=== PATIENT | female | born 1935 | race Caucasian/White ===

== ENCOUNTER 2017-07-27 11:46 | Inpatient (IN) | payer BC, OTHER ==
[~2017-07-27] VITALS: Ht 154.9 cm; Wt 67.5 kg
[~2017-07-27 11:46] MED LIST: ACET-1311 PO; BNT10 PO; CHOLTAB3 PO; ESCI10TA17 PO; LORA-741 PO; MULT-506 PO; PRLSR20 PO; PRMVC TOP; RANI300T2 PO; ZOLE5INJ PO; [UNRECOGNIZED DRUG - CODE] PO
[2017-07-27] MEDS ORDERED: VTMD400 PO (12:44)
[2017-07-27] MEDS ORDERED: RANI150T3 PO (12:44)
[2017-07-27] MEDS ORDERED: ESTCR PV (12:44)
[2017-07-27] MEDS ORDERED: MULTCHW PO (12:44)
[2017-07-27] MEDS ORDERED: BNT/10 PO (12:44)
[2017-07-27] MEDS ORDERED: NUTR-706 PO (12:44)
[2017-07-27] MEDS ORDERED: GABA-113 PO (12:45)
[2017-07-27] MEDS ORDERED: ASPIRIN 81 MG CHEW PO STA (12:45)
[2017-07-27 12:59] LABS: BASO % 0.9 %; BASO ABS # 0.08 K/uL (0-0.2); COMPLETE YES; EOS % 2.2 %; HEMATOCRIT 46.8 % (37-47); IG% 0.1 %; LYMPH % 25.8 %; LYMPH ABS # 2.31 K/uL (1.2-3.4); MEAN CORPUSCULAR HEMOGLOBIN 29.9 pg (25-34); MEAN CORPUSCULAR HGB CONC 31.8 g/dl (32-36); MEAN PLATELET VOLUME 9.4 fL (7.4-10.4); MONO % 14.7 %; NEUT % 56.3 %; PLATELET COUNT 276 K/uL (130-400); RED BLOOD COUNT 4.98 M/uL (4.2-5.4); WHITE BLOOD COUNT 8.95 K/uL (4.8-10.8)
[2017-07-27 13:10] LABS: PROTHROMBIN TIME (PATIENT) 10.4 SECONDS (9.0-12.0)
[2017-07-27 13:24] LABS: BLOOD UREA NITROGEN 12 mg/dl (7-18); BUN/CREATININE RATIO 12.2 (10-20); CARBON DIOXIDE 30 mmol/L (21-32); CHLORIDE 105 mmol/L (98-107); CREATININE 0.95 mg/dl (0.60-1.20); GLUCOSE 90 mg/dl (70-99); MAGNESIUM 2.5 mg/dl (1.8-2.4); SODIUM 139 mmol/L (136-145)
--- NOTE | 2017-07-27 13:27 | EMERGENCY ROOM VISIT NOTE ---
History Report prepared by Silvio: Rogers Chau Under the Supervision of: Dr. Randolph Muñoz M.D. First contact with patient: 12:38 Chief Complaint: NEURO SYMPTOMS Stated Complaint: SCIATICA-LEFT LEG/ARM, DOUBLE VISION Nursing Triage Summary: was having left arm numbness and weakness called PCP and was told to come to ER for evaluation. patient states heaviness and numbness of the left arm has improved. with chonic ciaticia pain and taken gabapentin for this states left leg weakness is normal for her. History of Present Illness The patient is a 82 year old female who presents to the Emergency Room with complaints of improving left arm numbness and weakness starting around 6 and half hours ago which improved about two hours ago. The patient sates that she has a history of sciatica in her left leg, and her back was hurting last night, though her left arm and leg felt normal. She denies any numbness or tingling in her face, and she has no history of strokes. The patient states that she does not take any blood thinners. Source of History: patient Onset: 6 and a half hours ago Position: arm (left) Quality: numbness, other (weakness) Timing: other (improving) Associated Symptoms: No numbness (in the face) Review of Systems See HPI for pertinent positives & negatives. A total of 10 systems reviewed and were otherwise negative. Past Medical & Surgical Medical Problems: (1) GERD (gastroesophageal reflux disease) (2) IRRITABLE BOWEL SYNDROME (3) OSTEOPOROSIS NOS Family History FHx: gallbladder disease Social History Smoking Status: Never Smoker Alcohol Use: none Marital Status: Occupation Status: retired Current/Historical Medications Scheduled Cholecalciferol (Vitamin D3), 800 UNITS PO QAM Dicyclomine HCl (Dicyclomine HCl), 10 MG PO AMPM Enteral Nutrition Formula (Ensure), 1 CAN PO DAILY Estradiol Vaginal (Estrace), 0.5 APPL PV 2XWK Gabapentin (Neurontin), 300 MG PO HS Multiple Vitamins W/ Minerals (Centrum Silver), 1 TAB PO DAILY Omeprazole (Prilosec), 20 MG PO DAILY Ranitidine (Zantac), 300 MG PO HS Zoledronic Acid (Reclast), 5 MG PO YEARLY Scheduled PRN Acetaminophen (Tylenol), 325 MG PO UD PRN for Pain Allergies Coded Allergies: Sulfa Drugs (Verified Allergy, Mild, rash, 03/24/13) Cephalosporins (Verified Allergy, Unknown, KELFEX, 04/16/11) HMG-CoA-R Inhibitors (Verified Allergy, Unknown, CRESTOR, 04/16/11) Macrolides (Verified Allergy, Unknown, 04/16/11) Niacin (Verified Allergy, Unknown, 04/16/11) Gabapentin (Verified Adverse Reaction, Intermediate, unknown, 04/16/11) Risedronate (Verified Adverse Reaction, Intermediate, unknown, 04/16/11) Physical Exam Vital Signs Date Time Temp Pulse Resp B/P (MAP) Pulse Ox O2 Delivery O2 Flow Rate FiO2 07/27/17 14:35 76 20 162/88 96 Room Air 07/27/17 13:03 73 20 183/93 95 Room Air 07/27/17 12:17 79 07/27/17 12:14 81 20 180/100 97 Room Air 07/27/17 12:08 97 Room Air 07/27/17 11:53 36.8 111 18 160/95 97 Room Air Physical Exam GENERAL: Patient is in no acute distress. HEENT: No acute trauma, normocephalic atraumatic, mucous membranes moist, no nasal congestion, no scleral icterus. NECK: No stridor, no adenopathy, no meningismus, trachea is midline. LUNGS: Clear to auscultation bilaterally, no wheeze, no rhonchi, breath sounds equal. HEART: Without murmurs gallops or rubs, regular rate and rhythm. ABDOMEN: Soft, nontender, bowel sounds positive, no hernias, no peritonitis. EXTREMITIES: No cyanosis or edema, full range of motion of all the joints without pain or difficulty, no signs for acute trauma. NEUROLOGIC: Oriented x 3, no acute motor or sensory deficits, no focal weakness. Maybe slight weakness in the left leg compared to the right but no drift. No speech slur or facial droop. No cerebellar dysfunction. SKIN: No rash, no jaundice, no diaphoresis. Medical Decision & Procedures ER Provider Diagnostic Interpretation: Radiology results as stated below per my review and radiologist interpretation: CT HEAD WITHOUT CONTRAST (CT) CLINICAL HISTORY: Stroke LEFT ARM TINGLING. APRAXIA. COMPARISON STUDY: 04/22/2011 TECHNIQUE: Axial CT of the brain is performed from the vertex to the skull base. IV contrast was not administered for this examination. A dose lowering technique was utilized adhering to the principles of ALARA. CT DOSE: 788.63 mGycm FINDINGS: No intra or extra-axial mass lesions are visualized. There is no CT evidence of acute cortical infarction. There is no evidence of midline shift. There is no acute hemorrhage. No calvarial fractures are visualized. There are patchy white matter hypodensities likely on a small vessel basis. There is a lacunar infarct within the right basal ganglia. This was not present in 2010, but appears chronic. There is no evidence of pathologic ventricular dilatation. There is a cavum septa pellucida and cavum vergae. There is no evidence of acute sinusitis. An area of hyperdensity within the basilar artery, likely represents partial volume averaging with wall calcification IMPRESSION: No acute intracranial findings Electronically signed by: Sherman Wakefield M.D. 07/27/2017 1:47 PM Dictated Date/Time: 07/27/2017 1:44 PM Laboratory Results 07/27/17 12:30 Red Blood Count 4.98, Mean Corpuscular Volume 94.0, Mean Corpuscular Hemoglobin 29.9, Mean Corpuscular Hemoglobin Concent 31.8, Mean Platelet Volume 9.4, Neutrophils (%) (Auto) 56.3, Lymphocytes (%) (Auto) 25.8, Monocytes (%) (Auto) 14.7, Eosinophils (%) (Auto) 2.2, Basophils (%) (Auto) 0.9, Neutrophils # (Auto ) 5.03, Lymphocytes # (Auto) 2.31, Monocytes # (Auto) 1.32, Eosinophils # (Auto ) 0.20, Basophils # (Auto) 0.08 07/27/17 12:30 Test 07/27/17 12:30 07/27/17 12:40 07/27/17 13:00 White Blood Count 8.95 K/uL (4.8-10.8) Red Blood Count 4.98 M/uL (4.2-5.4) Hemoglobin 14.9 g/dL (12.0-16.0) Hematocrit 46.8 % (37-47) Mean Corpuscular Volume 94.0 fL (80-100) Mean Corpuscular Hemoglobin 29.9 pg (25-34) Mean Corpuscular Hemoglobin Concent 31.8 g/dl (32-36) Platelet Count 276 K/uL (130-400) Mean Platelet Volume 9.4 fL (7.4-10.4) Neutrophils (%) (Auto) 56.3 % Lymphocytes (%) (Auto) 25.8 % Monocytes (%) (Auto) 14.7 % Eosinophils (%) (Auto) 2.2 % Basophils (%) (Auto) 0.9 % Neutrophils # (Auto) 5.03 K/uL (1.4-6.5) Lymphocytes # (Auto) 2.31 K/uL (1.2-3.4) Monocytes # (Auto) 1.32 K/uL (0.11-0.59) Eosinophils # (Auto) 0.20 K/uL (0-0.5) Basophils # (Auto) 0.08 K/uL (0-0.2) RDW Standard Deviation 48.7 fL (36.4-46.3) RDW Coefficient of Variation 14.2 % (11.5-14.5) Immature Granulocyte % (Auto) 0.1 % Immature Granulocyte # (Auto) 0.01 K/uL (0.00-0.02) Prothrombin Time 10.4 SECONDS (9.0-12.0) Prothromb Time International Ratio 1.0 (0.9-1.1) Activated Partial Thromboplast Time 26.1 SECONDS (21.0-31.0) Partial Thromboplastin Ratio 1.0 Anion Gap 4.0 mmol/L (3-11) Est Creatinine Clear Calc Drug Dose 41.5 ml/min Estimated GFR () 65.6 Estimated GFR (Non- 56.6 BUN/Creatinine Ratio 12.2 (10-20) Calcium Level 9.0 mg/dl (8.5-10.1) Magnesium Level 2.5 mg/dl (1.8-2.4) Total Creatine Kinase 50 U/L (26-192) Creatine Kinase MB 1.0 ng/ml (0.5-3.6) Creatine Kinase MB Ratio 2.0 (0-3.0) Troponin I < 0.015 ng/ml (0-0.045) Thyroid Stimulating Hormone (TSH) 3.000 uIu/ml (0.300-4.500) Bedside Glucose 83 mg/dl (70-90) Bedside Prothrombin Time INR 1.0 (0.9-1.1) Laboratory results reviewed by me. Medications Administered Medications (Trade) Dose Ordered Sig/Bradly Route Start Time Stop Time Status Last Admin Dose Admin Sodium Chloride 1,000 ml @ 50 mls/hr Q20H IV 07/27/17 12:45 08/26/17 12:44 07/27/17 14:33 50 MLS/HR Aspirin (Aspirin Chew) 324 mg NOW STAT PO 07/27/17 12:45 07/27/17 12:49 DC 07/27/17 14:33 324 MG ECG Indication: other (stroke symptoms) Rate (beats per minute): 73 Rhythm: normal sinus Findings: no acute ischemic change, no ectopy ED Course 1238: The patient was evaluated in room B12. A complete history and physical exam was performed. 1245: Aspirin 324mg PO, Sodium Chloride 1000 ml @ 50 mls/hr IV 1401: I reevaluated the patient, and I discussed the test results, and she was agreeable to the treatment plan. 1405: Discussed the patient's case with KOSTA Dixon. The patient will be evaluated for further management. Medical Decision Differential Diagnoses include: dehydration, stroke, TIA, intracranial bleed, nerve impingement, electrolyte imbalance, infection, UTI. There is no leukocytosis or concerning anemia. No significant electrolyte abnormality, kidney failure. EKG shows a sinus rhythm, no acute ischemia. Cardiac enzyme testing times one is not consistent with acute cardiac injury. Brain CT does not show any acute bleed or mass effect. Urinalysis does not show infection. There is no coagulopathy. On exam, the patient has some subtle left leg weakness. Her symptoms though apparently have improved significantly since her arrival in the emergency room. The patient presents with left arm weakness and clumsiness. The nursing staff here felt that her left arm was weaker earlier before my evaluation. The patient was given oral aspirin. She is resting comfortably. No return of her weakness or numbness. I did speak with the patient and case management. I spoke to the on-call hospitalist. Further workup in the hospital for TIA or stroke is indicated. Medication Reconcilliation Current Medication List: was personally reviewed by me Blood Pressure Screening Patient's blood pressure: Elevated blood pressure Blood pressure disposition: Referred to PCP Consults Time Called: 1357 Consulting Physician: KOSTA Dixon Returned Call: [phone] Discussed the patient's case with KOSTA Dixon. The patient will be evaluated for further management. Impression Primary Impression: Stroke-like symptoms Scribe Attestation The scribe's documentation has been prepared under my direction and personally reviewed by me in its entirety. I confirm that the note above accurately reflects all work, treatment, procedures, and medical decision making performed by me. Departure Information Dispostion Being Evaluated By Hospitalist Referrals Caroline Liu M.D. (PCP) Patient Instructions My [facility] Stroke History Time Last Known Well 6.5 hours ago Stroke t-PA Criteria Reviewed Does NOT meet criteria for t-PA Reason t-PA Not Given Treatment not indicated
--- NOTE | 2017-07-27 13:48 | DIAGNOSTIC IMAGING REPORT ---
CT HEAD WITHOUT CONTRAST (CT) CLINICAL HISTORY: Stroke LEFT ARM TINGLING. APRAXIA. COMPARISON STUDY: 04/22/2011 TECHNIQUE: Axial CT of the brain is performed from the vertex to the skull base. IV contrast was not administered for this examination. A dose lowering technique was utilized adhering to the principles of ALARA. CT DOSE: 788.63 mGycm FINDINGS: No intra or extra-axial mass lesions are visualized. There is no CT evidence of acute cortical infarction. There is no evidence of midline shift. There is no acute hemorrhage. No calvarial fractures are visualized. There are patchy white matter hypodensities likely on a small vessel basis. There is a lacunar infarct within the right basal ganglia. This was not present in 2010, but appears chronic. There is no evidence of pathologic ventricular dilatation. There is a cavum septa pellucida and cavum vergae. There is no evidence of acute sinusitis. An area of hyperdensity within the basilar artery, likely represents partial volume averaging with wall calcification IMPRESSION: No acute intracranial findings Electronically signed by: Sherman Wakefield M.D. 07/27/2017 1:47 PM Dictated Date/Time: 07/27/2017 1:44 PM
[2017-07-27] MEDS: SODIUM CHLORIDE 0.9% 1000ML 1,000 ML IV SCH (14:33)
[2017-07-27] MEDS ORDERED: ACETAMINOPHEN 325 MG TAB PO PRN (15:15)
[2017-07-27] MEDS ORDERED: ONDANSETRON INJ 2 MG/ML 2 ML VIAL IV PRN (15:15)
[2017-07-27] MEDS ORDERED: POLYETHYLENE (MIRALAX) 17 GM PACK PO PRN (15:15)
[2017-07-27] MEDS ORDERED: PHARMACIST DISCHARGE MED REC CONSULT PRN (15:15)
[2017-07-27] MEDS ORDERED: LORAZEPAM 2 MG/ML 1 ML VIAL IV ONE (15:30)
--- NOTE | 2017-07-27 15:50 | History and Physical ---
History & Physical Date & Time of Service: Jul 27, 2017 at 15:29 Chief Complaint: Sciatica-Left Leg/Arm, Double Vision Primary Care Physician: Caroline Liu M.D. 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 She was in her normal state of health when she woke up this morning. 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 Describes a feeling of weakness, as well as numbness and a sensation of cold in the L arm, forearm and hand. Was able to place cane in other hand and ambulate downstairs without problem. Denies any dysphagia or difficulty eating breakfast. Contacted her PCP and was advised to come to the ED for further evaluation. Symptoms continued to improve and completed resolved within 4 hours of their start. States that her L arm still feels "funny" but denies any weakness, numbness or sensory deficit. Denies any confusion, headache , blurred vision, CP, SOB, new weakness in extremities. Patient endorses a chronic weakness/numbness in L leg 2/2 sciatica. No history of heart disease, arrhythmias, prior CVA, or history of DVT/PE. Currently lives alone in a house and ambulates with a cane. Past Medical/Surgical History Medical Problems: (1) DIVERTICULITIS COLON (W/O MENT OF HEMORRHAGE) Status: Resolved (2) IRRITABLE BOWEL SYNDROME Status: Chronic (3) OSTEOPOROSIS NOS Status: Chronic (4) URIN TRACT INFECTION NOS Status: Resolved Family History FHx: gallbladder disease Social History Smoking Status: Never Smoker Marital Status: Housing status: lives alone Occupational Status: retired Immunizations History of Influenza Vaccine: N/A Influenza Vaccine Date: Aug 13, 2009 History of Tetanus Vaccine?: Unknown Tetanus Immunization Date: Jul 23, 2005 History of Pneumococcal: Yes Pneumococcal Date: April 03, 2003 History of Hepatitis B Vaccine: Unknown Multi-Drug Resistant Organisms History of MDRO: No Allergies Coded Allergies: Sulfa Drugs (Verified Allergy, Mild, rash, 03/24/13) Cephalosporins (Verified Allergy, Unknown, KELFEX, 04/16/11) HMG-CoA-R Inhibitors (Verified Allergy, Unknown, CRESTOR, 04/16/11) Macrolides (Verified Allergy, Unknown, 04/16/11) Niacin (Verified Allergy, Unknown, 04/16/11) Gabapentin (Verified Adverse Reaction, Intermediate, unknown, 04/16/11) Risedronate (Verified Adverse Reaction, Intermediate, unknown, 04/16/11) Home Medications Scheduled Cholecalciferol (Vitamin D3), 800 UNITS PO QAM Dicyclomine HCl (Dicyclomine HCl), 10 MG PO AMPM Enteral Nutrition Formula (Ensure), 1 CAN PO DAILY Estradiol Vaginal (Estrace), 0.5 APPL PV 2XWK Gabapentin (Neurontin), 300 MG PO HS Multiple Vitamins W/ Minerals (Centrum Silver), 1 TAB PO DAILY Omeprazole (Prilosec), 20 MG PO DAILY Ranitidine (Zantac), 300 MG PO HS Zoledronic Acid (Reclast), 5 MG PO YEARLY Scheduled PRN Acetaminophen (Tylenol), 325 MG PO UD PRN for Pain Review of Systems Ten systems reviewed and negative except as noted in the HPI. Physical Exam Vital Signs Date Time Temp Pulse Resp B/P (MAP) Pulse Ox O2 Delivery O2 Flow Rate FiO2 07/27/17 15:19 73 20 169/82 96 Room Air 07/27/17 14:35 76 20 162/88 96 Room Air 07/27/17 13:03 73 20 183/93 95 Room Air 07/27/17 12:17 79 07/27/17 12:14 81 20 180/100 97 Room Air 07/27/17 12:08 97 Room Air 07/27/17 11:53 36.8 111 18 160/95 97 Room Air General Appearance: WD/WN, no apparent distress Head: normocephalic, atraumatic Eyes: normal inspection, PERRL, EOMI, sclerae normal ENT: normal ENT inspection (hearing loss in R ear) Neck: supple, no adenopathy, thyroid normal, trachea midline Respiratory/Chest: chest non-tender, lungs clear, normal breath sounds, no respiratory distress, no accessory muscle use Cardiovascular: regular rate, rhythm, no JVD, no murmur, normal peripheral pulses Abdomen/GI: normal bowel sounds, non tender, soft, no organomegaly Back: normal inspection Extremities/Musculoskelatal: normal inspection, no calf tenderness, normal capillary refill, no pedal edema Neurologic/Psych: binder caser II-XII nml as tested, no motor/sensory deficits (5/5 MARLA in all four extremities. Cerebellar tests intact. No pronator drift. ), alert, normal mood/affect, oriented x 3 Skin: normal color, warm/dry, no rash Diagnostics Laboratory Results Results Past 24 Hours Test 07/27/17 12:30 07/27/17 12:40 Range/Units White Blood Count 8.95 4.8-10.8 K/uL Red Blood Count 4.98 4.2-5.4 M/uL Hemoglobin 14.9 12.0-16.0 g/dL Hematocrit 46.8 37-47 % Mean Corpuscular Volume 94.0 80-100 fL Mean Corpuscular Hemoglobin 29.9 25-34 pg Mean Corpuscular Hemoglobin Concent 31.8 32-36 g/dl Platelet Count 276 130-400 K/uL Mean Platelet Volume 9.4 7.4-10.4 fL Neutrophils (%) (Auto) 56.3 % Lymphocytes (%) (Auto) 25.8 % Monocytes (%) (Auto) 14.7 % Eosinophils (%) (Auto) 2.2 % Basophils (%) (Auto) 0.9 % Neutrophils # (Auto) 5.03 1.4-6.5 K/uL Lymphocytes # (Auto) 2.31 1.2-3.4 K/uL Monocytes # (Auto) 1.32 0.11-0.59 K/uL Eosinophils # (Auto) 0.20 0-0.5 K/uL Basophils # (Auto) 0.08 0-0.2 K/uL RDW Standard Deviation 48.7 36.4-46.3 fL RDW Coefficient of Variation 14.2 11.5-14.5 % Immature Granulocyte % (Auto) 0.1 % Immature Granulocyte # (Auto) 0.01 0.00-0.02 K/uL Prothrombin Time 10.4 9.0-12.0 SECONDS Prothromb Time International Ratio 1.0 0.9-1.1 Activated Partial Thromboplast Time 26.1 21.0-31.0 SECONDS Partial Thromboplastin Ratio 1.0 Sodium Level 139 136-145 mmol/L Potassium Level 4.0 3.5-5.1 mmol/L Chloride Level 105 98-107 mmol/L Carbon Dioxide Level 30 21-32 mmol/L Anion Gap 4.0 3-11 mmol/L Blood Urea Nitrogen 12 7-18 mg/dl Creatinine 0.95 0.60-1.20 mg/dl Est Creatinine Clear Calc Drug Dose 41.5 ml/min Estimated GFR () 65.6 Estimated GFR (Non- 56.6 BUN/Creatinine Ratio 12.2 10-20 Random Glucose 90 70-99 mg/dl Calcium Level 9.0 8.5-10.1 mg/dl Magnesium Level 2.5 1.8-2.4 mg/dl Total Creatine Kinase 50 26-192 U/L Creatine Kinase MB 1.0 0.5-3.6 ng/ml Creatine Kinase MB Ratio 2.0 0-3.0 Troponin I < 0.015 0-0.045 ng/ml Thyroid Stimulating Hormone (TSH) 3.000 0.300-4.500 uIu/ml Bedside Glucose 83 70-90 mg/dl Impression Assessment and Plan Patient is an 82yo F with a PMH of 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 Stroke/TIA rule out: -Patient's symptoms lasted for 4 hours before resolving in ED -Denies PMH of heart disease, CVA -CT head without acute intracranial findings. Shows a chronic lacunar infarct within R basal ganglia -Normal neuro exam -Given aspirin in ED, started on atorvastatin -Ordered MRI brain without contrast, MRA head and neck, echo with bubble study -PT, OT speech evals, per protocol -Hgb a1c and fasting lipids in AM -Neuro consulted -Monitor on tele Left-sided Sciatica: -Chronic L leg numbness/weakness for past year -H/o degenerative lumbar disc disease -Continue Gabapentin IBS: -Stable -Continue dicyclomine GERD: -Continue ranitidine Osteoporosis: -H/o vertebral fx 2/2 osteoporosis -Reclast 5mg infusion yearly DVT Ppx: SCDs, per stroke rule out protocol Code status: FULL PCP: Noe Dispo: LES consulted to help with discharge placement due to patient of 82 yo living at home Attending Physician Addendum, Dr. Miles I have examined the patient and worked with MAINE Puente on the above assessment and plan and would like to add the following comments This is a 82 F with left arm weakness at home x 4 hours which resolved without intervention and arrived to the ED with negative CT head imaging. On exam in the ED, patient had non focal neurological exam and no impairments of her upper extremities. For example, I was able to observe her capable of make use of fine hand movements to open her purse to search for her home medication lists. Will continue to further explore neurological differentiations with MRI/MRA. Patient also placed on telemetry monitoring if symptoms caused by arrhythmia however has denied cardiac respiratory symptoms with regular cardiac exam and EKG. Continue home medications for neuropathic pain. Level of Care Telemetry Resuscitation Status FULL RESUSCITATION VTE Prophylaxis VTE Risk Assessment Done? Y/N: Yes Risk Level: Moderate Given or contraindicated: SCD's Social Service Consult >80 yr.& Lives Alone
[2017-07-27 17:29] VITALS: BP 126/84; TEMP 36.8; O2SAT 96; Ht 154.9 cm; Wt 67.5 kg
[2017-07-27] MEDS ORDERED: LORAZEPAM INJ 0.5 MG in SYRINGE 0.75 ML IV SCH (18:00)
[2017-07-27] MEDS: DICYCLOMINE HCL 20 MG TAB PO SCH ×2 (18:23→21:17)
[2017-07-27 18:37] LABS: URINE APPEARANCE CLEAR (CLEAR); URINE BILIRUBIN NEG (NEG); URINE COLOR YELLOW; URINE NITRITE NEG (NEG); URINE SPECIFIC GRAVITY 1.014 (1.000-1.030); UROBILINOGEN NEG (NEG); ZZUR CULT IF INDIC CLEAN CATCH NO
[2017-07-27 18:41] LABS: MANUAL MICROSCOPIC REQUIRED? NO; REVIEW REQ? NO
[2017-07-27 20:11] VITALS: O2SAT 96
[2017-07-27 21:11] VITALS: BP 118/74; PULSE 79; TEMP 37.1; O2SAT 92
[2017-07-27] MEDS: RANITIDINE HCL 150 MG TAB PO SCH (21:17)
[2017-07-27] MEDS: GABAPENTIN 300 MG CAP PO SCH (21:17)
[2017-07-27 23:40] VITALS: BP 135/84; PULSE 86; TEMP 36.4; O2SAT 93
[2017-07-28] VITALS (8 sets, daily range): BP systolic 119–126; BP diastolic 70–83; PULSE 75–95; TEMP 36.4–36.8; O2SAT 93–96
[2017-07-28] MEDS ORDERED: GADAVIST IV PRN
[2017-07-28] MEDS: DICYCLOMINE HCL 20 MG TAB PO SCH ×4 (06:08→20:35)
[2017-07-28 06:13] LABS: ESTIMATED AVERAGE GLUCOSE 120 mg/dl; HA1C FLAG Normal (Normal)
[2017-07-28] MEDS ORDERED: BOOST VANILLA PO SCH ×2 (06:30)
[2017-07-28 06:35] LABS: BASO % 0.8 %; BASO ABS # 0.07 K/uL (0-0.2); COMPLETE YES; EOS % 2.7 %; HEMATOCRIT 44.1 % (37-47); IG% 0.3 %; LYMPH % 22.6 %; LYMPH ABS # 2.04 K/uL (1.2-3.4); MEAN CELL VOLUME 91.9 fL (80-100); MEAN CORPUSCULAR HGB CONC 33.8 g/dl (32-36); MEAN PLATELET VOLUME 9.6 fL (7.4-10.4); MONO % 16.6 %; PLATELET COUNT 242 K/uL (130-400); WHITE BLOOD COUNT 9.01 K/uL (4.8-10.8)
[2017-07-28 07:04] LABS: BUN/CREATININE RATIO 14.2 (10-20); CALCIUM 8.9 mg/dl (8.5-10.1); CREATININE 0.84 mg/dl (0.60-1.20); POTASSIUM 3.8 mmol/L (3.5-5.1)
[2017-07-28 07:07] LABS: CHOLESTEROL/HDL RATIO 4.6
--- NOTE | 2017-07-28 07:25 | DIAGNOSTIC IMAGING REPORT ---
MRA HEAD WITHOUT CONTRAST, MRA NECK COMBO, BRAIN WITHOUT CONTRAST CLINICAL HISTORY: 82 years-old Female presenting with stroke. TECHNIQUE: Multiplanar, multisequence MR imaging of the brain was performed without use of intravenous contrast. Additionally, MR angiography of the head was performed without the use of intravenous contrast using 3-D [id number] technique, and MR angiography of the neck was performed before and after administration of intravenous contrast. 3-D volumetric and/or maximum intensity projection (MIP) images were subsequently reconstructed for review. IV contrast: 6.5 mL of Gadavist.. Stenosis measurements were based on NASCET-like criteria. COMPARISON: CT head performed earlier the same day. FINDINGS: MR brain: Proportional ventricular and sulcal prominence, likely age-related in loss. Persistent cavum septi pellucidi. No evidence of midline shift or mass effect. No restricted diffusion to suggest acute ischemia. No evidence of hemorrhage. Periventricular and subcortical white matter T2/FLAIR hyperintensity nonspecific but likely chronic small vessel ischemic change. One focus in the subcortical white matter of the right frontal lobe also demonstrates an old lacunar infarct. Probable old left cerebellar infarct. Old lacunar infarct likely present in the right basal ganglia. No extra-axial fluid collection. T2 skull base flow voids preserved. MRA head: Anterior circulation including the carotid termini and anterior and middle cerebral arteries patent. Anterior communicating artery patent. Codominant vertebral arteries. Posterior circulation including the vertebrobasilar system and superior cerebellar arteries patent. origin of the bilateral posterior cerebral arteries with widely patent posterior communicating arteries. No evidence of occlusion, stenosis, or aneurysm. MRA neck: Cervical vessels including the bilateral common and internal carotid arteries and codominant vertebral arteries patent at their origins and along their courses. Evaluation of the vertebral arteries is mildly degraded by early opacification of paravertebral veins. No evidence of occlusion, stenosis, or aneurysm. IMPRESSION: 1. No acute intracranial pathology. 2. Chronic small vessel ischemic change and old lacunar infarcts as well as probable old left cerebellar infarct. 3. No evidence of occlusion, stenosis, or aneurysm in the intracranial arteries. 4. No evidence of occlusion, stenosis, aneurysm in the cervical arteries. Electronically signed by: Zak Koroma M.D. 07/28/2017 7:24 AM Dictated Date/Time: 07/28/2017 7:09 AM
[2017-07-28] MEDS: SODIUM CHLORIDE 0.9% 1000ML 1,000 ML IV SCH (08:53)
[2017-07-28] MEDS: ATORVASTATIN 40 MG TAB PO SCH ×2 (08:53→09:38)
[2017-07-28] MEDS ORDERED: CHOLECALCIFEROL 1000 INTER.UNIT TAB PO SCH (09:00)
[2017-07-28] MEDS ORDERED: PERFLUTREN LIPID MICROSPHERE (DEFINITY) IV ONE (09:16)
--- NOTE | 2017-07-28 11:16 | ECHOCARDIOGRAM REPORT ---
*NOTICE TO RECEIVING [employer] This information is strictly Confidential and protected under [place] law. [place] law prohibits you from making any further disclosure of this information unless further disclosure is expressly permitted by the written consent of the person to whom it pertains or is authorized by law. A general authorization for the release of medical or other information is not sufficient for this purpose. Hospital accepts no responsibility if the information is made available to any other person, INCLUDING THE PATIENT. Interpretation Summary * Name: ÓSCAR VEGA Study Date: 07/28/2017 07:54 AM BP: 169/82 mmHg * Patient Location: [facility]\S\N283\S\2 HR: 90 * : 1935 (M/d/yyyy) Gender: Female Height: 61 in * Age: 82 yrs Ethnicity: [place] Weight: 148 lb * Ordering Physician: Cyndi Puente * Referring Physician: Self, Referred * Performed By: Nancy Wade RDCS * * Reason For Study: Stroke * BSA: 1.7 m2 * -- Conclusions -- * The left ventricle is normal in size. * There is moderate concentric left ventricular hypertrophy. * The left ventricular wall motion is normal. * Ejection Fraction = 65-70%. * Aortic valve sclerosis mild, without significant aortic valvular stenosis. * There is focal calcification of the noncoronary cusp. * No aortic regurgitation is present. * The interatrial septum is intact with no evidence for an atrial septal defect. * Injection of contrast documented no interatrial shunt. * Grade I diastolic dysfunction, (abnormal relaxation pattern). Procedure Details * A complete two-dimensional transthoracic echocardiogram was performed (2D, M-mode, Doppler and color flow Doppler). * The study was technically difficult. * There were technical limitations due to patient'sbody habitus * A saline contrast injection was performed to assess for cardiac shunting. * The injection was performed through an intravenous line in the right arm. * The attending nurse who injected the saline contrast was Stephanie Jarquin RN. * A total of 20 cc of agitated saline was given. * A contrast injection of Definity was performed to improve assessment of LV function. * Contrast was injected into an intravenous site in the right arm. * One vial of Definity ultrasound contrast was diluted in normal saline to a total volume of 10 ml. A total of '2' ml of solution was administered during imaging. * Lot # [id number] of Definity utilized for procedure. * Expiration date SEP 16. * The attending nurse who injected the contrast agent was Stephanie Jarquin RN. Left Ventricle * The left ventricle is normal in size. * There is moderate concentric left ventricular hypertrophy. * The basal septum is thickened and angulated consistent with sigmoid septum. * Ejection Fraction = 65-70%. * Left ventricular systolic function is normal. * The left ventricular wall motion is normal. Right Ventricle * The right ventricle is normal in size and function. Atria * The left atrial size is normal. * Right atrial size is normal. * The interatrial septum is intact with no evidence for an atrial septal defect. * Injection of contrast documented no interatrial shunt. Mitral Valve * The mitral valve is normal. * There is no mitral valve stenosis. * There is trace mitral regurgitation. Tricuspid Valve * The tricuspid valve is normal. * There is no tricuspid stenosis. * There is trace tricuspid regurgitation. Aortic Valve * The aortic valve is trileaflet. * Aortic valve sclerosis mild, without significant aortic valvular stenosis. * There is focal calcification of the noncoronary cusp. * No hemodynamically significant valvular aortic stenosis. * No aortic regurgitation is present. Pulmonic Valve * The pulmonic valve is not well visualized. Great Vessels * The aortic root is normal size. Pericardium/Pleural * There is no pericardial effusion. Great Vessels * Normal inferior vena cava diameter and respiratory variation suggests normal central venous pressure. Left Ventricular Diastolic Function * Grade I diastolic dysfunction, (abnormal relaxation pattern). MMode 2D Measurements and Calculations IVSd 1.0 cm LVIDd 3.7 cm LVIDs 2.4 cm LVPWd 0.84 cm IVS/LVPW 1.2 FS 34.2 % EDV(Teich) 58.9 ml ESV(Teich) 21.2 ml EF(Teich) 64.0 % EDV(cubed) 51.5 ml ESV(cubed) 14.7 ml EF(cubed) 71.5 % LV mass(C)d 102.0 grams LV mass(C)dI 61.3 grams/m\S\2 CO(Teich) 3.6 l/min CI(Teich) 2.2 l/min/m\S\2 SV(Teich) 37.7 ml SI(Teich) 22.7 ml/m\S\2 CO(cubed) 3.5 l/min CI(cubed) 2.1 l/min/m\S\2 SV(cubed) 36.8 ml SI(cubed) 22.1 ml/m\S\2 Ao root diam 3.4 cm Ao root area 8.9 cm\S\2 ACS 1.4 cm LA dimension 2.5 cm asc Aorta Diam 3.1 cm LA/Ao 0.73 LVOT diam 2.0 cm LVOT area 3.1 cm\S\2 LVAd ap4 24.6 cm\S\2 LVLd ap4 6.8 cm EDV(MOD-sp4) 72.4 ml LVAs ap4 12.1 cm\S\2 LVLs ap4 5.3 cm ESV(MOD-sp4) 23.6 ml EF(MOD-sp4) 67.4 % LVAd ap2 23.1 cm\S\2 LVLd ap2 6.6 cm EDV(MOD-sp2) 65.2 ml LVAs ap2 12.2 cm\S\2 LVLs ap2 5.2 cm ESV(MOD-sp2) 23.5 ml EF(MOD-sp2) 64.0 % CO(MOD-sp4) 4.7 l/min CI(MOD-sp4) 2.8 l/min/m\S\2 SV(MOD-sp4) 48.8 ml SI(MOD-sp4) 29.4 ml/m\S\2 CO(MOD-sp2) 4.0 l/min CI(MOD-sp2) 2.4 l/min/m\S\2 SV(MOD-sp2) 41.7 ml SI(MOD-sp2) 25.1 ml/m\S\2 Doppler Measurements and Calculations MV E max serafin 62.1 cm/sec MV A max serafin 115.4 cm/sec MV E/A 0.54 MV dec time 0.40 sec Ao V2 max 127.6 cm/sec Ao max PG 6.5 mmHg Ao max PG (full) 2.2 mmHg MEAGHAN(V,A) 2.5 cm\S\2 MEAGHAN(V,D) 2.5 cm\S\2 LV V1 max PG 4.3 mmHg LV V1 max 103.3 cm/sec PA V2 max 82.8 cm/sec PA max PG 2.7 mmHg PA acc slope 710.5 cm/sec\S\2 PA acc time 0.07 sec PA pr(Accel) 48.9 mmHg
--- NOTE | 2017-07-28 11:18 | Progress Note ---
Subjective Date of Service: Jul 28, 2017. Subjective Pt evaluation today including: conversation w/ patient, physical exam, lab review, review of studies, review of inpatient medication list Saw/examined the patient in room 283 Patient is doing well today Denies any residual symptoms L hand weakness is resolved No other issues to note today Problem List Medical Problems: (1) Stroke-like symptoms Status: Acute Review of Systems Constitutional: No fever, No chills Respiratory: No cough, No sputum, No shortness of breath Cardiac: No chest pain, No edema Abdomen: No pain, No nausea, No vomiting, No diarrhea Neurologic: + weakness (L hand, improved now), + balance problems (baseline balance problems/uses cane for ambulation), No paralysis, No numbness/tingling, No vertigo Heme: No abnormal bleeding/bruising Medications Current Inpatient Medications Medications (Trade) Dose Ordered Sig/Bradly Route Start Time Stop Time Status Last Admin Dose Admin Sodium Chloride 1,000 ml @ 50 mls/hr Q20H IV 07/27/17 12:45 08/26/17 12:44 07/28/17 08:53 50 MLS/HR Atorvastatin Calcium (Lipitor Tab) 40 mg QAM PO 07/28/17 09:00 08/27/17 08:59 Miscellaneous Information (Pharmacist Discharge Med Rec Consult) 1 ea UD PRN N/A 07/27/17 15:15 08/26/17 15:14 Acetaminophen (Tylenol Tab) 650 mg Q4H PRN PO 07/27/17 15:15 08/26/17 15:14 Ondansetron HCl (Zofran Inj) 4 mg Q6H PRN IV 07/27/17 15:15 08/26/17 15:14 Polyethylene (Miralax Powder Packet) 17 gm DAILY PRN PO 07/27/17 15:15 08/26/17 15:14 Cholecalciferol (Vitamin D Tab) 1,000 inter.unit QAM PO 07/28/17 09:00 08/27/17 08:59 07/28/17 08:53 1,000 INTER.UNIT Dicyclomine HCl (Bentyl Tab) 5 mg ACHS PO 07/27/17 16:00 08/26/17 15:59 07/28/17 06:08 5 MG Gabapentin (Neurontin Cap) 300 mg HS PO 07/27/17 21:00 08/26/17 20:59 07/27/17 21:17 300 MG Ranitidine HCl (zANTac TAB) 300 mg HS PO 07/27/17 21:00 08/26/17 20:59 07/27/17 21:17 300 MG Enteral Nutritional Formula (Boost) 1 can DAILYBB PO 07/28/17 06:30 08/27/17 06:59 07/28/17 06:09 1 CAN Gadobutrol (Gadavist) 6.5 mmol UD PRN IV 07/28/17 00:00 08/01/17 00:00 Aspirin (Ecotrin Tab) 81 mg QAM PO 07/29/17 09:00 08/28/17 08:59 Objective Vital Signs Date Time Temp Pulse Resp B/P (MAP) Pulse Ox O2 Delivery O2 Flow Rate FiO2 07/28/17 08:00 95 Room Air 07/28/17 07:22 36.8 88 18 119/70 (86) 95 Room Air 07/28/17 04:00 Room Air 07/28/17 03:13 36.4 75 18 122/76 (91) 93 Room Air 07/28/17 00:00 Room Air 07/27/17 23:40 36.4 86 18 135/84 (101) 93 Room Air 07/27/17 21:11 37.1 79 18 118/74 (89) 92 Room Air 07/27/17 20:11 96 Room Air 07/27/17 17:29 36.8 18 126/84 96 Room Air 07/27/17 16:40 77 18 126/84 96 07/27/17 15:19 73 20 169/82 96 Room Air 07/27/17 14:35 76 20 162/88 96 Room Air 07/27/17 13:03 73 20 183/93 95 Room Air 07/27/17 12:17 79 07/27/17 12:14 81 20 180/100 97 Room Air 07/27/17 12:08 97 Room Air 07/27/17 11:53 36.8 111 18 160/95 97 Room Air Physical Exam General Appearance: no apparent distress Respiratory/Chest: lungs clear, normal breath sounds, no respiratory distress, no accessory muscle use Cardiovascular: regular rate, rhythm, no edema, no murmur Extremities: normal inspection, no pedal edema, no calf tenderness Neurologic/Psychiatric: palliative medicine physician II-XII nml as tested, no motor/sensory deficits, alert, normal mood/affect, oriented x 3 Laboratory Results Last 24 Hours Test 07/27/17 12:30 07/27/17 12:40 07/27/17 13:00 07/27/17 18:00 White Blood Count 8.95 K/uL Red Blood Count 4.98 M/uL Hemoglobin 14.9 g/dL Hematocrit 46.8 % Mean Corpuscular Volume 94.0 fL Mean Corpuscular Hemoglobin 29.9 pg Mean Corpuscular Hemoglobin Concent 31.8 g/dl Platelet Count 276 K/uL Mean Platelet Volume 9.4 fL Neutrophils (%) (Auto) 56.3 % Lymphocytes (%) (Auto) 25.8 % Monocytes (%) (Auto) 14.7 % Eosinophils (%) (Auto) 2.2 % Basophils (%) (Auto) 0.9 % Neutrophils # (Auto) 5.03 K/uL Lymphocytes # (Auto) 2.31 K/uL Monocytes # (Auto) 1.32 K/uL Eosinophils # (Auto) 0.20 K/uL Basophils # (Auto) 0.08 K/uL RDW Standard Deviation 48.7 fL RDW Coefficient of Variation 14.2 % Immature Granulocyte % (Auto) 0.1 % Immature Granulocyte # (Auto) 0.01 K/uL Prothrombin Time 10.4 SECONDS Prothromb Time International Ratio 1.0 Activated Partial Thromboplast Time 26.1 SECONDS Partial Thromboplastin Ratio 1.0 Sodium Level 139 mmol/L Potassium Level 4.0 mmol/L Chloride Level 105 mmol/L Carbon Dioxide Level 30 mmol/L Anion Gap 4.0 mmol/L Blood Urea Nitrogen 12 mg/dl Creatinine 0.95 mg/dl Est Creatinine Clear Calc Drug Dose 41.5 ml/min Estimated GFR () 65.6 Estimated GFR (Non- 56.6 BUN/Creatinine Ratio 12.2 Random Glucose 90 mg/dl Estimated Average Glucose 120 mg/dl Hemoglobin A1c 5.8 % Calcium Level 9.0 mg/dl Magnesium Level 2.5 mg/dl Total Creatine Kinase 50 U/L Creatine Kinase MB 1.0 ng/ml Creatine Kinase MB Ratio 2.0 Troponin I < 0.015 ng/ml Thyroid Stimulating Hormone (TSH) 3.000 uIu/ml Bedside Glucose 83 mg/dl Bedside Prothrombin Time INR 1.0 Urine Color YELLOW Urine Appearance CLEAR Urine pH 8.0 Urine Specific [place] 1.014 Urine Protein NEG Urine Glucose (UA) NEG Urine Ketones NEG Urine Occult Blood NEG Urine Nitrite NEG Urine Bilirubin NEG Urine Urobilinogen NEG Urine Leukocyte Esterase SMALL Urine WBC (Auto) 1-5 /hpf Urine RBC (Auto) 0-4 /hpf Urine Hyaline Casts (Auto) 0 /lpf Urine Epithelial Cells (Auto) 5-10 /lpf Urine Bacteria (Auto) NEG Test 07/28/17 06:15 White Blood Count 9.01 K/uL Red Blood Count 4.80 M/uL Hemoglobin 14.9 g/dL Hematocrit 44.1 % Mean Corpuscular Volume 91.9 fL Mean Corpuscular Hemoglobin 31.0 pg Mean Corpuscular Hemoglobin Concent 33.8 g/dl Platelet Count 242 K/uL Mean Platelet Volume 9.6 fL Neutrophils (%) (Auto) 57.0 % Lymphocytes (%) (Auto) 22.6 % Monocytes (%) (Auto) 16.6 % Eosinophils (%) (Auto) 2.7 % Basophils (%) (Auto) 0.8 % Neutrophils # (Auto) 5.13 K/uL Lymphocytes # (Auto) 2.04 K/uL Monocytes # (Auto) 1.50 K/uL Eosinophils # (Auto) 0.24 K/uL Basophils # (Auto) 0.07 K/uL RDW Standard Deviation 47.4 fL RDW Coefficient of Variation 14.0 % Immature Granulocyte % (Auto) 0.3 % Immature Granulocyte # (Auto) 0.03 K/uL Sodium Level 140 mmol/L Potassium Level 3.8 mmol/L Chloride Level 106 mmol/L Carbon Dioxide Level 26 mmol/L Anion Gap 8.0 mmol/L Blood Urea Nitrogen 12 mg/dl Creatinine 0.84 mg/dl Est Creatinine Clear Calc Drug Dose 46.9 ml/min Estimated GFR () 76.1 Estimated GFR (Non- 65.6 BUN/Creatinine Ratio 14.2 Random Glucose 86 mg/dl Calcium Level 8.9 mg/dl Triglycerides Level 155 mg/dl Cholesterol Level 202 mg/dl HDL Cholesterol 44 mg/dl LDL Cholesterol, Calculated 127 mg/dl VLDL Cholesterol, Calculated 31 mg/dl Cholesterol/HDL Ratio 4.6 Assessment and Plan This is an 82 year old female with a PMH of 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
[2017-07-28] MEDS ORDERED: CLOPIDOGREL BISULFATE 75 MG TAB PO SCH (17:00)
--- NOTE | 2017-07-28 17:30 | NEUROLOGY CONSULTATION ---
DATE OF CONSULTATION: 07/28/2017 REASON FOR CONSULTATION: Left arm weakness. HISTORY OF PRESENT ILLNESS: Mrs. Peña is an 82-year-old female with a history of osteoporosis and diverticulosis, back pain and irritable bowel, who awakened on the morning of admission with left arm weakness. She indicates that typically, she will sleep on her right arm. She had not slept on the left arm and when she goes downstairs for the day, she had weakness in her left arm. She denies to me any numbness or paresthesias. The arm felt cold. She was unable to use it to ambulate with a hand rail. The symptoms lasted approximately 4 hours. There were no cranial nerve abnormalities, facial droop, slurred speech, change in vision, or associated headache. There was no vertigo. No difficulty with swallowing. There was no neck pain and no arm pain. There is no change in the strength of her left lower extremity, numbness or tingling. She has no prior history of neurologic dysfunction. She has no history of TIA, stroke, DVT, PE, or cancer. PAST MEDICAL HISTORY: Diverticulitis, irritable bowel, and osteoporosis. She reports a remote history of peptic ulcer disease. FAMILY HISTORY: Mother was said to have premature hardening of the arteries. SOCIAL HISTORY: Nonsmoker and nondrinker. Lives alone. ALLERGIES: SULFA, CEPHALOSPORINS, HMG-COA REDUCTASE INHIBITORS, MACROLIDES, NIACIN, AND GABAPENTIN, ALTHOUGH THE PATIENT IS TAKING GABAPENTIN MEDICATIONS: Vitamin D3, dicyclomine, Ensure, Estrace, gabapentin 300 at bedtime, Centrum, Prilosec, ranitidine and Reclast. None of those medicines are new or changed in dose. REVIEW OF SYSTEMS: As above. Additionally, she has not been recently ill. No fevers, chills, sweats, weight loss, head or neck trauma, chiropractor manipulation of the neck, medical or dental procedures, chest pain, palpitation, or shortness of breath. DATABASE: EKG in the Emergency Room, sinus rhythm. Cannot rule out inferior infarct, age indeterminate. Echocardiogram, EF 65%-70%, interatrial septum intact. No shunt. Left atrial size was normal. MRI of the brain, which I have reviewed, shows no acute infarction. There is modest T2 and FLAIR hyperintensity consistent with chronic small vessel ischemic changes. 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 MRA of the head, no significant occlusion, stenosis or aneurysm. MRA of the neck, no significant stenosis or occlusion. LABORATORY DATA: Labs on admission, white count 9, H&H 14/47, and platelet count 276. PT 10.4 and PTT 26.1. Chemistry profile on admission entirely normal with the exception of a magnesium of 2.5. LDL 127 and triglycerides 155. Urinalysis notable for small amount of leukocyte esterase and 5-10 epithelial cells. PHYSICAL EXAMINATION: VITAL SIGNS: On admission, blood pressure was 180/100, pulse 81, respiratory rate 20, and oxygen saturation 97%. Currently, temperature 36.8, pulse 83, respiratory rate 18, blood pressure 123/80, and oxygen saturation 96%. GENERAL: The patient is awake and alert. There is normal speech and language and her affect is appropriate. She is oriented x3. There are no carotid bruits. HEART: No heart murmurs. Heart is regular rate and rhythm. LUNGS: Clear. ABDOMEN: Soft. NECK: Supple. There is no cervical tenderness. EXTREMITIES: Posterior tibial pulses are intact. No calf swelling or tenderness is noted. NEUROLOGIC: Pupils are equal, round, and reactive to light. There is a right cataract. There is normal castillo, motility, facial sensation and symmetry. Tongue is midline. Uvula elevates symmetrically. Motor: I did not appreciate any deformity of the arm. There is no atrophy or fasciculations. Strength appeared full. Bulk and tone are normal. No drift. Equal rapid alternating movements. She is hesitant to move the left leg due to pain, but strength appeared symmetric. Reflexes were symmetric. Toes were downgoing. Sensation is bilaterally symmetric to light touch, temperature and vibration. [id number]-[id number] and avgw-gl-[id number] were normal. IMPRESSION: Probable transient ischemic attack. Within the differential includes nerve compression related to positioning cervical radiculopathy. The patient denies any neck pain. Typically, cervical radicular process would not be painless nor as transient as this. The patient could have had a radial neuropathy, but does not describe the weakness as such. PLAN: Antiplatelet therapy with aspirin and Plavix. Provided there is no history of significant peptic ulcer disease, I would use them in combination for 3 months and then aspirin alone. Lipid lowering per primary care. The patient has prior intolerance. Recommend a CardioNet monitor as an outpatient. The patient should see myself postdischarge in the office. EVELINE
[2017-07-28] MEDS ORDERED: ASPEC81 PO (18:17)
[2017-07-28] MEDS ORDERED: ZTA10 PO (18:17)
[2017-07-28] MEDS ORDERED: PLV75 PO (18:17)
--- NOTE | 2017-07-28 18:22 | Discharge Instructions ---
Discharge Instructions Date of Service Jul 28, 2017. Admission Reason for Admission: Left Arm Weakness Discharge Discharge Diagnosis / Problem: TIA Discharge Goals Goal(s): Decrease discomfort, Improve function, Diagnostic testing, Therapeutic intervention Activity Recommendations Activity Limitations: resume your previous activity . Instructions / Follow-Up Instructions / Follow-Up Please follow-up with Dr. Liu - you will get a phone call with a date and time Please follow-up with Dr. Graham, neurology You will be on aspirin and Plavix for three months - then you will stop Plavix and continue Aspirin You will be started on Zetia for cholesterol Current Hospital Diet Patient's current hospital diet: AHA Diet (Heart Healthy) Discharge Diet Recommended Diet: AHA Diet (Heart Healthy) Pending Studies Studies pending at discharge: no Laboratory Results Hemoglobin A1c Test 07/27/17 12:30 Range/Units Estimated Average Glucose 120 mg/dl Hemoglobin A1c 5.8 H 4.5-5.6 % Lipid Panel Test 07/28/17 06:15 Range/Units Triglycerides Level 155 H 0-150 mg/dl Cholesterol Level 202 H 0-200 mg/dl HDL Cholesterol 44 mg/dl Cholesterol/HDL Ratio 4.6 LDL Cholesterol, Calculated 127 mg/dl Medical Emergencies . Who to Call and When: Medical Emergencies: If at any time you feel your situation is an emergency, please call 911 immediately. . Non-Emergent Contact Non-Emergency issues call your: Primary Care Provider, Neurologist . . "Provider Documentation" section prepared by Teto Sevilla. . VTE Core Measure Inpt VTE Proph given/why not?: Enoxaparin (Lovenox)SQ
--- NOTE | 2017-07-28 18:24 | Discharge Summary ---
Discharge Summary Date of Service Jul 28, 2017. Discharge Summary Admission Date: Jul 27, 2017 at 15:16 Discharge Date: Jul 28, 2017 Discharge Disposition: Home Principal Diagnosis: TIA Medication Reconciliation New Medications: Aspirin (Aspirin EC Low Dose) 81 Mg Ectab 81 MG PO QAM for 30 Days, #30 TABS Clopidogrel Bisulfate (Clopidogrel) 75 Mg Tab 75 MG PO QAM for 30 Days, #30 TAB 2 Refills Ezetimibe (Zetia) 10 Mg Tab 10 MG PO QAM for 30 Days, #30 TAB Continued Medications: Acetaminophen (Tylenol) 325 Mg Tab 325 MG PO UD PRN for Pain Cholecalciferol (Vitamin D3) 400 Inter.unit Tab 800 UNITS PO QAM Dicyclomine HCl (Dicyclomine HCl) 10 Mg Cap 10 MG PO AMPM Enteral Nutrition Formula (Ensure) Liq 1 CAN PO DAILY Estradiol Vaginal (Estrace) 0.1 Mg/Gm Cre 0.5 APPL PV 2XWK Gabapentin (Neurontin) 300 Mg Cap 300 MG PO HS Multiple Vitamins W/ Minerals (Centrum Silver) 1 Chw Chw 1 TAB PO DAILY Omeprazole (Prilosec) 20 Mg Capcr 20 MG PO DAILY Ranitidine (Zantac) 300 Mg Tab 300 MG PO HS, TAB Zoledronic Acid (Reclast) 5 Mg/100 Ml Inj 5 MG PO YEARLY Admission Information HPI (per Admitting provider): Patient is an 82yo F with a PMH of 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 She was in her normal state of health when she woke up this morning. When ambulating down the stairs for breakfast, she was not able to use L arm to burn out tender lace the railing. Describes a feeling of weakness, as well as numbness and a sensation of cold in the L arm, forearm and hand. Was able to place cane in other hand and ambulate downstairs without problem. Denies any dysphagia or difficulty eating breakfast. Contacted her PCP and was advised to come to the ED for further evaluation. Symptoms continued to improve and completed resolved within 4 hours of their start. States that her L arm still feels "funny" but denies any weakness, numbness or sensory deficit. Denies any confusion, headache , blurred vision, CP, SOB, new weakness in extremities. Patient endorses a chronic weakness/numbness in L leg 2/2 sciatica. No history of heart disease, arrhythmias, prior CVA, or history of DVT/PE. Currently lives alone in a house and ambulates with a cane. Physical Exam (per Admitting): General Appearance: WD/WN, no apparent distress Head: normocephalic, atraumatic Eyes: normal inspection, PERRL, EOMI, sclerae normal ENT: normal ENT inspection (hearing loss in R ear) Neck: supple, no adenopathy, thyroid normal, trachea midline Respiratory/Chest: chest non-tender, lungs clear, normal breath sounds, no respiratory distress, no accessory muscle use Cardiovascular: regular rate, rhythm, no JVD, no murmur, normal peripheral pulses Abdomen/GI: normal bowel sounds, non tender, soft, no organomegaly Back: normal inspection Extremities/Musculoskelatal: normal inspection, no calf tenderness, normal capillary refill, no pedal edema Neurologic/Psych: electro tech II-XII nml as tested, no motor/sensory deficits (5/5 MARLA in all four extremities. Cerebellar tests intact. No pronator drift. 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, GERD, IBS presents with L hand weakness L Hand Weakness Probably TIA Head CT negative MRI and MRA of head/neck negative the symptoms have resolved PT/OT ordered uses cane for ambulation at baseline likely a musculoskeletal weakness started aspirin 81mg daily statin intolerance noted: started Zetia d/c home with home health if okay with neurology Hypercholesterolemia total cholesterol > 200 no statins secondary to intolerance will start Zetia L sided sciatica continue Gabapentin DVT ppx SCDs initially to r/o hemorrhage now started on Lovenox FULL CODE Total time spent on discharge = 45 minutes This includes examination of the patient, discharge planning, medication reconciliation, and communication with other providers. Discharge Instructions Please follow-up with Dr. Liu - you will get a phone call with a date and time Please follow-up with Dr. Graham, neurology You will be on aspirin and Plavix for three months - then you will stop Plavix and continue Aspirin You will be started on Zetia for cholesterol
[2017-07-28] MEDS: GABAPENTIN 300 MG CAP PO SCH (20:36)
[2017-07-28] MEDS: RANITIDINE HCL 150 MG TAB PO SCH (20:36)
[2017-07-29] MEDS ORDERED: ASPIRIN 81 MG ECTAB PO SCH (09:00)
[2017-07-29] MEDS ORDERED: EZETIMIBE 10MG TAB PO SCH (09:00)
[2017-07-29] MEDS ORDERED: ENOXAPARIN 40 MG/0.4 ML SYR SQ SCH (09:00)
== END 2017-07-28 21:05 | disposition home or self-care (01) | DRG 69 ==
LOC: C.EDB 11:48 → C.MED 15:16 → ENRESERV 15:41
PROVIDERS: ADMIT Hospitalist; ATTEND Family Medicine
DX: G45.9 Transient cerebral ischemic attack, unspecified (principal); E78.00 Pure hypercholesterolemia, unspecified; M51.16 Intervertebral disc disorders with radiculopathy, lumbar region; K58.9 Irritable bowel syndrome, unspecified; K21.9 Gastro-esophageal reflux disease without esophagitis; M81.0 Age-related osteoporosis without current pathological fracture; Z87.310 Personal history of (healed) osteoporosis fracture; Z79.818 Long term (current) use of other agents affecting estrogen receptors and estrogen levels; Z79.83 Long term (current) use of bisphosphonates; Z79.899 Other long term (current) drug therapy; Z88.1 Allergy status to other antibiotic agents; Z88.2 Allergy status to sulfonamides; Z88.8 Allergy status to other drugs, medicaments and biological substances

== ENCOUNTER → 2018-02-23 | Outpatient (CLI) | payer BC ==
[~2018-02-23] MED LIST changes: +ASPEC81 PO; +BNT/10 PO; -BNT10 PO; -CHOLTAB3 PO; -ESCI10TA17 PO; +ESTCR PV; +GABA-113 PO; -LORA-741 PO; -MULT-506 PO; +MULTCHW PO; +NUTR-706 PO; +PLV75 PO; -PRMVC TOP; +VTMD400 PO; +ZTA10 PO; -[UNRECOGNIZED DRUG - CODE] PO
== END | disposition home or self-care (01) ==
LOC: C.PATHSPEC 16:52
PROVIDERS: ATTEND Dermatology
DX: L57.0 Actinic keratosis (principal)

== ENCOUNTER 2019-11-16 06:46 | Inpatient (IN) ==
[2019-11-16] MEDS ORDERED: SODIUM CHLORIDE 0.9% 500 ML IV SCH (07:00)
[2019-11-16 07:22] LABS: Appearance Urine Clear (Clear); Bilirubin Urine Negative (Negative); Blood Urine Negative (Negative); Color Urine Yellow; Glucose Urine UA Negative (Negative); Ketones Urine Negative (Negative); Leukocyte Esterase Urine Negative (Negative); Nitrite Urine Negative (Negative); Protein Urine Negative (Negative); Specific Gravity Urine 1.015 (1.000-1.030); Urobilinogen Urine Negative (Negative)
--- NOTE | 2019-11-16 07:26 | Emergency Department Note ---
Entered by Cheikh Garcia acting as a scribe for Randolph Muñoz MD History of Present Illness General Chief complaint: Weakness Stated complaint: FALL Time Seen by Provider: 11/16/19 06:52 Source: patient History of Present Illness Provider complaint: Weakness Onset (ago): hour(s) (This morning) Location: head Pain Consistency: + constant Maximum Pain Intensity: 2 Current Pain Intensity: 2 Exacerbated By: + none Associated symptoms: + denies other symptoms (Diarrhea, LOC) and + other (Shaky ); no nausea/vomiting The patient is an 84 year old female who presents to the Emergency Room with complaints of constant generalized weakness that started this morning. The patient reports that she woke up and tried to get out of bed when she became dizzy and fell. The patient denies any injury, noting she only is weak and shaky. The patient also endorses increased urinary frequency but denies any other urinary symptoms. The patient states she was only on the ground for about 15 minutes before help arrived because she was able to use her LifeAlert. The patient is on a blood thinner but denies any headache or loss of consciousness. The patient also denies any vomiting, diarrhea, chest pain, shortness of breath, or loss of appetite. The patient adds that she does live home alone but she has a behavioral health care coordinator come twice a week. Home Medications Home Medications Medication Instructions Recorded Confirmed Type aspirin [Aspirin Low Dose] 81 mg PO DAILY 11/16/19 11/16/19 History gabapentin 200 mg PO HS 11/16/19 11/16/19 History metoprolol succinate 12.5 mg PO DAILY 11/16/19 11/16/19 History wcgopkqo-fth-XY-lycopen-lutein 1 tab PO DAILY 11/16/19 11/16/19 History [Centrum Silver] omeprazole 20 mg PO DAILY 11/16/19 11/16/19 History warfarin 2.5 mg PO SUMOTUWEFRSA@1600 11/16/19 11/16/19 History warfarin 5 mg PO TH@1600 11/16/19 11/16/19 History Allergies Allergy/AdvReac Type Severity Reaction Status Date / Time Sulfa (Sulfonamide Allergy Mild rash Verified 11/16/19 07:28 Antibiotics) Cephalosporins Allergy Unknown KELFEX Verified 11/16/19 07:28 Macrolide Antibiotics Allergy Unknown Verified 11/16/19 07:28 niacin Allergy Unknown Verified 11/16/19 07:28 gabapentin AdvReac Intermediate unknown Verified 11/16/19 07:28 risedronate sodium AdvReac Intermediate unknown Verified 11/16/19 07:28 HMG-CoA-R Inhibitors Allergy Unknown CRESTOR Uncoded 11/16/19 07:28 Past Med/Surg History Medical History GERD (gastroesophageal reflux disease) (Chronic) History of TIA (transient ischemic attack) (Chronic) Paroxysmal atrial fibrillation (Chronic) Stroke-like symptoms (Inactive) Surgical History History of appendectomy (Chronic) Family History Other Family history non-contributory Social History Communication Ability: Effective Beliefs That Will Affect Care: None marital status: / Current Living Situation: Alone Feels Safe at Home: Yes Safety Concerns: Feels Safe At This Time Smoking Status: Never smoker Do You Dip or Chew Tobacco: No ; Second Hand Exposure: No ; Tobacco Cessation Education Requested by Patient: No Hx Alcohol Use: No Hx Substance Use: No Review of Systems See HPI for pertinent positives & negatives. and A total of 10 systems reviewed and were otherwise negative Physical Exam Vital Signs Vital Signs - 24 hr 11/16/19 06:52 11/16/19 07:17 11/16/19 07:19 Temperature 37.6 C H Temperature Source Oral Pulse Rate - Lying Pulse Rate - Sitting Pulse Rate - Standing Pulse Rate 93 H Pulse Rate [Right] 94 H Pulse Rhythm Regular Pulse Strength Normal Respiratory Rate 16 36 H Respiratory Effort / Characteristics Non-Labored Respiratory Depth Normal Respiratory Pattern Regular Blood Pressure - Lying Blood Pressure - Sitting Blood Pressure- Standing Blood Pressure 145/68 H Blood Pressure [Right Arm] 150/76 H Blood Pressure Mean 93 Blood Pressure Mean [Right Arm] 100 Blood Pressure Position Lying Pulse Oximetry 94 93 Oxygen Delivery Method Room Air Room Air Room Air Sepsis Recent Fever Within 48 Hours No Sepsis New/Unexplained Change in Mental Status No Sepsis Action Taken by Nursing No Action Required 11/16/19 07:40 11/16/19 08:30 Temperature Temperature Source Pulse Rate - Lying 89 Pulse Rate - Sitting 102 H Pulse Rate - Standing 114 H Pulse Rate Pulse Rate [Right] 80 Pulse Rhythm Pulse Strength Respiratory Rate 29 H Respiratory Effort / Characteristics Non-Labored Respiratory Depth Normal Respiratory Pattern Blood Pressure - Lying 108/68 Blood Pressure - Sitting 135/83 Blood Pressure- Standing 101/70 Blood Pressure Blood Pressure [Right Arm] 137/65 Blood Pressure Mean Blood Pressure Mean [Right Arm] 89 Blood Pressure Position Pulse Oximetry 92 Oxygen Delivery Method Room Air Sepsis Recent Fever Within 48 Hours Sepsis New/Unexplained Change in Mental Status Sepsis Action Taken by Nursing GENERAL: Patient is in no acute distress. HEENT: No acute trauma, normocephalic atraumatic, mucous membranes moist, no nasal congestion, no scleral icterus. NECK: No stridor, no adenopathy, no meningismus, trachea is midline. LUNGS: Few crackles at both bases, equal breath sounds, no respiratory distress, no wheezing. HEART: Without murmurs gallops or rubs, regular rate and rhythm. ABDOMEN: Soft, nontender, bowel sounds positive, no hernias, no peritonitis. EXTREMITIES: No cyanosis or edema, full range of motion of all the joints without pain or difficulty, no signs for acute trauma. NEUROLOGIC: Oriented x 3, no acute motor or sensory deficits, no focal weakness. No cerebellar deficits. No one sided weakness. SKIN: No rash, no jaundice, no diaphoresis. Course Course 0652: Past medical records reviewed. The patient was evaluated in room B04B, and a complete history and physical examination were performed. 0809: I reevaluated the patient and updated her on test results. We also discussed the treatment plan and she is agreeable. 0812: I spoke to Dr. Red De La Cruz about the patient's case. He agreed to accept the patient for further evaluation. Consultations Consultation #1: I spoke to Dr. Red De La Cruz about the patient's case. He agreed to accept the patient for further evaluation. Time: 08:12 Administered Medications Aspirin (Ecotrin Ectab) 81 mg PO DAILY [facility] Stop: 12/16/19 12:14 Last Admin: 11/16/19 12:45 Dose: 81 mg Documented by: [id number] Doxycycline Hyclate 100 mg/ (Dextrose) 110 mls @ 50 mls/hr IV BID [facility]; Protocol Stop: 11/23/19 12:14 Last Admin: 11/16/19 12:45 Dose: 50 mls/hr Documented by: [id number] Sodium Chloride (Nss 1000ml) 1,000 mls @ 100 mls/hr IV .Q10H JOSH Stop: 12/16/19 13:44 Last Admin: 11/16/19 13:56 Dose: 100 mls/hr Documented by: [id number] Metoprolol Succinate (Toprol Xl) 12.5 mg PO DAILY JOSH Stop: 12/16/19 12:14 Last Admin: 11/16/19 12:45 Dose: 12.5 mg Documented by: [id number] Discontinued Medications Sodium Chloride (Nss) 500 mls @ 999 mls/hr IV .Q31M JOSH Stop: 11/16/19 07:30 Last Infusion: 11/16/19 08:33 Dose: 0 mls/hr Documented by: [id number] Admin: 11/16/19 07:46 Dose: 999 mls/hr Documented by: [id number] Piperacillin Sod/Tazobactam Sod (Zosyn) 4.5 gm in 120 mls @ 240 mls/hr IV NOW ONE Stop: 11/16/19 08:19 Last Infusion: 11/16/19 08:42 Dose: 0 mls/hr Documented by: [id number] Admin: 11/16/19 08:04 Dose: 240 mls/hr Documented by: [id number] Sodium Chloride (Nss 1000ml) 500 mls @ 999 mls/hr IV .Q31M ONE Stop: 11/16/19 14:24 Last Admin: 11/16/19 14:01 Dose: 999 mls/hr Documented by: [id number] Medical Decision Making Differential Diagnosis Differential Diagnosis includes: Stroke, dehydration, UTI, anemia, electrolyte imbalance, orthostasis, and debilitation, amongst others. Medical Records Attestation: I reviewed the patient's medical records. Home Medications Current Medication List: was personally reviewed by me Laboratory Data Attestation: I reviewed the patient's lab results. Result diagrams: 11/16/19 07:26 11/16/19 07:26 Lab Results 11/16/19 11/16/19 11/16/19 Range/Units 07:10 07:26 07:26 WBC (4.8-10.8) K/uL RBC (4.2-5.4) M/uL Hgb (12.0-16.0) g/dL Hct (37-47) % MCV (80-100) fL MCH (25-34) pg MCHC (32-36) g/dL RDW Std Deviation (36.4-46.3) fL RDW Coeff of Lobo (11.5-14.5) % Plt Count (130-400) K/uL MPV (7.4-10.4) fL Immature Gran % (Auto) % Neut % (Auto) % Lymph % (Auto) % Armstrong % (Auto) % Eos % (Auto) % Baso % (Auto) % Immature Gran # (Auto) (0.00-0.02) K/uL Neut # (Auto) (1.4-6.5) K/uL Lymph # (Auto) (1.2-3.4) K/uL Armstrong # (Auto) (0.11-0.59) K/uL Eos # (Auto) (0-0.5) K/uL Baso # (Auto) (0-0.2) K/uL PT 35.0 H (9.0-12.0) Seconds INR 3.8 H (0.9-1.1) APTT 38.2 H (21.0-31.0) Seconds PTT Ratio 1.4 Sodium (136-145) mmol/L Potassium (3.5-5.1) mmol/L Chloride (98-107) mmol/L Carbon Dioxide (21-32) mmol/L Anion Gap (3-11) BUN (7-18) mg/dl Creatinine (0.6-1.2) mg/dl Est Cr Clr Drug Dosing ml/min Est GFR ( Amer) Est GFR (Non-Af Amer) BUN/Creatinine Ratio (10-20) Glucose (70-99) mg/dl Lactate 2.4 H* (0.4-2.0) mmol/L Calcium (8.5-10.1) mg/dl Magnesium (1.8-2.4) mg/dl Total Bilirubin (0.2-1) mg/dl AST (15-37) U/L ALT (12-78) U/L Alkaline Phosphatase (45-117) U/L Troponin I (0-0.045) ng/ml Total Protein (6.4-8.2) gm/dl Albumin (3.4-5.0) gm/dl Globulin (2.5-4.0) gm/dl Albumin/Globulin Ratio (0.9-2) TSH (0.300-4.500) uIu/ml Urine Color Yellow Urine Appearance Clear (Clear) Urine pH 8.0 H (4.5-7.5) Ur Specific Dumas 1.015 (1.000-1.030) Urine Protein Negative (Negative) Urine Glucose (UA) Negative (Negative) Urine Ketones Negative (Negative) Urine Blood Negative (Negative) Urine Nitrite Negative (Negative) Urine Bilirubin Negative (Negative) Urine Urobilinogen Negative (Negative) Ur Leukocyte Esterase Negative (Negative) 11/16/19 11/16/19 Range/Units 07:26 07:26 WBC 13.07 H (4.8-10.8) K/uL RBC 4.88 (4.2-5.4) M/uL Hgb 15.0 (12.0-16.0) g/dL Hct 45.4 (37-47) % MCV 93.0 (80-100) fL MCH 30.7 (25-34) pg MCHC 33.0 (32-36) g/dL RDW Std Deviation 49.7 H (36.4-46.3) fL RDW Coeff of Lobo 14.5 (11.5-14.5) % Plt Count 219 (130-400) K/uL MPV 9.9 (7.4-10.4) fL Immature Gran % (Auto) 0.2 % Neut % (Auto) 81.1 % Lymph % (Auto) 9.1 % Armstrong % (Auto) 9.3 % Eos % (Auto) 0.2 % Baso % (Auto) 0.1 % Immature Gran # (Auto) 0.03 H (0.00-0.02) K/uL Neut # (Auto) 10.61 H (1.4-6.5) K/uL Lymph # (Auto) 1.19 L (1.2-3.4) K/uL Armstrong # (Auto) 1.21 H (0.11-0.59) K/uL Eos # (Auto) 0.02 (0-0.5) K/uL Baso # (Auto) 0.01 (0-0.2) K/uL PT (9.0-12.0) Seconds INR (0.9-1.1) APTT (21.0-31.0) Seconds PTT Ratio Sodium 138 (136-145) mmol/L Potassium 4.1 (3.5-5.1) mmol/L Chloride 107 (98-107) mmol/L Carbon Dioxide 27 (21-32) mmol/L Anion Gap 4.0 (3-11) BUN 14 (7-18) mg/dl Creatinine 1.07 (0.6-1.2) mg/dl Est Cr Clr Drug Dosing 36.6 ml/min Est GFR ( Amer) 56.0 Est GFR (Non-Af Amer) 48.3 BUN/Creatinine Ratio 12.8 (10-20) Glucose 107 H (70-99) mg/dl Lactate (0.4-2.0) mmol/L Calcium 8.7 (8.5-10.1) mg/dl Magnesium 2.0 (1.8-2.4) mg/dl Total Bilirubin 2.1 H (0.2-1) mg/dl AST 443 H (15-37) U/L ALT 177 H (12-78) U/L Alkaline Phosphatase 121 H (45-117) U/L Troponin I < 0.015 (0-0.045) ng/ml Total Protein 7.6 (6.4-8.2) gm/dl Albumin 3.0 L (3.4-5.0) gm/dl Globulin 4.6 H (2.5-4.0) gm/dl Albumin/Globulin Ratio 0.7 L (0.9-2) TSH 2.550 (0.300-4.500) uIu/ml Urine Color Urine Appearance (Clear) Urine pH (4.5-7.5) Ur Specific Dumas (1.000-1.030) Urine Protein (Negative) Urine Glucose (UA) (Negative) Urine Ketones (Negative) Urine Blood (Negative) Urine Nitrite (Negative) Urine Bilirubin (Negative) Urine Urobilinogen (Negative) Ur Leukocyte Esterase (Negative) Imaging Data Radiologist's Impression: Radiology results as stated below per my review and the radiologist's interpretation: XR chest 1V portable HISTORY: weakness COMPARISON: Chest 12/13/2008. FINDINGS: No pneumothorax. No pleural effusions. The heart is normal in size. Patchy left basilar density and mild diffuse interstitial thickening. This has progressed. There are low lung volumes. IMPRESSION: 1. Patchy left basilar airspace opacity. This could represent atelectasis or pneumonia. 2. Low lung volumes with mild diffuse interstitial thickening. This could be chronic or represent mild congestive change. ACT 112: Negative or not required by law. Electronically signed by: Chris Schreiber M.D. 11/16/2019 7:[address] head/brain wo con CLINICAL HISTORY: 84 years-old Female presenting with weakness. TECHNIQUE: Multidetector CT imaging of the head was performed without the use of intravenous contrast. IV contrast: None. One or more dose lowering techniques were used consistent with the principles of ALARA (as low as reasonably achievable), including automatic exposure control, mA or kV adjustment to individual patient size, and/or use of iterative reconstruction. COMPARISON: 07/27/2017. CT DOSE (mGy.cm): The estimated cumulative dose is 691.05 mGy.cm. FINDINGS: Inker topogram: Unremarkable. Proportional ventricular and sulcal prominence, likely age-related parenchymal volume loss. Incidental note made of a cavum septi pellucidi et vergae. No hemorrhage. Periventricular and subcortical white matter hypoattenuation, nonspecific but likely indicative of chronic small vessel ischemic change. No acute territorial infarct. No mass effect or midline shift. No extra-axial fluid collection. Paranasal sinuses and mastoid air cells clear. Calvarium intact. IMPRESSION: 1. Chronic small vessel ischemic change. No acute intracranial abnormality. ACT 112: Negative or not required by law. Electronically signed by: Zak Koorma M.D. 11/16/2019 7:41 AM ECG Data Attestation: I personally reviewed and interpreted this ECG as follows: Indication: + weakness Rate (beats per minute): 92 Rhythm: + normal sinus (with artifact present) ECG ST segments: no ST elevation ECG Findings: no PVCs Blood Pressure Blood Pressure Findings: Elevated blood pressure Blood Pressure Disposition: further management by hospitalist [facility] Narrative There is a mild leukocytosis, this could be consistent with infection. No concerning anemia. INR is somewhat over the therapeutic window at 3.8. There is no significant electrolyte abnormality or kidney failure. Lactic acid level is mildly elevated 2.4, this is consistent with dehydration or possibly infection. Liver enzymes were elevated, the cause is unclear. The patient appeared to have normal thyroid function. EKG shows a sinus rhythm, no acute ischemia. Cardiac enzyme testing x1 is not consistent with acute cardiac injury . Urinalysis does not show evidence for infection. Brain CT shows no acute bleed or mass-effect. Chest film does show left lung pneumonia. The patient presents with weakness and shakiness. She collapsed to the ground this morning and had to call EMS. She does live alone. The patient requires a hospital stay for her weakness, her pneumonia and elevated liver enzymes. Further work-up and care is required. I spoke to the patient, I talked with case management. The on-call hospitalist was consulted. Of note, the patient was given a 500 cc saline bolus while here in the ED. She received 4.5 g of IV Zosyn. Impression & Plan Weakness, Pneumonia, Fall, Leukocytosis, Elevated liver enzymes Discharge Plan Visit Data *Final* Discharge Date/Time: 11/16/19 10:09 Chief Complaint: Weakness Stated Complaint: FALL ED Provider: Randolph Muñoz Discharge Problem: Weakness, Pneumonia, Fall, Leukocytosis, Elevated liver enzymes Patient Disposition: Admitted As Inpatient Discharge Instructions Interventions: ED Discharge Assessment Last Done: 11/16/19 10:09 Discharge Problem: Pneumonia Qualifiers: Pneumonia type: due to unspecified organism Laterality: left Lung location: lower lobe of lung Qualified Code(s): J18.9 - Pneumonia, unspecified organism Fall Qualifiers: Encounter type: initial encounter Qualified Code(s): W19.XXXA - Unspecified fall, initial encounter The scribe's documentation has been prepared under my direction and personally reviewed by me in its entirety. I confirm that the note above accurately reflects all work, treatment, procedures, and medical decision making performed by me.
[2019-11-16 07:38] LABS: Basophils # (auto) 0.01 K/uL (0-0.2); Basophils % (auto) 0.1 %; Eosinophils # (auto) 0.02 K/uL (0-0.5); Eosinophils % (auto) 0.2 %; Hematocrit (blood only) 45.4 % (37-47); Immature Granulocytes # (auto) 0.03 K/uL (0.00-0.02); Immature Granulocytes % (auto) 0.2 %; Lymphocytes # (auto) 1.19 K/uL (1.2-3.4); Lymphocytes % (auto) 9.1 %; Mean Corpuscular Hemoglobin 30.7 pg (25-34); Mean Platelet Volume 9.9 fL (7.4-10.4); Monocytes # (auto) 1.21 K/uL (0.11-0.59); Monocytes % (auto) 9.3 %; Neutrophils # (auto) 10.61 K/uL (1.4-6.5); Neutrophils % (auto) 81.1 %; Platelet Count 219 K/uL (130-400); RDW Coefficient of Variation 14.5 % (11.5-14.5); RDW Standard Deviation 49.7 fL (36.4-46.3); Red Blood Count 4.88 M/uL (4.2-5.4); White Blood Count 13.07 K/uL (4.8-10.8)
--- NOTE | 2019-11-16 07:43 | CT Scan Report ---
CT head/brain wo con CLINICAL HISTORY: 84 years-old Female presenting with weakness. TECHNIQUE: Multidetector CT imaging of the head was performed without the use of intravenous contrast . IV contrast: None. One or more dose lowering techniques were used consistent with the principles of ALARA (as low as reasonably achievable), including automatic exposure control, mA or kV adjustment t o individual patient size, and/or use of iterative reconstruction. COMPARISON: 07/27/2017. CT DOSE (mGy.cm): The estimated cumulative dose is 691.05 mGy.cm. FINDINGS: Network Cabler topogram: Unremarkable. Proportional ventricular and sulcal prominence, likely age-related parenchymal volume loss. Incidenta l note made of a cavum septi pellucidi et vergae. No hemorrhage. Periventricular and subcortical whit e matter hypoattenuation, nonspecific but likely indicative of chronic small vessel ischemic change. No acute territorial infarct. No mass effect or midline shift. No extra-axial fluid collection. Paran aicha sinuses and mastoid air cells clear. Calvarium intact. IMPRESSION: 1. Chronic small vessel ischemic change. No acute intracranial abnormality. ACT 112: Negative or not required by law. Electronically signed by: Zak Koroma M.D. 11/16/2019 7:41 AM
--- NOTE | 2019-11-16 07:48 | XRay Report ---
XR chest 1V portable HISTORY: weakness COMPARISON: Chest 12/13/2008. FINDINGS: No pneumothorax. No pleural effusions. The heart is normal in size. Patchy left basilar den sity and mild diffuse interstitial thickening. This has progressed. There are low lung volumes. IMPRESSION: 1. Patchy left basilar airspace opacity. This could represent atelectasis or pneumonia. 2. Low lung volumes with mild diffuse interstitial thickening. This could be chronic or represent mil d congestive change. ACT 112: Negative or not required by law. Electronically signed by: Chris Schreiber M.D. 11/16/2019 7:47 AM
[2019-11-16] MEDS ORDERED: PIPERACILL/TAZOBAC CONSULT ACTIVE PRN (07:50)
[2019-11-16] MEDS ORDERED: PIPERACILLIN/TAZOBACTAM 4.5 GM/120 ML BAG IV ONE (07:50)
--- OUTSIDE RECORDS SUMMARY | 2019-11-16 07:53 | External Medical Summary | Continuity of Care Document ---
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 Refills: 0 Aspirin 81 MG TABS; TAKE 1 TABLET DAILY. , M.D. Refills: 5 Tylenol 325 MG Oral Tablet , M.D. Refills: 0 Vitamin E 400 UNIT Oral Capsule , M.D. Refills: 0 Ensure Oral Liquid; USE DIRECTED. , M.D. 237 ML Bottle Refills: 0 Estrace 0.1 MG/GM Vaginal Cream; 1/2 applicator two times sabine solis M.D. 42.5 GM Tube Refills: 0 Gabapentin 300 MG Oral Capsule; TAKE 1 CAPSULE AT BEDTIME. , M.DBob Quantity: 90 Refills: 3 raNITIdine HCl - 300 MG Oral Tablet; TAKE 1 TABLET AT BEDTIM E. , M.D. Refills: 0 Reclast SOLN; every other year , M.D. Refills: 0 Warfarin Sodium TABS , M.D. Refills: 0 Metoprolol Succinate ER 25 MG Oral Table t Extended Release 24 Hour; TAKE 1/2 TABLET DAILY. , M.D. 100 Tablet Bottle Refills: 3 Omeprazole 20 MG Oral Capsule Delayed Release , M.D. Refills: 0 Procedures Procedures not documented Immunizations Immunizations not documented Social History - Smoking Status Never smoker Plan of Treatment Planned Observations Planned Goals not documented Results No Known Results Results not documented Encounters Appointment; Kylee Roland M.D. 23-Feb-2018 10:00 Encounter Diagnosis: Problem not documented
--- OUTSIDE RECORDS SUMMARY | 2019-11-16 07:53 | External Medical Summary | Continuity of Care Document ---
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 Refills: 0 Centrum Silver TABS , M.D. Refills: 0 Aspirin 81 MG TABS; TAKE 1 TABLET DAILY. , M.D. Refills: 5 Tylenol 325 MG Oral Tablet , M.DBob Refills: 0 Vitamin E 400 UNIT Oral Capsule , M.D. Refills: 0 Ensure Oral Liquid; USE DIRECTED. , M.DBob 237 ML Bottle Refills: 0 Estrace 0.1 MG/GM Vaginal Cream; 1/2 applicator two times sabine solis M.D. 42.5 GM Tube Refills: 0 Gabapentin 300 MG Oral Capsule; TAKE 1 CAPSULE AT BEDTIME. , M.DBob Quantity: 90 Refills: 3 raNITIdine HCl - 300 MG Oral Tablet; TAKE 1 TABLET AT BEDTIM E. M.D. Refills: 0 Reclast SOLN; every other year , M.D. Refills: 0 Warfarin Sodium Feliz GOYAL Refills: 0 Metoprolol Succinate ER 25 MG Oral Table t Extended Release 24 Hour; TAKE 1/2 TABLET DAILY. Feliz 100 Tablet Bottle Refills: 3 Procedures Procedures not documented Immunizations Immunizations not documented Social History - Smoking Status Never smoker Plan of Treatment Planned Observations Planned Goals not documented Results No Known Results Results not documented Encounters Appointment; Kylee Roland M.D. 23-Feb-2018 10:00 Encounter Diagnosis: Problem not documented
[2019-11-16 07:56] LABS: Partial Thromboplastin Ratio 1.4; Partial Thromboplastin Time 38.2 Seconds (21.0-31.0)
[2019-11-16 08:01] LABS: Alanine Aminotransferase 177 U/L (12-78); Aspartate Aminotransferase 443 U/L (15-37); BUN Creatinine Ratio 12.8 (10-20); Blood Urea Nitrogen 14 mg/dl (7-18); Calcium 8.7 mg/dl (8.5-10.1); Carbon Dioxide 27 mmol/L (21-32); Chloride 107 mmol/L (98-107); Creatinine Clr Calc Pharmacy 36.6 ml/min; Est GFR (Non-African American) 48.3; Glucose 107 mg/dl (70-99); Potassium 4.1 mmol/L (3.5-5.1); Sodium 138 mmol/L (136-145)
[2019-11-16 08:12] LABS: Albumin Globulin Ratio 0.7 (0.9-2); Alkaline Phosphatase 121 U/L (45-117); Bilirubin,Total 2.1 mg/dl (0.2-1); Globulin 4.6 gm/dl (2.5-4.0); Total Protein 7.6 gm/dl (6.4-8.2); Troponin I < 0.015 ng/ml (0-0.045)
[2019-11-16 08:16] LABS: INR 3.8 (0.9-1.1)
--- NOTE | 2019-11-16 09:08 | History & Physical Report ---
Date of Service November 16, 2019 Assessment & Plan (1) Sepsis: (2) Pneumonia: This is an 84yo F with a PMH of paroxysmal A Fib, GERD and other medical problems listed below who presents with generalized weakness and fall this morning and was found to have sepsis 2/2 PNA. -Meets sepsis criteria per CMS guidelines with heart rate of 93 and respiration rate of 36 initially, leukocytosis of 13 and lactate of 2.4 -Repeat lactic acid increased at 4.8. Has received NSS 500 fluids total. Will be given another 500 NSS bolus and maintenance fluids -Procalcitonin, Flu PCR, CK and repeat lactic acid ordered -CXR with patchy left basilar airspace opacity. This could represent atelectasis or pneumonia -Treating empirically with Zosyn. Added doxycycline for atypical coverage. MRSA nasal swab pending (3) Weakness: In the setting of infection, had fall this morning -CT head without acute intracranial abnormality -PT/OT evaluations pending -Patient lives alone. Case mgmt consulted (4) Paroxysmal atrial fibrillation: Given missed morning Toprol dose -Supratherapeutic INR of 3.8 on coumadin. Will hold today's dose -Daily INR (5) Elevated liver enzymes: Tbili of 2.1, AST of 443, ALT of 177, alk phos of 121 -No abdominal pain, or nausea/vomiting. Eating normally -Most recent outpatient liver function tests wnl at 2016 -Considering liver ultrasound (6) GERD (gastroesophageal reflux disease): Continue PPI DVT Ppx: Continue coumadin Code status: FULL per discussion PCP: Noe Dispo: Admitted to [facility]. Plan to return home once medically stable. Patient seen in collaboration with Dr. Moon. Please see addendum. History of Present Illness Chief Complaint: weakness Primary Care Provider: Caroline Liu MD This is an 84yo F with a PMH of paroxysmal A Fib, GERD and other medical problems listed below who presents with generalized weakness and fall this morning. Patient states she has had a runny nose and dry cough over the past week but no other health changes. But extremely weak when she got out of bed today and fell while walking to the kitchen. Denies any head trauma or loss of consciousness. Was unable to get up on her own or reach her cell phone, so she used her [employer] necklace. Denies any fever, chills, lightheadedness, visual changes, chest pain, palpitations, wheezing, hemoptysis, nausea, vomiting, abdominal pain, dysuria, diarrhea constipation. Denies any active bleeding. Patient lives alone and has home bilingual instructor come twice a week. Allergies Allergy/AdvReac Type Severity Reaction Status Date / Time Sulfa (Sulfonamide Allergy Mild rash Verified 11/16/19 07:28 Antibiotics) Cephalosporins Allergy Unknown KELFEX Verified 11/16/19 07:28 Macrolide Antibiotics Allergy Unknown Verified 11/16/19 07:28 niacin Allergy Unknown Verified 11/16/19 07:28 gabapentin AdvReac Intermediate unknown Verified 11/16/19 07:28 risedronate sodium AdvReac Intermediate unknown Verified 11/16/19 07:28 HMG-CoA-R Inhibitors Allergy Unknown CRESTOR Uncoded 11/16/19 07:28 Home Medications Home Medications Medication Instructions Recorded Confirmed Type aspirin [Aspirin Low Dose] 81 mg PO DAILY 11/16/19 11/16/19 History gabapentin 200 mg PO HS 11/16/19 11/16/19 History metoprolol succinate 12.5 mg PO DAILY 11/16/19 11/16/19 History zjbchcnu-ojs-XG-lycopen-lutein 1 tab PO DAILY 11/16/19 11/16/19 History [Centrum Silver] omeprazole 20 mg PO DAILY 11/16/19 11/16/19 History warfarin 2.5 mg PO SUMOTUWEFRSA@1600 11/16/19 11/16/19 History warfarin 5 mg PO TH@1600 11/16/19 11/16/19 History Past Med/Surg History Medical History GERD (gastroesophageal reflux disease) (Chronic) History of TIA (transient ischemic attack) (Chronic) Paroxysmal atrial fibrillation (Chronic) Stroke-like symptoms (Inactive) Surgical History History of appendectomy (Chronic) Family History Other Family history non-contributory Social History Communication Ability: Effective Beliefs That Will Affect Care: None marital status: / Current Living Situation: Alone Feels Safe at Home: Yes Safety Concerns: Feels Safe At This Time Smoking Status: Never smoker Do You Dip or Chew Tobacco: No ; Second Hand Exposure: No ; Tobacco Cessation Education Requested by Patient: No Hx Alcohol Use: No Hx Substance Use: No Review of Systems Review of Systems: At least ten systems reviewed and negative except as noted in the HPI. Physical Exam Physical Exam: General Appearance: WD/WN, vitals as above, NAD, lying in bed, pleasant, conversing easily Head: normocephalic, atraumatic Eyes: normal inspection, PERRL, conjunctivae normal, anicteric sclerae ENT: external ear and nose normal, oropharynx normal Neck: trachea midline, no thyromegaly normal visual inspection Respiratory: normal respiratory effort, bibasilar crackles, no wheeze or rhonchi.No accessory muscle use Cardiovascular: regular rate, rhythm, no murmur, normal peripheral pulses. Vessels: no JVD or carotid bruit Chest: normal inspection of chest Abdomen/GI: normal bowel sounds, soft, nontender, no hepatosplenomegaly Extremities/Musculoskelatal: no cyanosis or clubbing, extremities motor strength 5/5 Neurologic: PERRL, EOMI, accommodation nl, no face palsy, no dysarthria, CN's II-XI intact bilaterally and moves all extremities Psychiatric: A+Ox3, euthymic affect Skin: no rashes, normal color, warm/dry Results & Data Vital Signs (Past 12 Hours) Vital Signs Temp Pulse Pulse Resp BP BP Pulse Ox 11/16/19 08:30 80 29 H 137/65 92 11/16/19 07:19 94 H 36 H 150/76 H 93 11/16/19 06:52 37.6 C H 93 H 16 145/68 H 94 Laboratory Results Short CBC 11/16/19 Range/Units 07:26 WBC 13.07 H (4.8-10.8) K/uL Hgb 15.0 (12.0-16.0) g/dL Hct 45.4 (37-47) % Plt Count 219 (130-400) K/uL BMP 11/16/19 07:26 Sodium 138 Potassium 4.1 Chloride 107 Carbon Dioxide 27 BUN 14 Creatinine 1.07 Glucose 107 H Calcium 8.7 Cardiac Enzymes 11/16/19 Range/Units 07:26 Troponin I < 0.015 (0-0.045) ng/ml Liver Function 11/16/19 Range/Units 07:26 Total Bilirubin 2.1 H (0.2-1) mg/dl AST 443 H (15-37) U/L ALT 177 H (12-78) U/L Alkaline Phosphatase 121 H (45-117) U/L Albumin 3.0 L (3.4-5.0) gm/dl Urine 11/16/19 Range/Units 07:10 Urine Color Yellow Urine Appearance Clear (Clear) Urine pH 8.0 H (4.5-7.5) Ur Specific [place] 1.015 (1.000-1.030) Urine Protein Negative (Negative) Urine Glucose (UA) Negative (Negative) Diagnostic Findings Head CT: IMPRESSION: 1. Chronic small vessel ischemic change. No acute intracranial abnormality. CXR: IMPRESSION: 1. Patchy left basilar airspace opacity. This could represent atelectasis or pneumonia. 2. Low lung volumes with mild diffuse interstitial thickening. This could be chronic or represent mild congestive change. Code Status & VTE Plan VTE Prophylaxis Plan VTE Prophylaxis will be ordered: Yes Supervising Physician Co-Signing Physician Notes Attending Addendum: care coordinated with MAINE Puente please refer to her notes for full details, I agree with her notes patient seen and examined, records reviewed by myself as well on exam, patient seen resting in bed appears weak but not in distress States that she feels improved compared to admission Has occasional cough No chest pain no other symptoms VS noted and reviewed oriented x 3 , not in distress, speaks in sentences with no effort nor accessory muscle use normal rate, regular rhythm, no murmurs Positive rales at the left lower lobe no wheezing non distended, soft, nontender no bipedal edema, erythema, warmth no neuro deficits WBC 13 Hg 15 Crea 1.0 Chest x-ray: Left lower lobe infiltrate ASSESSMENT AND PLAN> Pneumonia --Follow-up cultures Continue Zosyn plus doxy Lactic acid --Continue IV fluids, follow-up lactic acid p.m. Elevated INR --No signs of bleeding Hold Coumadin Other diagnosis plan of care per MAINE Puente's notes other diagnoses and plan of care as per [] Marc Moon MD (1) Pneumonia Laterality: left Lung location: lower lobe of lung Pneumonia type: due to unspecified organism Qualified Code(s): J18.9 - Pneumonia, unspecified organism
[2019-11-16] MEDS ORDERED: POLYETHYLENE (MIRALAX) 17 GM PACK PO PRN (10:40)
[2019-11-16] MEDS: METOPROLOL SUCC 25MG EXT REL TAB PO SCH (12:45)
[2019-11-16] MEDS: DOXYCYCLINE HYCLATE 100 MG in DEXTROSE 5% 100 ML IV SCH ×2 (12:45→20:48)
[2019-11-16] MEDS: ASPIRIN 81 MG ECTAB PO SCH (12:45)
[2019-11-16] MEDS ORDERED: SODIUM CHLORIDE 0.9% 1000ML 500 ML IV ONE (13:54)
[2019-11-16] MEDS: SODIUM CHLORIDE 0.9% 1000ML 1,000 ML IV SCH ×2 (13:56→22:49)
[2019-11-16 14:58] LABS: Influenza A virus by PCR Neg for Influ A (Neg); Influenza B virus by PCR Neg for Influ B (Neg)
[2019-11-16] MEDS: PIPERACILLIN/TAZOBACTAM 3.375 GM in DEXTROSE 5% 100 ML IV SCH ×2 (15:00→22:49)
[2019-11-16 16:11] LABS: Bilirubin Direct 1.2 mg/dl (0-0.2)
[2019-11-16] MEDS: ACETAMINOPHEN 325 MG TAB PO PRN (18:10)
[2019-11-16] MEDS: GABAPENTIN 100 MG CAP PO SCH (20:41)
[2019-11-17] MEDS: PIPERACILLIN/TAZOBACTAM 3.375 GM in DEXTROSE 5% 100 ML IV SCH (06:45)
--- NOTE | 2019-11-17 07:00 | Ultrasound Report ---
US liver HISTORY: 84 years-old Female elevated LFTs acutely elevated LFTs COMPARISON: CT abdomen and pelvis 04/28/2012 TECHNIQUE: Multiple real-time sonographic images of the abdominal right upper quadrant were obtained assessing grayscale appearance and color flow FINDINGS: Moderately atrophic appearance of the pancreas. Heterogeneous appearance of the liver with mild henrik nal nodularity of the parenchyma. No focal hepatic mass lesion or intrahepatic biliary ductal dilatio n. No ascites. Mild gallbladder distention with layering cholelithiasis and sludge overall measuring up to 12 cm in length. No gallbladder wall thickening or pericholecystic fluid. Sonographic [place] si gn reported as negative. Normal common bile duct, 4 mm. Increased echogenicity of the right kidney may reflect underlying chronic medical renal disease. No h ydronephrosis. IMPRESSION: 1. Heterogeneous appearance of the liver with subtle marginal nodularity may reflect underlying cirrh otic liver disease. No ascites. Correlate with clinical history and LFTs. 2. Cholelithiasis and gallbladder sludge without sonographic evidence of acute cholecystitis. 3. No biliary ductal dilation. ACT 112: Negative or not required by law. The above report was generated using voice recognition software. It may contain grammatical, syntax o r spelling errors. Electronically signed by: Christiano Abbott M.D. 11/17/2019 6:58 AM
[2019-11-17 07:23] LABS: Hematocrit (blood only) 42.8 % (37-47); Hemoglobin 14.1 g/dL (12.0-16.0); Mean Corpuscular Hemoglobin 30.9 pg (25-34); Mean Corpuscular Hgb Conc 32.9 g/dL (32-36); Mean Corpuscular Volume 93.7 fL (80-100); Mean Platelet Volume 9.7 fL (7.4-10.4); Platelet Count 206 K/uL (130-400); RDW Coefficient of Variation 14.8 % (11.5-14.5); RDW Standard Deviation 50.3 fL (36.4-46.3); Red Blood Count 4.57 M/uL (4.2-5.4); White Blood Count 11.33 K/uL (4.8-10.8)
[2019-11-17 07:43] LABS: Prothrombin Time 35.2 Seconds (9.0-12.0)
[2019-11-17 07:57] LABS: Albumin Level 2.5 gm/dl (3.4-5.0); BUN Creatinine Ratio 11.6 (10-20); Calcium 8.5 mg/dl (8.5-10.1); Creatinine Clr Calc Pharmacy 34.3 ml/min; Est GFR (Non-African American) 51.8; Potassium 3.6 mmol/L (3.5-5.1)
[2019-11-17 07:59] LABS: INR 3.8 (0.9-1.1)
[2019-11-17 08:04] LABS: Albumin Globulin Ratio 0.6 (0.9-2); Bilirubin,Total 1.2 mg/dl (0.2-1); Total Protein 6.5 gm/dl (6.4-8.2)
[2019-11-17] MEDS: PANTOprazole 40 MG TAB PO SCH (08:22)
[2019-11-17] MEDS: MULTIVITAMIN TAB PO SCH (08:22)
[2019-11-17] MEDS: METOPROLOL SUCC 25MG EXT REL TAB PO SCH (08:22)
[2019-11-17] MEDS: ASPIRIN 81 MG ECTAB PO SCH (08:22)
[2019-11-17] MEDS: DOXYCYCLINE HYCLATE 100 MG in DEXTROSE 5% 100 ML IV SCH ×3 (08:25→20:15)
[2019-11-17] MEDS: ACETAMINOPHEN 325 MG TAB PO PRN ×2 (08:37→20:17)
[2019-11-17] MEDS: SODIUM CHLORIDE 0.9% 1000ML 1,000 ML IV SCH ×2 (09:32→19:08)
--- NOTE | 2019-11-17 11:20 | Hospitalist Progress Note ---
Date of Service November 17, 2019 Assessment & Plan (1) Sepsis: (2) Pneumonia: This is an 84yo F with a PMH of paroxysmal A Fib, GERD and other medical problems listed below who presents with generalized weakness and fall this morning and was found to have sepsis 2/2 PNA. - Meets sepsis criteria per CMS guidelines with heart rate of 93 and respiration rate of 36 initially, leukocytosis of 13 and lactate of 2.4 - CXR with patchy left basilar airspace opacity. This could represent atelec tasis or pneumonia - lactic acid improved to 2.1 - blood culture: /2 bottle (+) for gram negative bacilli - change to abx to Ceftriaxone, continue Doxycycline (3) Weakness: In the setting of infection, had fall this morning -CT head without acute intracranial abnormality -PT/OT evaluations ordered - weakness improving -Patient lives alone. Case mgmt consulted (4) Paroxysmal atrial fibrillation: - continue Metoprolol -Supratherapeutic INR of 3.8 - hold coumadin -Daily INR (5) Elevated liver enzymes: Tbili of 2.1, AST of 443, ALT of 177, alk phos of 121 today: t bili 1.2, AST 277, ALT 276, AP 129 - liver US: 1. Heterogeneous appearance of the liver with subtle marginal nodularity may reflect underlying cirrhotic liver disease. No ascites. Correlate with clinical history and LFTs. 2. Cholelithiasis and gallbladder sludge without sonographic evidence of acute cholecystitis. 3. No biliary ductal dilation. - GI consulted: viral and autoimmune serologies ordered (6) GERD (gastroesophageal reflux disease): Continue PPI DVT Ppx: INR 3.8- hold coumadin Code status: FULL per discussion PCP: Noe Dispo: pending, PT/OT eval ordered may need to transition to SNF Subjective ff up for pneumonia, weakness seen resting in bed, comfortable, on room air appears brighter, less weak states she feels improved compared to yesterday less cough, no sputum no fever/chills no other symptoms Review of Systems Review of Systems: All systems reviewed & are unremarkable except as noted in HPI & below Physical Exam Physical Exam: General- oriented x 3, not in distress, speaks in sentences with no effort or accessory muscle use Eyes- anicteric Neck- no JVD Lungs- mild rhonchi, left lower lobe Heart- normal rate, regular rhythm; no murmurs Abdomen- normal bowel sounds, nondistended, soft, nontender Extremities- no pretibial edema, no calf tenderness Neuro- alert, oriented x 3; no gross focal neurologic deficits Skin- warm & dry Results & Data Vital Signs (Past 12 Hours) Vital Signs Temp Pulse Pulse Resp BP BP Pulse Ox 11/17/19 07:28 70 11/17/19 07:18 36.7 C 74 16 145/75 H 91 11/17/19 03:20 36.5 C 70 18 128/81 91 11/17/19 01:00 69 (1) Pneumonia Laterality: left Lung location: lower lobe of lung Pneumonia type: due to unspecified organism Qualified Code(s): J18.9 - Pneumonia, unspecified organism
--- NOTE | 2019-11-17 11:27 | Gastrointestinal Consultation ---
Date of Consultation November 17, 2019 Assessment & Plan (1) Elevated liver enzymes: Ms. Peña is an 84 yr old admitted for pneumonia sepsis, on zosyn/doxycline who's transaminases were elevated on arrival. Imaging is w/o bile duct abnormalities. Unsure of exact etiology of the elevated LFTs. Bile duct obstruction is unlikely. There are gallstones present but no sign of choledocholithiasis. Because no abdominal pain or nausea, unlikely to represent passage of bile duct stones/microthiliasis. Doubt cirrhosis as she has no risk factors for HERRERA or ETOH and her platelet levels are normal, though she could have early cirrhosiss. Will check viral and autoimmune serology. Check LFTs again tomorrow, but plan for OP GI f/u for elevated LFTs. Our office will contact her to arrange. Present on Admission?: Yes Supervising Physician Co-Signing Physician Notes I have personally seen and examined the patient with KOSTA Bermudez . Her note reflects my exam and findings. I agree with her impression and plan. We recommend serologic work up for hepatitis. Follow enzymes. Travis Ferrari M.D. History of Present Illness Reason for Consultation: Elevated LFTs Requesting Physician: Dr. Moon Attending Physician: Marc Moon MD History of Present Illness Ms. Gerri Peña is an 84 yr old female pt of Dr. Liu with a hx of A-fib, GERD who was brought to [facility] ED on 11/14 for a fall and is being treated for sepsis/pneumonia. On zosyn and doxycycline. GI is consulted for elevated LFTs. On arrival, T Bili 2.1->1.2 today, AST 443-> 277, ALT 177->276, Alk Phos 121- >129. Liver US with ? cirrhosis, cholelithiasis w/o any ductal abnormalities. She is seen and examined while she is resting in bed. She denies any history of prior liver problems or elevated LFTs. No abdominal pain. No nausea or vomiting. No jaundice. Allergies Allergy/AdvReac Type Severity Reaction Status Date / Time Sulfa (Sulfonamide Allergy Mild rash Verified 11/16/19 07:28 Antibiotics) Macrolide Antibiotics Allergy Unknown Unknown Verified 11/17/19 08:53 niacin Allergy Unknown Unknown Verified 11/17/19 08:53 rosuvastatin [From Crestor] Allergy Unknown Unknown Verified 11/17/19 08:53 cephalexin AdvReac Intermediate Weakness Verified 11/17/19 08:53 gabapentin AdvReac Intermediate unknown Verified 11/16/19 07:28 risedronate sodium AdvReac Intermediate unknown Verified 11/16/19 07:28 Home Medications Home Medications Medication Instructions Recorded Confirmed Type aspirin [Aspirin Low Dose] 81 mg PO DAILY 11/16/19 11/16/19 History gabapentin 200 mg PO HS 11/16/19 11/16/19 History metoprolol succinate 12.5 mg PO DAILY 11/16/19 11/16/19 History jocdmfqo-mjo-KQ-lycopen-lutein 1 tab PO DAILY 11/16/19 11/16/19 History [Centrum Silver] omeprazole 20 mg PO DAILY 11/16/19 11/16/19 History warfarin 2.5 mg PO SUMOTUWEFRSA@1600 11/16/19 11/16/19 History warfarin 5 mg PO TH@1600 11/16/19 11/16/19 History Patient History Medical History GERD (gastroesophageal reflux disease) (Chronic) History of TIA (transient ischemic attack) (Chronic) Paroxysmal atrial fibrillation (Chronic) Stroke-like symptoms (Inactive) Surgical History History of appendectomy (Chronic) Family History Other Family history non-contributory Social History Communication Ability: Effective Beliefs That Will Affect Care: None marital status: / Current Living Situation: Alone Feels Safe at Home: Yes Safety Concerns: Feels Safe At This Time Smoking Status: Never smoker Do You Dip or Chew Tobacco: No ; Second Hand Exposure: No ; Tobacco Cessation Education Requested by Patient: No Hx Alcohol Use: No Hx Substance Use: No Review of Systems Review of Systems: ROS: Gen: + weakness. No fevers or weight loss Eyes: No eye redness, or pain, no recent vision changes Resp: No SOB, no cough Cardio: No palpitations/irregular beats, no chest pain GI: No abdominal pain, no nausea/vomiting : Denies pain on urination Skin: No jaundice, itching or new rashes Physical Exam Constitutional: WD/WN, vitals as above + thin Eyes: PERRL, conjunctivae normal, anicteric sclerae ENMT: external ear and nose normal, oropharynx normal Neck: trachea midline, no thyromegaly Respiratory: normal respiratory effort, lungs clear to auscultation Cardiovascular: RRR, no murmur, no edema Gastrointestinal (Abdomen): normal bowel sounds, soft, nontender, no hepatosplenomegaly Skin: no rashes, warm and dry Neurologic: PERRL, EOMI, accommodation nl, no face palsy, no dysarthria Psychiatric: A+Ox3, euthymic affect Lymphatic: no cervical or axillary lymphadenopathy Results & Data Vital Signs (Past 12 Hours) Vital Signs Temp Pulse Pulse Resp BP BP Pulse Ox 11/17/19 07:28 70 11/17/19 07:18 36.7 C 74 16 145/75 H 91 11/17/19 03:20 36.5 C 70 18 128/81 91 11/17/19 01:00 69 Laboratory Results WBC 11.3, Hb 14, Hct 42, Platelets 206, BUN 12, Cr 1. Sodium 143, K 3.6. Diagnostic Findings US m101/18/19: 1. Heterogeneous appearance of the liver with subtle marginal nodularity may reflect underlying cirrhotic liver disease. No ascites. Correlate with clinical history and LFTs. 2. Cholelithiasis and gallbladder sludge without sonographic evidence of acute cholecystitis. 3. No biliary ductal dilation.
[2019-11-17] MEDS: cefTRIAXone SODIUM 1,000 MG in DEXTROSE 5% 50 ML IV SCH (16:03)
[2019-11-17] MEDS: GABAPENTIN 100 MG CAP PO SCH (20:17)
[2019-11-18] MEDS: SODIUM CHLORIDE 0.9% 1000ML 1,000 ML IV SCH (05:07)
[2019-11-18] MEDS ORDERED: METOPROLOL TARTRATE 1 MG/ML VIAL IV STA (06:45)
[2019-11-18] MEDS ORDERED: POTASSIUM CHLORIDE 20 MEQ TABCR PO STA (06:47)
[2019-11-18] MEDS ORDERED: MAGNESIUM SULFATE / D5W 1 GM/100 ML BAG IV ONE (07:00)
[2019-11-18] MEDS ORDERED: FUROSEMIDE 20 MG in SYRINGE 0 ML IV ONE ×2 (07:15→09:00)
--- NOTE | 2019-11-18 07:46 | XRay Report ---
XR chest 1V portable HISTORY: Hypoxia. COMPARISON: Chest 11/16/2019. FINDINGS: No pneumothorax. There are low lung volumes with diffuse interstitial thickening. This is p rogressed. Trace bilateral pleural effusions and patchy bibasilar densities are also noted. The heart is normal in size. IMPRESSION: Interval progression of the diffuse interstitial thickening, trace bilateral pleural effusions, and p atchy bibasilar densities. This favors mild pulmonary edema on the background of chronic interstitial change. An atypical pneumonitis could also have a similar appearance. ACT 112: Negative or not required by law. Electronically signed by: Chris Schreiber M.D. 11/18/2019 7:45 AM
[2019-11-18 08:01] LABS: Hematocrit (blood only) 45.3 % (37-47); Hemoglobin 15.3 g/dL (12.0-16.0); Mean Corpuscular Hemoglobin 31.4 pg (25-34); Mean Corpuscular Hgb Conc 33.8 g/dL (32-36); Platelet Count 200 K/uL (130-400); RDW Standard Deviation 51.1 fL (36.4-46.3); Red Blood Count 4.87 M/uL (4.2-5.4); White Blood Count 12.44 K/uL (4.8-10.8)
[2019-11-18 08:19] LABS: INR 1.9 (0.9-1.1); Prothrombin Time 18.5 Seconds (9.0-12.0)
[2019-11-18 08:38] LABS: Albumin Level 2.5 gm/dl (3.4-5.0); BUN Creatinine Ratio 8.6 (10-20); Bilirubin Direct 0.2 mg/dl (0-0.2); Calcium 8.8 mg/dl (8.5-10.1); Creatinine Clr Calc Pharmacy 39.8 ml/min; Est GFR (African American) 71.9; Potassium 3.6 mmol/L (3.5-5.1)
[2019-11-18] MEDS: METOPROLOL SUCC 25MG EXT REL TAB PO SCH ×2 (08:42→10:33)
[2019-11-18] MEDS: MULTIVITAMIN TAB PO SCH (08:43)
[2019-11-18] MEDS: ASPIRIN 81 MG ECTAB PO SCH (08:43)
[2019-11-18] MEDS: PANTOprazole 40 MG TAB PO SCH (08:43)
[2019-11-18 08:47] LABS: Albumin Globulin Ratio 0.5 (0.9-2); Bilirubin,Total 0.7 mg/dl (0.2-1); Globulin 4.6 gm/dl (2.5-4.0); Total Protein 7.1 gm/dl (6.4-8.2)
--- NOTE | 2019-11-18 08:51 | Hospitalist Progress Note ---
Date of Service November 18, 2019 Assessment & Plan (1) Weakness: (1) Sepsis: (2) E coli Bacteremia, likely Biliary Source This is an 84yo F with a PMH of paroxysmal A Fib, GERD and other medical problems listed below who presents with generalized weakness and fall this morning and was found to have sepsis 2/2 PNA. - Meets sepsis criteria per CMS guidelines with heart rate of 93 and respiration rate of 36 initially, leukocytosis of 13 and lactate of 2.4 - CXR with patchy left basilar airspace opacity. This could represent atelectasis or pneumonia - lactic acid improved to 2.1 - blood culture: 12/01 bottle (+) E coli LFTs improving Liver US: no signs of obstruction - ID consulted continue Ceftri, d/c Doxycycline as PNA unlikely Keflex on d/c x 2 weeks (3) Weakness: In the setting of infection, had fall this morning -CT head without acute intracranial abnormality -PT/OT evaluations ordered - weakness improving -Patient lives alone. Case mgmt consulted (4) Paroxysmal atrial fibrillation: in RVR likely from Sepsis, Volume overload - management of sepsis per #1 - Lasix 40mg IV total given d/c IV fluids - continue Metoprolol -Supratherapeutic INR of 3.8 on admission - INR now 1.9 restart coumadin, bridge with Lovenox as patient has history of TIA - daily INR (5) Elevated liver enzymes: Tbili of 2.1, AST of 443, ALT of 177, alk phos of 121 today: t bili 1.2, AST 277, ALT 276, AP 129 - liver US: 1. Heterogeneous appearance of the liver with subtle marginal nodularity may reflect underlying cirrhotic liver disease. No ascites. Correlate with clinical history and LFTs. 2. Cholelithiasis and gallbladder sludge without sonographic evidence of acute cholecystitis. 3. No biliary ductal dilation. - GI consulted: viral and autoimmune serologies ordered (6) GERD (gastroesophageal reflux disease): Continue PPI DVT prophylaxis Coumadin + Lovenox bridge Disposition anticipate to transition to SNF upon discharge Subjective Follow-up for pneumonia, bacteremia Was noted to be in RVR early this morning, pulmonary congestion also noted, given IV Lopressor and IV Lasix Seen resting in bed, comfortable, not in distress, on 2 L of nasal cannula States she feels okay overall Denies shortness of breath, palpitations, chest pain, shortness of breath, dizziness, nausea No abdominal pain No other symptoms Review of Systems Review of Systems: All systems reviewed & are unremarkable except as noted in HPI & below Physical Exam Physical Exam: General- oriented x 3, not in distress, speaks in sentences with no effort or accessory muscle use Eyes- anicteric Neck- no JVD Lungs-mild rales bilateral bases, no wheezing Heart-tachycardic, irregularly irregular rhythm; no murmurs Abdomen- normal bowel sounds, nondistended, soft, nontender Extremities- no pretibial edema, no calf tenderness Neuro- alert, oriented x 3; no gross focal neurologic deficits Skin- warm & dry Results & Data Vital Signs (Past 12 Hours) Vital Signs Temp Pulse Pulse Resp BP BP BP 11/18/19 07:28 36.5 C 135 H 16 128/78 11/18/19 07:13 156 H 11/18/19 07:12 123 H 128/78 11/18/19 04:17 36.7 C 79 19 152/79 H 11/18/19 02:54 80 11/17/19 23:29 11/17/19 23:19 37.1 C 83 18 144/83 H Pulse Ox 11/18/19 07:28 95 11/18/19 07:13 11/18/19 07:12 11/18/19 04:17 92 11/18/19 02:54 11/17/19 23:29 95 11/17/19 23:19 85 L Laboratory Results Laboratory Results - last 24 hr 11/18/19 11/18/19 11/18/19 07:39 07:39 07:39 WBC RBC Hgb Hct MCV MCH MCHC RDW Std Deviation RDW Coeff of Lobo Plt Count MPV PT INR Sodium 143 Potassium 3.6 Chloride 114 H Carbon Dioxide 22 Anion Gap 8.0 BUN 8 Creatinine 0.87 Est Cr Clr Drug Dosing 39.8 Est GFR ( Amer) 71.9 Est GFR (Non-Af Amer) 62.0 BUN/Creatinine Ratio 8.6 L Glucose 92 Calcium 8.8 Magnesium 2.0 Total Bilirubin 0.7 D Direct Bilirubin 0.2 D AST 115 H ALT 189 H Alkaline Phosphatase 125 H Total Protein 7.1 Albumin 2.5 L Globulin 4.6 H Albumin/Globulin Ratio 0.5 L DERREK Screen Anti-Mitochondrial Ab Anti-Smooth Muscle Ab CMV IgM Ab Hep Bs Antigen Neg Hep B Core Total Ab Hepatitis C Antibody Neg Monoscreen Negative Parvovirus IgG Ab Index Parvovirus IgM Ab Index 11/18/19 11/18/19 11/18/19 07:39 07:39 07:39 WBC 12.44 H RBC 4.87 Hgb 15.3 Hct 45.3 MCV 93.0 MCH 31.4 MCHC 33.8 RDW Std Deviation 51.1 H RDW Coeff of Lobo 15.0 H Plt Count 200 MPV 10.0 PT 18.5 H INR 1.9 H Sodium Potassium Chloride Carbon Dioxide Anion Gap BUN Creatinine Est Cr Clr Drug Dosing Est GFR ( Amer) Est GFR (Non-Af Amer) BUN/Creatinine Ratio Glucose Calcium Magnesium Total Bilirubin Direct Bilirubin AST ALT Alkaline Phosphatase Total Protein Albumin Globulin Albumin/Globulin Ratio DERREK Screen Pending Anti-Mitochondrial Ab Pending Anti-Smooth Muscle Ab Pending CMV IgM Ab Pending Hep Bs Antigen Hep B Core Total Ab Pending Hepatitis C Antibody Monoscreen Parvovirus IgG Ab Index Pending Parvovirus IgM Ab Index Pending
[2019-11-18 08:58] LABS: Hepatitis B Surface Antigen Neg (Neg)
[2019-11-18] MEDS ORDERED: ENOXAPARIN 1 MG/KG SQ SCH (09:00)
[2019-11-18] MEDS ORDERED: DOXYCYCLINE HYCLATE 100 MG CAP PO SCH (09:00)
--- NOTE | 2019-11-18 09:18 | Gastroenterology Progress Note ---
Date of Service November 18, 2019 Assessment & Plan (1) Elevated liver enzymes: Ms. Peña is an 84 yr old admitted for pneumonia sepsis, on zosyn/doxycline who's transaminases were elevated on arrival. Imaging is w/o bile duct abnormalities. Unsure of exact etiology of the elevated LFTs. Bile duct obstruction is unlikely. There are gallstones present but no sign of choledocholithiasis. Because no abdominal pain or nausea, unlikely to represent passage of bile duct stones/microthiliasis. She is awake, alert and oriented, tolerating diet without any acute GI concerns. LFTs this AM downtrending, serology pending. Doubt cirrhosis as she has no risk factors for HERRERA or ETOH and her platelet levels are normal, though she could have early cirrhosis. Will check viral and autoimmune serology. Check LFTs again tomorrow, but plan for OP GI f/u for elevated LFTs Our office will contact her to arrange. GI sign off. Supervising Physician Co-Signing Physician Notes I have personally seen and examined the patient with KOSTA Martin. Her note reflects my exam and findings. I agree with her impression and plan. Improved liver enzymes. Will arrange out patient follow up. Travis Ferrari M.D. Subjective Pt was seen and evaluated, chart reviewed. Feeling well Just finished breakfast No nausea, vomiting Moved bowels x 2 Alert and oriented x 3 Review of Systems Constitutional: no fever and no body aches Respiratory: no cough and no dyspnea Cardiovascular: no chest pain and no radiating jaw, neck or arm pain Gastrointestinal: no abdominal pain and no vomiting Physical Exam Constitutional: well developed Neck: trachea midline Respiratory: normal respiratory effort Cardiovascular: Rate/Rhythm: regular rate Gastrointestinal (Abdomen): Percussion/Palpation: abdomen soft; abdomen nontender and no guarding Results & Data Vital Signs (Past 12 Hours) Vital Signs Temp Pulse Pulse Resp BP BP BP 11/18/19 07:28 36.5 C 135 H 16 128/78 11/18/19 07:13 156 H 11/18/19 07:12 123 H 128/78 11/18/19 04:17 36.7 C 79 19 152/79 H 11/18/19 02:54 80 11/17/19 23:29 11/17/19 23:19 37.1 C 83 18 144/83 H Pulse Ox 11/18/19 07:28 95 11/18/19 07:13 11/18/19 07:12 11/18/19 04:17 92 11/18/19 02:54 11/17/19 23:29 95 11/17/19 23:19 85 L Laboratory Results 11/18/19 11/18/19 11/18/19 Range/Units 07:39 07:39 07:39 WBC 12.44 H (4.8-10.8) K/uL RBC 4.87 (4.2-5.4) M/uL Hgb 15.3 (12.0-16.0) g/dL Hct 45.3 (37-47) % MCV 93.0 (80-100) fL MCH 31.4 (25-34) pg MCHC 33.8 (32-36) g/dL RDW Std Deviation 51.1 H (36.4-46.3) fL RDW Coeff of Lobo 15.0 H (11.5-14.5) % Plt Count 200 (130-400) K/uL MPV 10.0 (7.4-10.4) fL PT 18.5 H (9.0-12.0) Seconds INR 1.9 H (0.9-1.1) Sodium (136-145) mmol/L Potassium (3.5-5.1) mmol/L Chloride (98-107) mmol/L Carbon Dioxide (21-32) mmol/L Anion Gap (3-11) BUN (7-18) mg/dl Creatinine (0.6-1.2) mg/dl Est Cr Clr Drug Dosing ml/min Est GFR ( Amer) Est GFR (Non-Af Amer) BUN/Creatinine Ratio (10-20) Glucose (70-99) mg/dl Calcium (8.5-10.1) mg/dl Magnesium (1.8-2.4) mg/dl Total Bilirubin (0.2-1) mg/dl Direct Bilirubin (0-0.2) mg/dl AST (15-37) U/L ALT (12-78) U/L Alkaline Phosphatase (45-117) U/L Total Protein (6.4-8.2) gm/dl Albumin (3.4-5.0) gm/dl Globulin (2.5-4.0) gm/dl Albumin/Globulin Ratio (0.9-2) DERREK Screen Pending Anti-Mitochondrial Ab Pending Anti-Smooth Muscle Ab Pending CMV IgM Ab Pending Hep Bs Antigen (Neg) Hep B Core Total Ab Pending Hepatitis C Antibody Monoscreen (Negative) Parvovirus IgG Ab Index Pending Parvovirus IgM Ab Index Pending 11/18/19 11/18/19 11/18/19 Range/Units 07:39 07:39 07:39 WBC (4.8-10.8) K/uL RBC (4.2-5.4) M/uL Hgb (12.0-16.0) g/dL Hct (37-47) % MCV (80-100) fL MCH (25-34) pg MCHC (32-36) g/dL RDW Std Deviation (36.4-46.3) fL RDW Coeff of Lobo (11.5-14.5) % Plt Count (130-400) K/uL MPV (7.4-10.4) fL PT (9.0-12.0) Seconds INR (0.9-1.1) Sodium 143 (136-145) mmol/L Potassium 3.6 (3.5-5.1) mmol/L Chloride 114 H (98-107) mmol/L Carbon Dioxide 22 (21-32) mmol/L Anion Gap 8.0 (3-11) BUN 8 (7-18) mg/dl Creatinine 0.87 (0.6-1.2) mg/dl Est Cr Clr Drug Dosing 39.8 ml/min Est GFR ( Amer) 71.9 Est GFR (Non-Af Amer) 62.0 BUN/Creatinine Ratio 8.6 L (10-20) Glucose 92 (70-99) mg/dl Calcium 8.8 (8.5-10.1) mg/dl Magnesium 2.0 (1.8-2.4) mg/dl Total Bilirubin 0.7 D (0.2-1) mg/dl Direct Bilirubin 0.2 D (0-0.2) mg/dl AST 115 H (15-37) U/L ALT 189 H (12-78) U/L Alkaline Phosphatase 125 H (45-117) U/L Total Protein 7.1 (6.4-8.2) gm/dl Albumin 2.5 L (3.4-5.0) gm/dl Globulin 4.6 H (2.5-4.0) gm/dl Albumin/Globulin Ratio 0.5 L (0.9-2) DERREK Screen Anti-Mitochondrial Ab Anti-Smooth Muscle Ab CMV IgM Ab Hep Bs Antigen Neg (Neg) Hep B Core Total Ab Hepatitis C Antibody Pending Monoscreen Negative (Negative) Parvovirus IgG Ab Index Parvovirus IgM Ab Index
[2019-11-18 09:26] LABS: Hepatitis C IgG 13Yrs+Old_Rflx Neg (Neg)
[2019-11-18] MEDS: ENOXAPARIN INJ 60 MG/0.6 ML SYR SQ SCH ×2 (10:29→20:29)
--- NOTE | 2019-11-18 13:34 | Infectious Disease Consult ---
Date of Consultation November 18, 2019 Assessment & Plan (1) Gram negative sepsis: can continue rocephin for now, can stop doxy from ID standpoint. upon d/c would suggest po keflex 500mg po bid x 14 days. repeat blood cultures. suspect source is biliary, LFTs improving, GI following. History of Present Illness Attending Physician: Marc Moon MD pt admitted due to weakness and fall at home. temp 37.6 in Er, blood cultures done, 1/2 growing bearden sensitive E. coli, no repeat cultures done. She is on ctx and po doxy, tolerating well. she is overall feeling better today. she denies cp,sob, cough. has some upper abd pain, no n/v/d. eating well no gu symptoms. UA negatie. wbc 12. creat 0.8. Flu swab negative. LFTS elevated but improving, s/p GI eval, liver ultrasound, gb sludge noted, no obstruction, no cholecystitis. no plan for surgery. ID consulted for + blood culture. Allergies Allergy/AdvReac Type Severity Reaction Status Date / Time Sulfa (Sulfonamide Allergy Mild rash Verified 11/16/19 07:28 Antibiotics) Macrolide Antibiotics Allergy Unknown Unknown Verified 11/17/19 08:53 niacin Allergy Unknown Unknown Verified 11/17/19 08:53 rosuvastatin [From Crestor] Allergy Unknown Unknown Verified 11/17/19 08:53 cephalexin AdvReac Intermediate Weakness Verified 11/17/19 08:53 gabapentin AdvReac Intermediate unknown Verified 11/16/19 07:28 risedronate sodium AdvReac Intermediate unknown Verified 11/16/19 07:28 Home Medications Home Medications Medication Instructions Recorded Confirmed Type aspirin [Aspirin Low Dose] 81 mg PO DAILY 11/16/19 11/16/19 History gabapentin 200 mg PO HS 11/16/19 11/16/19 History metoprolol succinate 12.5 mg PO DAILY 11/16/19 11/16/19 History yzjudcqv-lom-DI-lycopen-lutein 1 tab PO DAILY 11/16/19 11/16/19 History [Centrum Silver] omeprazole 20 mg PO DAILY 11/16/19 11/16/19 History warfarin 2.5 mg PO SUMOTUWEFRSA@1600 11/16/19 11/16/19 History warfarin 5 mg PO TH@1600 11/16/19 11/16/19 History Patient History Medical History GERD (gastroesophageal reflux disease) (Chronic) History of TIA (transient ischemic attack) (Chronic) Paroxysmal atrial fibrillation (Chronic) Stroke-like symptoms (Inactive) Surgical History History of appendectomy (Chronic) Family History Other Family history non-contributory Social History Communication Ability: Effective Beliefs That Will Affect Care: None marital status: / Current Living Situation: Alone Feels Safe at Home: Yes Safety Concerns: Feels Safe At This Time Smoking Status: Never smoker Do You Dip or Chew Tobacco: No ; Second Hand Exposure: No ; Tobacco Cessation Education Requested by Patient: No Hx Alcohol Use: No Hx Substance Use: No Review of Systems Review of Systems: All systems reviewed & are unremarkable except as noted in HPI & below Physical Exam Constitutional: WD/WN, vitals as above Eyes: PERRL, conjunctivae normal, anicteric sclerae ENMT: external ear and nose normal, oropharynx normal Neck: normal visual inspection Respiratory: normal respiratory effort, lungs clear to auscultation Cardiovascular: RRR, no murmur, no edema Gastrointestinal (Abdomen): normal bowel sounds, soft, nontender, no hepatosplenomegaly Musculoskeletal: no cyanosis or clubbing, extremities motor strength 5/5 Skin: no rashes, warm and dry Psychiatric: A+Ox3, euthymic affect Results & Data Vital Signs (Past 12 Hours) Vital Signs Temp Pulse Pulse Resp BP BP Pulse Ox 11/18/19 11:46 36.6 C 116 H 16 126/83 93 11/18/19 07:28 36.5 C 135 H 16 128/78 95 11/18/19 07:13 156 H 11/18/19 07:12 123 H 128/78 11/18/19 04:17 36.7 C 79 19 152/79 H 92 11/18/19 02:54 80 Laboratory Results Microbiology 11/16/19 07:28 Blood Aerobic Blood Culture - Preliminary No growth in Aerobic bottle after 48 hours. 11/16/19 07:28 Blood Anaerobic Blood Culture - Preliminary No growth in Anaerobic bottle after 48 hours. 11/16/19 07:26 Blood Aerobic Blood Culture - Preliminary No growth in Aerobic bottle after 48 hours. 11/16/19 07:26 Blood Anaerobic Blood Culture - Preliminary Escherichia coli PG Care Time/CCT Total # of Minutes Spent Total Time Spent with Patient: Total time spent is greater than 50% in coordination of care (as documented) at patient's floor/unit and/or counseling patient:
[2019-11-18] MEDS: cefTRIAXone SODIUM 1,000 MG in DEXTROSE 5% 50 ML IV SCH (15:29)
[2019-11-18] MEDS ORDERED: WARFARIN SOD 2.5 MG TAB PO SCH (16:00)
[2019-11-18] MEDS: GABAPENTIN 100 MG CAP PO SCH (20:28)
[2019-11-19 08:18] LABS: INR 1.4 (0.9-1.1); Prothrombin Time 14.4 Seconds (9.0-12.0)
[2019-11-19] MEDS: ENOXAPARIN INJ 60 MG/0.6 ML SYR SQ SCH (08:25)
[2019-11-19] MEDS: METOPROLOL SUCC 25MG EXT REL TAB PO SCH (08:25)
[2019-11-19] MEDS: PANTOprazole 40 MG TAB PO SCH (08:26)
[2019-11-19] MEDS: MULTIVITAMIN TAB PO SCH (08:26)
[2019-11-19 08:38] LABS: Alanine Aminotransferase 122 U/L (12-78); Albumin Level 2.4 gm/dl (3.4-5.0); Aspartate Aminotransferase 50 U/L (15-37); BUN Creatinine Ratio 14.1 (10-20); Blood Urea Nitrogen 15 mg/dl (7-18); Calcium 8.8 mg/dl (8.5-10.1); Carbon Dioxide 25 mmol/L (21-32); Chloride 111 mmol/L (98-107); Creatinine Clr Calc Pharmacy 29.7 ml/min; Est GFR (African American) 57.3; Est GFR (Non-African American) 49.4; Glucose 89 mg/dl (70-99); Potassium 3.7 mmol/L (3.5-5.1); Sodium 142 mmol/L (136-145)
[2019-11-19 08:41] LABS: Alkaline Phosphatase 109 U/L (45-117); Bilirubin,Total 0.6 mg/dl (0.2-1); Total Protein 6.9 gm/dl (6.4-8.2)
[2019-11-19 09:30] LABS: Bilirubin Direct < 0.1 mg/dl (0-0.2)
[2019-11-19] MEDS: cefTRIAXone SODIUM 1,000 MG in DEXTROSE 5% 50 ML IV SCH (15:07)
[2019-11-19] MEDS: WARFARIN SOD 5 MG TAB PO SCH (16:50)
--- NOTE | 2019-11-19 19:48 | Hospitalist Progress Note ---
Date of Service November 19, 2019 Assessment & Plan (1) Weakness: (1) Sepsis: (2) E coli Bacteremia, likely Biliary Source This is an 84yo F with a PMH of paroxysmal A Fib, GERD and other medical problems listed below who presents with generalized weakness and fall this morning and was found to have sepsis 2/2 PNA. - Meets sepsis criteria per CMS guidelines with heart rate of 93 and respiration rate of 36 initially, leukocytosis of 13 and lactate of 2.4 - CXR with patchy left basilar airspace opacity. This could represent atelectasis or pneumonia - lactic acid improved to 2.1 - blood culture: 12/01 bottle (+) E coli LFTs improving Liver US: no signs of obstruction - ID consulted continue Ceftri, d/c Doxycycline as PNA unlikely Keflex on d/c x 2 weeks - afebrile, clinically improving (3) Weakness: In the setting of infection, had fall this morning -CT head without acute intracranial abnormality -PT/OT evaluations ordered - weakness improving -Patient lives alone. Case mgmt consulted (4) Paroxysmal atrial fibrillation: in RVR likely from Sepsis, Volume overload - management of sepsis per #1 - Lasix 40mg IV total given d/c IV fluids - continue Metoprolol -Supratherapeutic INR of 3.8 on admission - INR now 1.4 increase coumadin, bridge with Lovenox as patient has history of TIA - daily INR (5) Elevated liver enzymes: Tbili of 2.1, AST of 443, ALT of 177, alk phos of 121 today: t bili 1.2, AST 277, ALT 276, AP 129 - liver US: 1. Heterogeneous appearance of the liver with subtle marginal nodularity may reflect underlying cirrhotic liver disease. No ascites. Correlate with clinical history and LFTs. 2. Cholelithiasis and gallbladder sludge without sonographic evidence of acute cholecystitis. 3. No biliary ductal dilation. - GI consulted: viral and autoimmune serologies ordered (6) GERD (gastroesophageal reflux disease): Continue PPI DVT prophylaxis Coumadin + Lovenox bridge Disposition anticipate to transition to SNF upon discharge Subjective ff up for e coli bacteremia seen resting in bed, comfortable, off oxygen supplement states she continues to feel improved no abdominal pain, nausea/vomiting no fever/chills breathing is much better no other symptoms Review of Systems Review of Systems: All systems reviewed & are unremarkable except as noted in HPI & below Physical Exam Physical Exam: General- oriented x 3, not in distress, speaks in sentences with no effort or accessory muscle use Eyes- anicteric Neck- no JVD Lungs- faint rales at the left base, clear on the right no wheezing Heart- normal rate, irregularly irregular rhythm; no murmurs Abdomen- normal bowel sounds, nondistended, soft, nontender Extremities- no pretibial edema, no calf tenderness Neuro- alert, oriented x 3; no gross focal neurologic deficits Skin- warm & dry Results & Data Vital Signs (Past 12 Hours) Vital Signs Temp Pulse Pulse Resp BP Pulse Ox 11/19/19 15:45 81 11/19/19 15:22 36.8 C 78 18 120/75 96 11/19/19 11:20 36.9 C 78 18 122/65 94 Laboratory Results Laboratory Results - last 24 hr 11/19/19 11/19/19 07:43 07:43 PT 14.4 H INR 1.4 H Sodium 142 Potassium 3.7 Chloride 111 H Carbon Dioxide 25 Anion Gap 5.0 BUN 15 D Creatinine 1.05 Est Cr Clr Drug Dosing 29.7 Est GFR ( Amer) 57.3 Est GFR (Non-Af Amer) 49.4 BUN/Creatinine Ratio 14.1 Glucose 89 Calcium 8.8 Total Bilirubin 0.6 Direct Bilirubin < 0.1 D AST 50 H ALT 122 H Alkaline Phosphatase 109 Total Protein 6.9 Albumin 2.4 L
[2019-11-19] MEDS: GABAPENTIN 100 MG CAP PO SCH (21:09)
[2019-11-19] MEDS: ACETAMINOPHEN 325 MG TAB PO PRN (23:31)
[2019-11-20 07:13] LABS: INR 1.6 (0.9-1.1); Prothrombin Time 15.8 Seconds (9.0-12.0)
[2019-11-20 07:32] LABS: Alanine Aminotransferase 92 U/L (12-78); Albumin Level 2.2 gm/dl (3.4-5.0); Aspartate Aminotransferase 41 U/L (15-37); BUN Creatinine Ratio 18.2 (10-20); Bilirubin Direct < 0.1 mg/dl (0-0.2); Blood Urea Nitrogen 15 mg/dl (7-18); Calcium 8.7 mg/dl (8.5-10.1); Carbon Dioxide 25 mmol/L (21-32); Chloride 110 mmol/L (98-107); Creatinine Clr Calc Pharmacy 40.7 ml/min; Est GFR (African American) 76.1; Est GFR (Non-African American) 65.7; Glucose 85 mg/dl (70-99); Potassium 3.7 mmol/L (3.5-5.1); Sodium 141 mmol/L (136-145)
[2019-11-20 07:35] LABS: Alkaline Phosphatase 92 U/L (45-117); Bilirubin,Total 0.5 mg/dl (0.2-1); Total Protein 6.3 gm/dl (6.4-8.2)
[2019-11-20] MEDS: MULTIVITAMIN TAB PO SCH (07:39)
[2019-11-20] MEDS: PANTOprazole 40 MG TAB PO SCH (07:39)
[2019-11-20] MEDS: METOPROLOL SUCC 25MG EXT REL TAB PO SCH (07:40)
[2019-11-20] MEDS ORDERED: ENOXAPARIN INJ 60 MG/0.6 ML SYR SQ SCH (09:00)
[2019-11-20] MEDS ORDERED: FUROSEMIDE 20 MG in SYRINGE 0 ML IV ONE (10:30)
[2019-11-20] MEDS: ACETAMINOPHEN 325 MG TAB PO PRN ×2 (13:48→19:03)
--- NOTE | 2019-11-20 14:40 | Hospitalist Progress Note ---
Date of Service November 20, 2019 Assessment & Plan (1) Weakness: (1) Sepsis: (2) E coli Bacteremia, likely Biliary Source This is an 84yo F with a PMH of paroxysmal A Fib, GERD and other medical problems listed below who presents with generalized weakness and fall this morning and was found to have sepsis 2/2 PNA. - Meets sepsis criteria per CMS guidelines with heart rate of 93 and respiration rate of 36 initially, leukocytosis of 13 and lactate of 2.4 - CXR with patchy left basilar airspace opacity. This could represent atelectasis or pneumonia - lactic acid improved to 2.1 - blood culture: 12/01 bottle (+) E coli LFTs improving Liver US: no signs of obstruction - ID consulted continue Ceftri, d/c Doxycycline as PNA unlikely Keflex on d/c x 2 weeks -Remains stable overall Hypoxia - Likely secondary to volume loss secondary to IV fluids Additional Lasix 20 mg IV to be given today Check echo (3) Weakness: In the setting of infection, had fall this morning -CT head without acute intracranial abnormality -PT/OT evaluations ordered - weakness improving -Patient lives alone. Case mgmt consulted (4) Paroxysmal atrial fibrillation: in RVR likely from Sepsis, Volume overload - management of sepsis per #1 - Lasix 40mg IV total given d/c IV fluids - continue Metoprolol -Supratherapeutic INR of 3.8 on admission - INR now 1.6 continue coumadin 5mg, bridge with Lovenox as patient has history of TIA - daily INR (5) Elevated liver enzymes: Tbili of 2.1, AST of 443, ALT of 177, alk phos of 121 today: t bili 1.2, AST 277, ALT 276, AP 129 - liver US: 1. Heterogeneous appearance of the liver with subtle marginal nodularity may reflect underlying cirrhotic liver disease. No ascites. Correlate with clinical history and LFTs. 2. Cholelithiasis and gallbladder sludge without sonographic evidence of acute cholecystitis. 3. No biliary ductal dilation. - GI consulted: viral and autoimmune serologies ordered (6) GERD (gastroesophageal reflux disease): Continue PPI DVT prophylaxis Coumadin + Lovenox bridge Disposition anticipate to transition to SNF upon discharge Subjective Follow-up for E. coli bacteremia Seen resting in bed, comfortable, on 2 L of nasal cannula States she feels improved again today No dyspnea, no cough, no sputum production Abdominal pain, nausea vomiting Appetite strength continues to improve Review of Systems Review of Systems: All systems reviewed & are unremarkable except as noted in HPI & below Physical Exam Physical Exam: General- oriented x 3, not in distress, speaks in sentences with no effort or accessory muscle use Eyes- anicteric Neck- no JVD Lungs-mild rales at the bases, no wheezing, good air entry bilaterally Heart- normal rate, irregularly irregular rhythm; no murmurs Abdomen- normal bowel sounds, nondistended, soft, nontender Extremities- no pretibial edema, no calf tenderness Neuro- alert, oriented x 3; no gross focal neurologic deficits Skin- warm & dry Results & Data Vital Signs (Past 12 Hours) Vital Signs Temp Pulse Resp BP BP Pulse Ox 11/20/19 11:49 36.9 C 76 20 131/75 93 11/20/19 07:53 36.8 C 65 18 145/72 H 91 11/20/19 04:00 36.5 C 66 19 134/74 93 Laboratory Results Laboratory Results - last 24 hr 11/20/19 11/20/19 06:21 06:21 PT 15.8 H INR 1.6 H Sodium 141 Potassium 3.7 Chloride 110 H Carbon Dioxide 25 Anion Gap 6.0 BUN 15 Creatinine 0.83 Est Cr Clr Drug Dosing 40.7 Est GFR ( Amer) 76.1 Est GFR (Non-Af Amer) 65.7 BUN/Creatinine Ratio 18.2 Glucose 85 Calcium 8.7 Total Bilirubin 0.5 Direct Bilirubin < 0.1 AST 41 H ALT 92 H Alkaline Phosphatase 92 Total Protein 6.3 L Albumin 2.2 L
[2019-11-20] MEDS: cefTRIAXone SODIUM 1,000 MG in DEXTROSE 5% 50 ML IV SCH (15:06)
[2019-11-20] MEDS: WARFARIN SOD 5 MG TAB PO SCH (16:33)
[2019-11-20] MEDS: ENOXAPARIN INJ 60 MG/0.6 ML SYR SQ SCH (20:39)
[2019-11-20] MEDS: GABAPENTIN 100 MG CAP PO SCH (20:40)
[2019-11-21 06:40] LABS: INR 2.6 (0.9-1.1); Prothrombin Time 24.5 Seconds (9.0-12.0)
[2019-11-21 06:56] LABS: Alanine Aminotransferase 70 U/L (12-78); Albumin Level 2.1 gm/dl (3.4-5.0); Aspartate Aminotransferase 36 U/L (15-37); BUN Creatinine Ratio 15.4 (10-20); Bilirubin Direct < 0.1 mg/dl (0-0.2); Blood Urea Nitrogen 13 mg/dl (7-18); Calcium 8.5 mg/dl (8.5-10.1); Carbon Dioxide 27 mmol/L (21-32); Chloride 108 mmol/L (98-107); Creatinine Clr Calc Pharmacy 41.4 ml/min; Est GFR (African American) 77.2; Est GFR (Non-African American) 66.6; Glucose 86 mg/dl (70-99); Potassium 3.4 mmol/L (3.5-5.1); Sodium 142 mmol/L (136-145)
[2019-11-21 06:59] LABS: Alkaline Phosphatase 95 U/L (45-117); Bilirubin,Total 0.4 mg/dl (0.2-1); Total Protein 6.2 gm/dl (6.4-8.2)
[2019-11-21] MEDS: MULTIVITAMIN TAB PO SCH (07:59)
[2019-11-21] MEDS: METOPROLOL SUCC 25MG EXT REL TAB PO SCH (07:59)
[2019-11-21] MEDS: PANTOprazole 40 MG TAB PO SCH (07:59)
[2019-11-21] MEDS: ENOXAPARIN INJ 60 MG/0.6 ML SYR SQ SCH (07:59)
--- NOTE | 2019-11-21 08:39 | XRay Report ---
XR chest 1V portable CLINICAL HISTORY: 84 years-old Female presenting with follow-up hypoxia. TECHNIQUE: Portable upright AP view of the chest was obtained. COMPARISON: 11/18/2019. FINDINGS: Atherosclerosis of the aortic arch. Cardiac silhouette normal in size. Low lung volumes. Diffuse reti cular lung markings. Persistent prominence of the bilateral raysa. Persistent blunting of the left cos tophrenic angle. Overall density of the lungs have slightly decreased. No new focal opacity. No pneum othorax. Degenerative changes of the thoracic spine. Numerous overlying external leads project over t he epigastrium. IMPRESSION: 1. Decreased density of the lungs likely. Decreased pulmonary edema. No new infiltrate. 2. Possible trace left pleural effusion, unchanged. 3. Underlying chronic lung disease. 4. Low lung volumes. ACT 112: Negative or not required by law. Electronically signed by: Zak Koroma M.D. 11/21/2019 8:37 AM
[2019-11-21] MEDS ORDERED: POTASSIUM CHLORIDE 20 MEQ TABCR PO STA (12:02)
[2019-11-21] MEDS: cefTRIAXone SODIUM 1,000 MG in DEXTROSE 5% 50 ML IV SCH (15:35)
[2019-11-21] MEDS ORDERED: WARFARIN SOD 2.5 MG TAB PO SCH (16:00)
--- NOTE | 2019-11-21 17:46 | Hospitalist Progress Note ---
Date of Service November 21, 2019 Assessment & Plan (1) Weakness: (1) Sepsis: (2) E coli Bacteremia, likely Biliary Source This is an 84yo F with a PMH of paroxysmal A Fib, GERD and other medical problems listed below who presents with generalized weakness and fall this morning and was found to have sepsis 2/2 PNA. - Meets sepsis criteria per CMS guidelines with heart rate of 93 and respiration rate of 36 initially, leukocytosis of 13 and lactate of 2.4 - CXR with patchy left basilar airspace opacity. This could represent atelectasis or pneumonia - lactic acid improved to 2.1 - blood culture: 12/01 bottle (+) E coli LFTs improving Liver US: no signs of obstruction - ID consulted continue Ceftri, d/c Doxycycline as PNA unlikely Keflex on d/c x 2 weeks - management of hypoxia noted below Hypoxia - Likely secondary to volume overload secondary to IV fluids - Additional Lasix 40 mg IV to be given today Check echo: EF 50 to 60%, grade 1 diastolic dysfunction -Wean off oxygen accordingly (3) Weakness: In the setting of infection, had fall this morning -CT head without acute intracranial abnormality -PT/OT evaluations ordered - weakness improving -Patient lives alone, [facility] (4) Paroxysmal atrial fibrillation: in RVR likely from Sepsis, Volume overload - management of sepsis per #1 - continue Metoprolol -Supratherapeutic INR of 3.8 on admission - INR now 2.6 continue coumadin 2.5mg, d/c Lovenox bridge - daily INR (5) Elevated liver enzymes: Tbili of 2.1, AST of 443, ALT of 177, alk phos of 121 today: t bili 1.2, AST 277, ALT 276, AP 129 - liver US: 1. Heterogeneous appearance of the liver with subtle marginal nodularity may reflect underlying cirrhotic liver disease. No ascites. Correlate with clinical history and LFTs. 2. Cholelithiasis and gallbladder sludge without sonographic evidence of acute cholecystitis. 3. No biliary ductal dilation. - GI consulted: viral and autoimmune serologies ordered (6) GERD (gastroesophageal reflux disease): Continue PPI DVT prophylaxis Coumadin Disposition anticipate to transition to SNF upon discharge Subjective Follow-up for E. coli bacteremia Seen resting in bed, on 3 L of nasal cannula Comfortable, not distressed States she feels okay overall No shortness of breath, cough, sputum Strength is improving, appetite also better No other symptoms Review of Systems Review of Systems: All systems reviewed & are unremarkable except as noted in HPI & below Physical Exam Physical Exam: General- oriented x 3, not in distress, speaks in sentences with no effort or accessory muscle use Eyes- anicteric Neck- no JVD Lungs-positive rales bilateral bases, no wheezing Heart- normal rate, irregularly irregular rhythm; no murmurs Abdomen- normal bowel sounds, nondistended, soft, nontender Extremities- no pretibial edema, no calf tenderness Neuro- alert, oriented x 3; no gross focal neurologic deficits Skin- warm & dry Results & Data Vital Signs (Past 12 Hours) Vital Signs Temp Pulse Pulse Resp BP Pulse Ox 11/21/19 15:40 36.6 C 72 18 116/62 98 11/21/19 11:40 36.5 C 64 20 123/76 96 11/21/19 08:26 70 11/21/19 07:11 37.0 C 74 20 126/83 92 Laboratory Results Laboratory Results - last 24 hr 11/21/19 11/21/19 06:02 06:02 PT 24.5 H INR 2.6 H Sodium 142 Potassium 3.4 L Chloride 108 H Carbon Dioxide 27 Anion Gap 7.0 BUN 13 Creatinine 0.82 Est Cr Clr Drug Dosing 41.4 Est GFR ( Amer) 77.2 Est GFR (Non-Af Amer) 66.6 BUN/Creatinine Ratio 15.4 Glucose 86 Calcium 8.5 Total Bilirubin 0.4 Direct Bilirubin < 0.1 AST 36 ALT 70 Alkaline Phosphatase 95 Total Protein 6.2 L Albumin 2.1 L
[2019-11-21] MEDS ORDERED: FUROSEMIDE 20 MG in SYRINGE 0 ML IV ONE (18:00)
[2019-11-21] MEDS: ACETAMINOPHEN 325 MG TAB PO PRN (20:11)
[2019-11-21] MEDS: GABAPENTIN 100 MG CAP PO SCH (20:13)
[2019-11-22 06:49] LABS: INR 2.5 (0.9-1.1); Prothrombin Time 24.2 Seconds (9.0-12.0)
[2019-11-22 07:07] LABS: Alanine Aminotransferase 61 U/L (12-78); Albumin Level 2.3 gm/dl (3.4-5.0); Aspartate Aminotransferase 35 U/L (15-37); Bilirubin Direct < 0.1 mg/dl (0-0.2); Blood Urea Nitrogen 18 mg/dl (7-18); Calcium 8.9 mg/dl (8.5-10.1); Carbon Dioxide 30 mmol/L (21-32); Chloride 105 mmol/L (98-107); Creatinine Clr Calc Pharmacy 39.2 ml/min; Est GFR (African American) 71.9; Glucose 86 mg/dl (70-99); Potassium 3.6 mmol/L (3.5-5.1); Sodium 140 mmol/L (136-145)
[2019-11-22 07:10] LABS: Alkaline Phosphatase 96 U/L (45-117); Bilirubin,Total 0.4 mg/dl (0.2-1); Total Protein 6.8 gm/dl (6.4-8.2)
[2019-11-22] MEDS: PANTOprazole 40 MG TAB PO SCH (08:23)
[2019-11-22] MEDS: MULTIVITAMIN TAB PO SCH (08:24)
[2019-11-22] MEDS: METOPROLOL SUCC 25MG EXT REL TAB PO SCH (08:24)
--- NOTE | 2019-11-22 13:09 | Hospitalist Progress Note ---
Date of Service November 22, 2019 Assessment & Plan (1) Bacteremia: (1) Weakness: (1) Sepsis: (2) E coli Bacteremia, likely Biliary Source This is an 84yo F with a PMH of paroxysmal A Fib, GERD and other medical problems listed below who presents with generalized weakness and fall this morning and was found to have sepsis 2/2 PNA. - Meets sepsis criteria per CMS guidelines with heart rate of 93 and respiration rate of 36 initially, leukocytosis of 13 and lactate of 2.4 - CXR with patchy left basilar airspace opacity. This could represent atelectasis or pneumonia - lactic acid improved to 2.1 - blood cultures 11/16: 1/2 bottle (+) E coli repeat blood cultures 11/18: negative LFTs improving Liver US: no signs of obstruction - ID consulted given Ceftri IV discharge on: Cephalexin 500mg BID x 14 days Hypoxia - Likely secondary to volume overload secondary to IV fluids - Lasix 40 mg IV given Check echo: EF 50 to 60%, grade 1 diastolic dysfunction - oxygen supplement weaned off to 2 L via NC - continue Lasix 40mg po daily, then STOP when weaned off oxygen, when patient reaches euvolemia repeat BMP in 2-3 days, monitor while on Lasix Weakness In the setting of infection -CT head without acute intracranial abnormality -PT/OT evaluations ordered - weakness improving -Patient lives alone, patient to be discharged to alf facility - continue PT/OT Fall precautions Paroxysmal atrial fibrillation: was in RVR while admitted, resolved likely from Sepsis, Volume overload - management of sepsis per #1 - continue Metoprolol Supratherapeutic INR of 3.8 on admission - INR now 2.5 usually on coumadin 2.5mg x 6 days, then 5mg x 1 day a week - change to coumadin 2.5mg daily - daily INR until stable, then monitor closely Elevated liver enzymes: Tbili of 2.1, AST of 443, ALT of 177, alk phos of 121 then normalized - liver US: 1. Heterogeneous appearance of the liver with subtle marginal nodularity may reflect underlying cirrhotic liver disease. No ascites. Correlate with clinical history and LFTs. 2. Cholelithiasis and gallbladder sludge without sonographic evidence of acute cholecystitis. 3. No biliary ductal dilation. - GI consulted: viral and autoimmune serologies ordered: pending, ff up - ff up as outpatient with GI GERD (gastroesophageal reflux disease): Continue PPI Disposition d/c to [facility] today ff up with PCP in 1 week ff up with GI in 2 weeks Subjective ff up for e coli bacteremia seen resting in chair, comfortable on 2 L NC states she feels somewhat weak with transfers, but otherwise denies any other symptoms denies shortness of breath, chest pain, dizziness, palpitations, abdominal pain, nausea no other symptoms states she is ready and would like to be discharged today Review of Systems Review of Systems: All systems reviewed & are unremarkable except as noted in HPI & below Physical Exam Physical Exam: General- oriented x 3, not in distress, speaks in sentences with no effort or accessory muscle use Eyes- anicteric Neck- no JVD Lungs- faint rales at the bases, no wheezing, good air entry bilaterally Heart- normal rate, regular rhythm; no murmurs Abdomen- normal bowel sounds, nondistended, soft, nontender Extremities- no pretibial edema, no calf tenderness Neuro- alert, oriented x 3; no gross focal neurologic deficits Skin- warm & dry Results & Data Vital Signs (Past 12 Hours) Vital Signs Temp Pulse Resp BP BP Pulse Ox 11/22/19 11:18 36.6 C 64 16 118/70 95 11/22/19 07:21 36.6 C 72 18 126/73 95 11/22/19 04:00 36.7 C 72 18 125/68 92 Laboratory Results Laboratory Results - last 24 hr 11/18/19 11/22/19 11/22/19 07:39 06:17 06:17 PT 24.2 H INR 2.5 H Sodium 140 Potassium 3.6 Chloride 105 Carbon Dioxide 30 Anion Gap 5.0 BUN 18 Creatinine 0.87 Est Cr Clr Drug Dosing 39.2 Est GFR ( Amer) 71.9 Est GFR (Non-Af Amer) 62.0 BUN/Creatinine Ratio 21.0 H Glucose 86 Calcium 8.9 Total Bilirubin 0.4 Direct Bilirubin < 0.1 AST 35 ALT 61 Alkaline Phosphatase 96 Total Protein 6.8 Albumin 2.3 L DERREK Screen Hep B Core Total Ab Parvovirus IgG Ab Index Parvovirus IgM Ab Index
--- NOTE | 2019-11-22 13:39 | Discharge Summary ---
Date of Service November 22, 2019 Admission HPI Per Admitting Provider This is an 84yo F with a PMH of paroxysmal A Fib, GERD and other medical problems listed below who presents with generalized weakness and fall this morning. Patient states she has had a runny nose and dry cough over the past week but no other health changes. But extremely weak when she got out of bed today and fell while walking to the kitchen. Denies any head trauma or loss of consciousness. Was unable to get up on her own or reach her cell phone, so she used her Float: [place]. Denies any fever, chills, lightheadedness, visual changes, chest pain, palpitations, wheezing, hemoptysis, nausea, vomiting, abdominal pain, dysuria, diarrhea constipation. Denies any active bleeding. 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 Admission Exam Per Admitting Provider General Appearance: WD/WN, vitals as above, NAD, lying in bed, pleasant, conversing easily Head: normocephalic, atraumatic Eyes: normal inspection, PERRL, conjunctivae normal, anicteric sclerae ENT: external ear and nose normal, oropharynx normal Neck: trachea midline, no thyromegaly normal visual inspection Respiratory: normal respiratory effort, bibasilar crackles, no wheeze or rhonchi.No accessory muscle use Cardiovascular: regular rate, rhythm, no murmur, normal peripheral pulses. Vessels: no JVD or carotid bruit Chest: normal inspection of chest Abdomen/GI: normal bowel sounds, soft, nontender, no hepatosplenomegaly Extremities/Musculoskelatal: no cyanosis or clubbing, extremities motor strength 5/5 Neurologic: PERRL, EOMI, accommodation nl, no face palsy, no dysarthria, CN's II-XI intact bilaterally and moves all extremities Psychiatric: A+Ox3, euthymic affect Skin: no rashes, normal color, warm/dry Principal Diagnosis E COLI BACTEREMIA, LIKELY BILIARY SOURCE; HYPOXIA LIKELY FROM VOLUME OVERLOAD Discharge Exam General- oriented x 3, not in distress, speaks in sentences with no effort or accessory muscle use Eyes- anicteric Neck- no JVD Lungs- faint rales at the bases, no wheezing, good air entry bilaterally Heart- normal rate, regular rhythm; no murmurs Abdomen- normal bowel sounds, nondistended, soft, nontender Extremities- no pretibial edema, no calf tenderness Neuro- alert, oriented x 3; no gross focal neurologic deficits Skin- warm & dry Discharge Data Allergies Allergy/AdvReac Type Severity Reaction Status Date / Time Sulfa (Sulfonamide Allergy Mild rash Verified 11/16/19 07:28 Antibiotics) Macrolide Antibiotics Allergy Unknown Unknown Verified 11/17/19 08:53 niacin Allergy Unknown Unknown Verified 11/17/19 08:53 rosuvastatin [From Crestor] Allergy Unknown Unknown Verified 11/17/19 08:53 cephalexin AdvReac Intermediate Weakness Verified 11/17/19 08:53 gabapentin AdvReac Intermediate unknown Verified 11/16/19 07:28 risedronate sodium AdvReac Intermediate unknown Verified 11/16/19 07:28 Consultations 11/16/19 08:13 ED Decision to Admit Stat 11/16/19 10:40 Consult Case Management - Discharge Planning Routine 11/17/19 11:19 Consult Gastroenterology Routine 11/18/19 07:33 Consult Infectious Diseases Routine Ordered Studies 11/16/19 06:59 CT head/brain wo con Stat IMPRESSION: 1. Chronic small vessel ischemic change. No acute intracranial abnormality. 11/17/19 15:24 US liver Routine IMPRESSION: 1. Heterogeneous appearance of the liver with subtle marginal nodularity may reflect underlying cirrhotic liver disease. No ascites. Correlate with clinical history and LFTs. 2. Cholelithiasis and gallbladder sludge without sonographic evidence of acute cholecystitis. 3. No biliary ductal dilation. CXR: 11/21 FINDINGS: Atherosclerosis of the aortic arch. Cardiac silhouette normal in size. Low lung volumes. Diffuse reticular lung markings. Persistent prominence of the bilateral raysa. Persistent blunting of the left costophrenic angle. Overall density of the lungs have slightly decreased. No new focal opacity. No pneumothorax. Degenerative changes of the thoracic spine. Numerous overlying external leads project over the epigastrium. IMPRESSION: 1. Decreased density of the lungs likely. Decreased pulmonary edema. No new infiltrate. 2. Possible trace left pleural effusion, unchanged. 3. Underlying chronic lung disease. 4. Low lung volumes. Hospital Course (1) Bacteremia: (1) Sepsis: (2) E coli Bacteremia, likely Biliary Source This is an 84yo F with a PMH of paroxysmal A Fib, GERD and other medical problems listed below who presents with generalized weakness and fall this morning and was found to have sepsis 2/2 PNA. - Meets sepsis criteria per CMS guidelines with heart rate of 93 and respiration rate of 36 initially, leukocytosis of 13 and lactate of 2.4 - CXR with patchy left basilar airspace opacity. This could represent atelectasis or pneumonia - lactic acid improved to 2.1 - blood cultures 11/16: 1/2 bottle (+) E coli repeat blood cultures 11/18: negative LFTs improving Liver US: no signs of obstruction - ID consulted given Ceftri IV discharge on: Cephalexin 500mg BID x 14 days, Probiotics daily Hypoxia - Likely secondary to volume overload secondary to IV fluids - Lasix 40 mg IV given Check echo: EF 50 to 60%, grade 1 diastolic dysfunction - oxygen supplement weaned off to 2 L via NC - continue Lasix 40mg po daily, then STOP when weaned off oxygen, when patient reaches euvolemia- likely in 3 days repeat BMP in 2-3 days, monitor while on Lasix Weakness In the setting of infection -CT head without acute intracranial abnormality -PT/OT evaluations ordered - weakness improving -Patient lives alone, [facility] - continue PT/OT Fall precautions Paroxysmal atrial fibrillation: was in RVR while admitted, resolved likely from Sepsis, Volume overload - management of sepsis per #1 - continue Metoprolol Supratherapeutic INR of 3.8 on admission - INR now 2.5 usually on coumadin 2.5mg x 6 days, then 5mg x 1 day a week - change to coumadin 2.5mg daily - daily INR until stable, then monitor closely Elevated liver enzymes: Tbili of 2.1, AST of 443, ALT of 177, alk phos of 121 then normalized - liver US: 1. Heterogeneous appearance of the liver with subtle marginal nodularity may reflect underlying cirrhotic liver disease. No ascites. Correlate with clinical history and LFTs. 2. Cholelithiasis and gallbladder sludge without sonographic evidence of acute cholecystitis. 3. No biliary ductal dilation. - GI consulted: viral and autoimmune serologies ordered: pending, ff up - ff up as outpatient with GI GERD (gastroesophageal reflux disease): Continue PPI Disposition d/c to [facility] today ff up with PCP in 1 week as outlined in DC instructions ff up with GI in 2 weeks Total Time Total Time Spent Total Time Spent (In Minutes): 55 minutes Discharge Plan Discharge Items Patient Disposition: Transfer Residential Fac Reason For Visit: SEPSIS 01/01 PNA Discharge Diagnosis: SEPSIS SECONDARY TO E COLI BACTEREMIA, LIKELY BILIARY SOURCE Activity: Resume your previous activity Lifting: Wait until after follow-up appointment Exercise/Sports: Wait until after follow-up appointment Driving/Machine Use: NO DRIVING Non-emergency contact: Primary Care Provider Call non-emergency contact if: you have any medication questions, your symptoms worsen and you have a fever Diet: Heart Healthy Addtl Attending Provider Instructions: ALWAYS USE OXYGEN VIA NASAL CANNULA- 2 LITERS. WEAN OFF ACCORDINGLY WHILE BEING DIURESED ADEQUATELY. DISCHARGED ON LASIX 40MG PO DAILY. TITRATE AND DISCONTINUE ACCORDINGLY. MOST LIKELY CAN BE STOPPED IN 3 DAYS. MONITOR LUNG SOUNDS AND VOLUME STATUS CLOSELY. CHECK BASIC METABOLIC PROFILE IN 2-3 DAYS. CHECK INR DAILY AND TITRATE COUMADIN ACCORDINGLY. FOLLOW UP WITH PRIMARY CARE PHYSICIAN MAINE SULLIVAN AT [facility] ON 11/29/19, AT 10:15AM. FOLLOW UP WITH [facility], [place] [address] [place] [address]. PLEASE REFER TO ACCOMPANYING HOSPITAL DISCHARGE SUMMARY FOR FURTHER DETAILS. Pending Studies at Discharge: Yes Studies:: INR DAILY UNTIL STABLE, BMP IN 2-3 DAYS, THEN MONITOR WHILE ON LASIX Stand-Alone Forms: [employer], Smoking Cessation Skilled Items Patient informed of condition?: Yes DNR: No Discharge Level of Care: Skilled Communicable Disease: No Discharge Prognosis: Improving Lines: None Urinary Catheter: No Medications and DC Order Prescriptions: New metoprolol succinate 25 mg Tablet Extended Release 24 Hr 25 mg PO DAILY 30 Days Qty: 30 RF: 2 cephalexin 500 mg capsule 500 mg PO Q12H 14 Days Qty: 28 RF: 0 Culturelle 10 billion cell capsule 1 cap PO DAILY Qty: 30 RF: 0 furosemide [Lasix] 40 mg tablet 40 mg PO DAILY Qty: 10 RF: 1 Continued omeprazole 20 mg capsule,delayed release(DR/EC) 20 mg PO DAILY RF: 0 gabapentin 100 mg capsule 200 mg PO HS RF: 0 aspirin [Aspirin Low Dose] 81 mg Tablet,Delayed Release (Dr/Ec) 81 mg PO DAILY RF: 0 Centrum Silver 0.4-300-250 mg-mcg-mcg Tablet 1 tab PO DAILY RF: 0 Changed warfarin 2.5 mg tablet 2.5 mg PO DAILY Qty: 0 RF: 0 Discontinued warfarin 2.5 mg tablet 5 mg PO TH@1600 RF: 0 metoprolol succinate 25 mg tablet extended release 24 hr 12.5 mg PO DAILY RF: 0 Discharge Orders: Discharge Order (Routine); Ordered 11/22/19 Ordered By: Marc Moon Admission Data Admit Date/Time: 11/16/19 08:58 Attending Provider: Marc Moon Admit Provider: Marc Moon Primary Care Provider: Caroline Liu Other Providers: Marc Moon ; Travis Ferrari ; Varsha Vivas
[2019-11-22] MEDS: cefTRIAXone SODIUM 1,000 MG in DEXTROSE 5% 50 ML IV SCH (13:42)
[2019-11-22 16:14] LABS: Anti Mitochondrial Antibody NEGATIVE (NEGATIVE); Anti Nuclear Antibody Screen POSITIVE (NEGATIVE); CMV IgM Antibody <30.00 AU/mL; Hepatitis B Core Antibody Total NON-REACTIVE (NON-REACTIVE); Parvovirus IgG 5.7 (<0.9); Parvovirus IgM 0.1 (<0.9); Smooth Muscle Antibody POSITIVE (NEGATIVE)
[2019-11-24 08:16] LABS: ANA Pattern Nuclear, Speckled
== END 2019-11-22 15:12 | DRG 871 ==
LOC: ED 06:46 → 2W 08:58

== ENCOUNTER 2021-07-04 21:19 | Inpatient (IN) ==
[2021-07-04] MEDS ORDERED: ACETAMINOPHEN 500 MG TAB PO STA (21:46)
[2021-07-04] MEDS ORDERED: CEFEPIME 2,000 MG/20 ML VIAL IV STA (21:46)
[2021-07-04] MEDS ORDERED: SODIUM CHLORIDE 0.9% 1000ML 250 ML IV ONE (21:48)
--- NOTE | 2021-07-04 21:52 | Emergency Department Note ---
Impression & Plan Hypoxia, Weakness, Pneumonia, CHF (congestive heart failure), Leukocytosis ED Provider Note NAME: ÓSCAR VEGA AGE: 86 SEX: F : 1935 ARRIVES VIA: Ambulance INFORMANT: [Patient][son] ED PROVIDER(S): [Randolph Muñoz MD] CHIEF COMPLAINT: Weakness HISTORY OF PRESENT ILLNESS: The patient is an 86-year-old female presents to the ER with several days of increasing weakness and fatigue. She has been short of breath with exertion and her O2 saturation dropped today in the low 80s with just 10 feet of walking. The patient denies any chest pain. There has been no cough. No stuffy nose or sore throat. No vomiting. She does have some diarrhea but this is not abnormal really. She denies urinary complaints or abdominal pain. The patient has a history of septicemia and bacteremia. She has not been vaccinated against COVID-19 and has not had this disease. She is brought by EMS today, her son is at bedside. REVIEW OF SYSTEMS: See HPI for pertinent positives and negatives. A total of ten systems were reviewed and were otherwise negative. PMHx/PSHx: See Below SOCIAL HISTORY: See Below. PHYSICAL EXAM: GENERAL: Patient is in no acute distress. HEENT: No acute trauma, normocephalic atraumatic, mucous membranes moist, no nasal congestion, no scleral icterus. NECK: No stridor, no adenopathy, no meningismus, trachea is midline. LUNGS: No respiratory distress. Crackles bilaterally, worse on the right. No wheezing. There is an increased respiratory rate. A cough was noted with exhalation. HEART: Subtle systolic murmur, regular rhythm, regular rate. ABDOMEN: Soft, nontender, bowel sounds positive, no hernias, no peritonitis. EXTREMITIES: No cyanosis or edema, full range of motion of all the joints without pain or difficulty, no signs for acute trauma. NEUROLOGIC: Oriented x 3, no acute motor or sensory deficits, no focal weakness. SKIN: No rash, no jaundice, no diaphoresis. Warm to the touch. DIFFERENTIAL DIAGNOSIS: Sepsis, UTI, pneumonia, metabolic abnormality, electrolyte abnormalities, COVID- 19, cardiac sources, cellulitis, UTI, bacteremia, intracerebral event, toxicologic etiology, neurologic event, as well as other pathologies. EMERGENCY DEPARTMENT COURSE/PROCEDURES: ECG: Indication was shortness of breath. ECG shows a normal sinus rhythm with a rate of 90. There is an old septal infarct. There is no ST elevation, no PVCs. The QTc is 486. Continuous Cardiac Monitoring: An order was placed for continuous cardiac monitoring. The monitor shows a rate of 95 with normal sinus rhythm. Critical Care Note: I have personally spent 39 minutes of critical care time in the direct management of this patient. This includes bedside care, interpretation of diagnostic studies, and testing, discussion with consultants, patient, and family members, and other required patient management activities. This 39 minutes is in excess of all separately billable procedures. MEDICAL DECISION MAKING: There is a moderate leukocytosis which would be consistent with infection. No worrisome anemia. There is a normal platelet count. INR is 2.1, consistent with her Coumadin use. No kidney failure or significant electrolyte abnormality. Lactic acid level is somewhat elevated consistent with infection/sepsis. No worrisome liver enzyme elevation. BNP is elevated consistent with fluid overload. ECG shows a sinus rhythm, no obvious acute ischemia. Cardiac enzyme testing x1 is slightly elevated consistent with cardiac injury, strain or potentially mismatch. Urinalysis does not show infection. Covid testing returned negative. Chest x-ray shows what appears to be heart failure with a potential left lower lung infiltrate. On exam, the patient had an increased respiratory rate. She was hypoxic without O2 supplementation. She had crackles bilaterally. The patient was given a very small amount of IV saline. She was given IV Lasix 40 mg. She received a DuoNeb, oral Tylenol, IV cefepime. The patient seems to be resting comfortably. She remains tachypneic though. Her blood pressure has remained adequate. Hospitalization is warranted. The cause of her hypoxia is likely fluid overload as well as pneumonia. I did speak to the patient at length. I spoke with her son. I spoke with the on-call hospitalist as well as the pillowcase turner. Past Med/Surg History Medical History (Updated 07/04/21 @ 23:55 by Randolph Muñoz MD) GERD (gastroesophageal reflux disease) History of TIA (transient ischemic attack) Paroxysmal atrial fibrillation Stroke-like symptoms Surgical History History of appendectomy Family History Other Family history non-contributory Social History Smoking Status: Unknown if ever smoked Second Hand Exposure: No; Hx Alcohol Use: No Hx Substance Use: No Communication Ability: Effective Beliefs That Will Affect Care: None marital status: / Current Living Situation: Alone How many Children do You have: 2 Feels Safe at Home: Yes Assistive Devices: Glasses and Oxygen - Continuous Allergies Allergies Allergy/AdvReac Type Severity Reaction Status Date / Time Sulfa (Sulfonamide Allergy Mild rash Verified 07/04/21 22:17 Antibiotics) Macrolide Antibiotics Allergy Unknown Unknown Verified 07/04/21 22:17 niacin Allergy Unknown Unknown Verified 07/04/21 22:17 rosuvastatin [From Crestor] Allergy Unknown Unknown Verified 07/04/21 22:17 cephalexin AdvReac Intermediate Weakness Verified 07/04/21 22:17 gabapentin AdvReac Intermediate unknown Verified 07/04/21 22:17 risedronate sodium AdvReac Intermediate unknown Verified 07/04/21 22:17 Home Meds Home Medications Medication Instructions Recorded Confirmed aspirin 81 mg tablet,delayed 81 mg PO DAILY 11/16/19 07/04/21 release (Aspirin Low Dose) gabapentin 100 mg capsule 200 mg PO HS 11/16/19 07/04/21 cuicnevw-mdp-njksq acid 0.4 1 tab PO DAILY 11/16/19 07/04/21 mg-lycopene 300 mcg-lutein 250 mcg tablet (Centrum Silver) omeprazole 20 mg capsule,delayed 20 mg PO DAILY 11/16/19 07/04/21 release albuterol sulfate 90 mcg/actuation 2 puff INHALATION Q4H PRN 07/04/21 07/04/21 aerosol inhaler warfarin 2.5 mg tablet See Rx Instructions .ROUTE .COMPLEX 07/04/21 07/04/21 Previous Rx's Medication Instructions Recorded metoprolol succinate 25 mg 25 mg PO DAILY 30 Days #30 tab 11/22/19 tablet,extended release 24 hr Results & Data (ED) Vital Signs Vital Signs - 24 hr 07/04/21 21:13 07/04/21 21:27 07/04/21 21:30 Temperature 37.9 C H Temperature Source Oral Pulse Rate 85 95 H 95 H Pulse Rate from SpO2 Sensor 83 95 H Pulse Rhythm Regular Respiratory Rate 26 H 38 H 42 H Respiratory Effort / Characteristics Non-Labored Spontaneous Respiratory Depth Shallow Blood Pressure 123/90 130/71 130/71 Blood Pressure Mean 101 90 90 Blood Pressure Position Lying Pulse Oximetry 94 93 94 Oxygen Delivery Method Nasal Cannula Oxygen Flow Rate 4 Sepsis New/Unexplained Change in Mental Status No Sepsis Action Taken by Nursing No Action Required 07/04/21 21:51 07/04/21 22:00 07/04/21 22:30 Temperature Temperature Source Pulse Rate 94 H 91 H Pulse Rate from SpO2 Sensor 94 H 91 H Pulse Rhythm Respiratory Rate 37 H 35 H Respiratory Effort / Characteristics Respiratory Depth Blood Pressure 125/68 117/62 Blood Pressure Mean 87 80 Blood Pressure Position Pulse Oximetry 93 95 Oxygen Delivery Method Nasal Cannula Oxygen Flow Rate 4 Sepsis New/Unexplained Change in Mental Status Sepsis Action Taken by Nursing 07/04/21 23:00 07/04/21 23:30 Temperature Temperature Source Pulse Rate 88 83 Pulse Rate from SpO2 Sensor 88 83 Pulse Rhythm Respiratory Rate 42 H 27 H Respiratory Effort / Characteristics Respiratory Depth Blood Pressure 111/63 107/64 Blood Pressure Mean 79 78 Blood Pressure Position Pulse Oximetry 97 99 Oxygen Delivery Method Nasal Cannula Nasal Cannula Oxygen Flow Rate 4 4 Sepsis New/Unexplained Change in Mental Status Sepsis Action Taken by [facility] Medications Current Medication List: was personally reviewed by me Laboratory Data Attestation: I reviewed the patient's lab results. Result diagrams: 07/04/21 21:26 07/04/21 21:26 Lab Results 07/04/21 07/04/21 07/04/21 Range/Units 21:26 21:26 21:29 WBC 15.97 H (4.8-10.8) K/uL RBC 3.87 L (4.2-5.4) M/uL Hgb 11.8 L (12.0-16.0) g/dL Hct 35.8 L (37-47) % MCV 92.5 (80-100) fL MCH 30.5 (25-34) pg MCHC 33.0 (32-36) g/dL RDW Std Deviation 47.6 H (36.4-46.3) fL RDW Coeff of Lobo 14.0 (11.5-14.5) % Plt Count 249 (130-400) K/uL MPV 10.0 (7.4-10.4) fL Immature Gran % (Auto) 0.4 % Neut % (Auto) 71.1 % Lymph % (Auto) 9.2 % [place] % (Auto) 15.5 % Eos % (Auto) 3.5 % Baso % (Auto) 0.3 % Neut # (Auto) 11.37 H (1.4-6.5) K/uL Lymph # (Auto) 1.47 (1.2-3.4) K/uL [place] # (Auto) 2.47 H (0.11-0.59) K/uL Eos # (Auto) 0.56 H (0-0.5) K/uL Baso # (Auto) 0.04 (0-0.2) K/uL Immature Gran # (Auto) 0.06 H (0.00-0.02) K/uL PT (9.0-12.0) Seconds INR (0.9-1.1) APTT (21.0-31.0) Seconds PTT Ratio Sodium 134 L (136-145) mmol/L Potassium 3.8 (3.5-5.1) mmol/L Chloride 101 (98-107) mmol/L Carbon Dioxide 27 (21-32) mmol/L Anion Gap 6.0 (3-11) BUN 20 H (7-18) mg/dl Creatinine 0.80 (0.6-1.2) mg/dl Est Cr Clr Drug Dosing Not Reportable Est GFR ( Amer) 78.5 ml/min Est GFR (Non-Af Amer) 67.7 ml/min BUN/Creatinine Ratio 24.6 H (10-20) Glucose 150 H (70-99) mg/dl Lactate (0.4-2.0) mmol/L Calcium 8.7 (8.5-10.1) mg/dl Magnesium 1.9 (1.8-2.4) mg/dl Total Bilirubin 0.4 (0.2-1) mg/dl AST 24 (15-37) U/L ALT 16 (12-78) U/L Alkaline Phosphatase 87 (45-117) U/L Troponin I 0.253 H* (0-0.045) ng/ml NT-Pro-B Natriuret Pep 3633 H (0-1800) pg/ml Total Protein 6.5 (6.4-8.2) gm/dl Albumin 2.1 L (3.4-5.0) gm/dl Globulin 4.4 H (2.5-4.0) gm/dl Albumin/Globulin Ratio 0.5 L (0.9-2) Urine Color Dark Yellow Urine Appearance Clear (Clear) Urine pH 6.5 (4.5-7.5) Ur Specific Arlee 1.020 (1.000-1.030) Urine Protein 2+ H (Negative) Urine Glucose (UA) Negative (Negative) Urine Ketones Negative (Negative) Urine Blood Negative (Negative) Urine Nitrite Negative (Negative) Urine Bilirubin Negative (Negative) Urine Urobilinogen Negative (Negative) Ur Leukocyte Esterase Trace H (Negative) Urine WBC (Auto) 5-10 H (0-5) /hpf Urine RBC (Auto) 0-4 (0-4) /hpf U Hyaline Cast (Auto) 1-5 (0-5) /lpf U Epithel Cells (Auto) >30 H (0-5) /lpf Urine Bacteria (Auto) Negative (Negative) Ur Renal Epithelial Cell 0-5 (0-5) /lpf COVID-19 Eval Order SARS-CoV-2 (PCR) (Negative) 07/04/21 07/04/21 07/04/21 Range/Units 21:51 21:51 22:06 WBC (4.8-10.8) K/uL RBC (4.2-5.4) M/uL Hgb (12.0-16.0) g/dL Hct (37-47) % MCV (80-100) fL MCH (25-34) pg MCHC (32-36) g/dL RDW Std Deviation (36.4-46.3) fL RDW Coeff of Lobo (11.5-14.5) % Plt Count (130-400) K/uL MPV (7.4-10.4) fL Immature Gran % (Auto) % Neut % (Auto) % Lymph % (Auto) % [place] % (Auto) % Eos % (Auto) % Baso % (Auto) % Neut # (Auto) (1.4-6.5) K/uL Lymph # (Auto) (1.2-3.4) K/uL Os[place] # (Auto) (0.11-0.59) K/uL Eos # (Auto) (0-0.5) K/uL Baso # (Auto) (0-0.2) K/uL Immature Gran # (Auto) (0.00-0.02) K/uL PT (9.0-12.0) Seconds INR (0.9-1.1) APTT (21.0-31.0) Seconds PTT Ratio Sodium (136-145) mmol/L Potassium (3.5-5.1) mmol/L Chloride (98-107) mmol/L Carbon Dioxide (21-32) mmol/L Anion Gap (3-11) BUN (7-18) mg/dl Creatinine (0.6-1.2) mg/dl Est Cr Clr Drug Dosing Est GFR ( Amer) ml/min Est GFR (Non-Af Amer) ml/min BUN/Creatinine Ratio (10-20) Glucose (70-99) mg/dl Lactate 2.2 H* (0.4-2.0) mmol/L Calcium (8.5-10.1) mg/dl Magnesium (1.8-2.4) mg/dl Total Bilirubin (0.2-1) mg/dl AST (15-37) U/L ALT (12-78) U/L Alkaline Phosphatase (45-117) U/L Troponin I (0-0.045) ng/ml NT-Pro-B Natriuret Pep (0-1800) pg/ml Total Protein (6.4-8.2) gm/dl Albumin (3.4-5.0) gm/dl Globulin (2.5-4.0) gm/dl Albumin/Globulin Ratio (0.9-2) Urine Color Urine Appearance (Clear) Urine pH (4.5-7.5) Ur Specific Arlee (1.000-1.030) Urine Protein (Negative) Urine Glucose (UA) (Negative) Urine Ketones (Negative) Urine Blood (Negative) Urine Nitrite (Negative) Urine Bilirubin (Negative) Urine Urobilinogen (Negative) Ur Leukocyte Esterase (Negative) Urine WBC (Auto) (0-5) /hpf Urine RBC (Auto) (0-4) /hpf U Hyaline Cast (Auto) (0-5) /lpf U Epithel Cells (Auto) (0-5) /lpf Urine Bacteria (Auto) (Negative) Ur Renal Epithelial Cell (0-5) /lpf COVID-19 Eval Order Covid19 at [facility] SARS-CoV-2 (PCR) NEGATIVE (Negative) 07/04/21 Range/Units 22:54 WBC (4.8-10.8) K/uL RBC (4.2-5.4) M/uL Hgb (12.0-16.0) g/dL Hct (37-47) % MCV (80-100) fL MCH (25-34) pg MCHC (32-36) g/dL RDW Std Deviation (36.4-46.3) fL RDW Coeff of Lobo (11.5-14.5) % Plt Count (130-400) K/uL MPV (7.4-10.4) fL Immature Gran % (Auto) % Neut % (Auto) % Lymph % (Auto) % [place] % (Auto) % Eos % (Auto) % Baso % (Auto) % Neut # (Auto) (1.4-6.5) K/uL Lymph # (Auto) (1.2-3.4) K/uL [place] # (Auto) (0.11-0.59) K/uL Eos # (Auto) (0-0.5) K/uL Baso # (Auto) (0-0.2) K/uL Immature Gran # (Auto) (0.00-0.02) K/uL PT 19.8 H (9.0-12.0) Seconds INR 2.1 H (0.9-1.1) APTT 37.9 H (21.0-31.0) Seconds PTT Ratio 1.4 Sodium (136-145) mmol/L Potassium (3.5-5.1) mmol/L Chloride (98-107) mmol/L Carbon Dioxide (21-32) mmol/L Anion Gap (3-11) BUN (7-18) mg/dl Creatinine (0.6-1.2) mg/dl Est Cr Clr Drug Dosing Est GFR ( Amer) ml/min Est GFR (Non-Af Amer) ml/min BUN/Creatinine Ratio (10-20) Glucose (70-99) mg/dl Lactate (0.4-2.0) mmol/L Calcium (8.5-10.1) mg/dl Magnesium (1.8-2.4) mg/dl Total Bilirubin (0.2-1) mg/dl AST (15-37) U/L ALT (12-78) U/L Alkaline Phosphatase (45-117) U/L Troponin I (0-0.045) ng/ml NT-Pro-B Natriuret Pep (0-1800) pg/ml Total Protein (6.4-8.2) gm/dl Albumin (3.4-5.0) gm/dl Globulin (2.5-4.0) gm/dl Albumin/Globulin Ratio (0.9-2) Urine Color Urine Appearance (Clear) Urine pH (4.5-7.5) Ur Specific Arlee (1.000-1.030) Urine Protein (Negative) Urine Glucose (UA) (Negative) Urine Ketones (Negative) Urine Blood (Negative) Urine Nitrite (Negative) Urine Bilirubin (Negative) Urine Urobilinogen (Negative) Ur Leukocyte Esterase (Negative) Urine WBC (Auto) (0-5) /hpf Urine RBC (Auto) (0-4) /hpf U Hyaline Cast (Auto) (0-5) /lpf U Epithel Cells (Auto) (0-5) /lpf Urine Bacteria (Auto) (Negative) Ur Renal Epithelial Cell (0-5) /lpf COVID-19 Eval Order SARS-CoV-2 (PCR) (Negative) Administered Medications Discontinued Medications Acetaminophen (Acetaminophen 500 Mg Tab) 1,000 mg PO NOW STA Stop: 07/04/21 21:47 Last Admin: 07/04/21 22:37 Dose: 1,000 mg Documented by: [id number] Albuterol (Albut/Ipratrop 3mg/0.5mg Neb 3 Ml Vial) 3 ml NEB NOW STA Stop: 07/04/21 23:38 Last Admin: 07/04/21 23:47 Dose: 3 ml Documented by: [id number] Furosemide (Furosemide 40 Mg/4 Ml Vial) 40 mg IV NOW STA Stop: 07/04/21 22:24 Last Admin: 07/04/21 22:37 Dose: 40 mg Documented by: [id number] Cefepime HCl (Maxipime) 2,000 mg in 20 mls @ 5 mls/min IV NOW STA; Protocol Stop: 07/04/21 21:49 Last Admin: 07/04/21 22:40 Dose: 5 mls/min Documented by: [id number] Sodium Chloride (Nss 1000ml) 250 mls @ 999 mls/hr IV .Q16M ONE Stop: 07/04/21 22:03 Last Infusion: 07/04/21 23:35 Dose: 0 mls/hr Documented by: [id number] Admin: 07/04/21 22:40 Dose: 999 mls/hr Documented by: [id number] Imaging Data Attestation: I personally reviewed and interpreted this imaging study as follows: My Impression: Chest x-ray: There is parenchymal congestion consistent with CHF. No pneumothorax. A left lung infiltrate was suspected. The film looks more congested than previous films. Discharge Plan Visit Data Chief Complaint: Weakness Stated Complaint: WEAKNESS/LOW O2 SATT ED Provider: Randolph Muñoz Discharge Problem: Hypoxia, Weakness, Pneumonia, CHF (congestive heart failure), Leukocytosis Patient Disposition: Admitted As Inpatient Condition: Fair Forms Stand Alone Forms: My [facility] Prescriptions Prescriptions: No Action omeprazole 20 mg capsule,delayed release(DR/EC) 20 mg PO DAILY RF: 0 gabapentin 100 mg capsule 200 mg PO HS RF: 0 aspirin [Aspirin Low Dose] 81 mg Tablet,Delayed Release (Dr/Ec) 81 mg PO DAILY RF: 0 Centrum Silver 0.4-300-250 mg-mcg-mcg Tablet 1 tab PO DAILY RF: 0 metoprolol succinate 25 mg Tablet Extended Release 24 Hr 25 mg PO DAILY 30 Days Qty: 30 RF: 2 warfarin 2.5 mg tablet See Rx Instructions .ROUTE .COMPLEX RF: 0 albuterol sulfate 90 mcg/actuation HFA aerosol inhaler 2 puff INHALATION Q4H PRN (Reason: Shortness Of Breath) RF: 0 Referrals Referrals: Caroline Liu MD [Primary Care Provider] -
[2021-07-04 21:55] LABS: Basophils # (auto) 0.04 K/uL (0-0.2); Basophils % (auto) 0.3 %; Eosinophils # (auto) 0.56 K/uL (0-0.5); Eosinophils % (auto) 3.5 %; Hematocrit (blood only) 35.8 % (37-47); Hemoglobin 11.8 g/dL (12.0-16.0); Immature Granulocytes # (auto) 0.06 K/uL (0.00-0.02); Immature Granulocytes % (auto) 0.4 %; Lymphocytes # (auto) 1.47 K/uL (1.2-3.4); Lymphocytes % (auto) 9.2 %; Mean Corpuscular Hemoglobin 30.5 pg (25-34); Mean Corpuscular Volume 92.5 fL (80-100); Monocytes # (auto) 2.47 K/uL (0.11-0.59); Monocytes % (auto) 15.5 %; Neutrophils # (auto) 11.37 K/uL (1.4-6.5); Neutrophils % (auto) 71.1 %; Platelet Count 249 K/uL (130-400); RDW Standard Deviation 47.6 fL (36.4-46.3); Red Blood Count 3.87 M/uL (4.2-5.4); White Blood Count 15.97 K/uL (4.8-10.8)
[2021-07-04 22:00] LABS: Appearance Urine Clear (Clear); Bacteria Urine Automated Negative (Negative); Bilirubin Urine Negative (Negative); Blood Urine Negative (Negative); Color Urine Dark Yellow; Epithelial Cell Urine Auto >30 /lpf (0-5); Glucose Urine UA Negative (Negative); Ketones Urine Negative (Negative); Leukocyte Esterase Urine Trace (Negative); Nitrite Urine Negative (Negative); Protein Urine 2+ (Negative); RBC Urine Automated 0-4 /hpf (0-4); Urobilinogen Urine Negative (Negative); pH Urine 6.5 (4.5-7.5)
[2021-07-04 22:03] LABS: Renal Epithelial Cells Urine 0-5 /lpf (0-5)
[2021-07-04 22:05] LABS: Alanine Aminotransferase 16 U/L (12-78); Albumin Level 2.1 gm/dl (3.4-5.0); Aspartate Aminotransferase 24 U/L (15-37); BUN Creatinine Ratio 24.6 (10-20); Blood Urea Nitrogen 20 mg/dl (7-18); Calcium 8.7 mg/dl (8.5-10.1); Carbon Dioxide 27 mmol/L (21-32); Chloride 101 mmol/L (98-107); Est GFR (African American) 78.5 ml/min; Est GFR (Non-African American) 67.7 ml/min; Glucose 150 mg/dl (70-99); Magnesium 1.9 mg/dl (1.8-2.4); Potassium 3.8 mmol/L (3.5-5.1); Sodium 134 mmol/L (136-145)
[2021-07-04 22:18] LABS: Albumin Globulin Ratio 0.5 (0.9-2); Alkaline Phosphatase 87 U/L (45-117); Bilirubin,Total 0.4 mg/dl (0.2-1); Globulin 4.4 gm/dl (2.5-4.0); NT Pro B Type Natriuretic Pept 3633 pg/ml (0-1800); Total Protein 6.5 gm/dl (6.4-8.2); Troponin I 0.253 ng/ml (0-0.045)
[2021-07-04] MEDS ORDERED: FUROSEMIDE 40 MG/4 ML VIAL IV STA (22:23)
[2021-07-04 23:14] LABS: INR 2.1 (0.9-1.1); Partial Thromboplastin Ratio 1.4; Partial Thromboplastin Time 37.9 Seconds (21.0-31.0); Prothrombin Time 19.8 Seconds (9.0-12.0)
[2021-07-04] MEDS ORDERED: ALBUT/IPRATROP 3MG/0.5MG NEB 3 ML VIAL NEB STA (23:37)
[2021-07-05] MEDS ORDERED: CONSULT PHARMACY STA (00:35)
[2021-07-05] MEDS ORDERED: ALBUTEROL HFA 8 GM INHALER INH PRN (01:51)
[2021-07-05] MEDS ORDERED: XOPENEX/ATROVENT 1.25mg/0.5MG NEB COMBO NEB SCH (01:51)
[2021-07-05] MEDS ORDERED: CONSULT PHARMACY PRN (02:00)
[2021-07-05] MEDS ORDERED: CEFEPIME CONSULT ACTIVE PRN (02:15)
[2021-07-05] MEDS: IPRATROPIUM BROMIDE NEB SOLN 0.02% 2.5 ML VIAL INH SCH ×4 (02:16→19:18)
[2021-07-05] MEDS: LEVALBUTEROL 1.25MG/0.5ML NEB INH SCH ×4 (02:17→19:18)
[2021-07-05] MEDS: DOXYCYCLINE HYCLATE 100 MG in DEXTROSE 5% 100 ML IV SCH ×3 (02:24→21:49)
--- NOTE | 2021-07-05 02:37 | History and Physical Report ---
DATE OF ADMISSION: 07/05/2021. CHIEF COMPLAINT: Shortness of breath and weakness. HISTORY OF PRESENT ILLNESS: This is an 86-year-old female with past medical history significant for prediabetes, paroxysmal atrial fibrillation, diastolic CHF, irritable bowel syndrome, GERD, history of protein calorie malnutrition, history of gallbladder stones, history of chronic kidney disease stage III, history of cystocele, uterine prolapse, senile osteoporosis, sensorineural hearing loss on the right side, history of pathological fracture of the vertebra, history of TIA. Presents with shortness of breath. The patient's outpatient records show she recently had PFTs and showed severe interstitial lung disease and she was supposed to follow up with pulmonary. She says she uses oxygen 2 liters all the time at home, sometimes 2.5 liters. She says she ambulates with a walker. The last 2 days she is getting more short of breath. She is not able to walk more than few feet. Denies any cough, denies any fever or chills. Denies any chest pain. No nausea, no abdominal pain. Says appetite is good and she is eating fine and she swallows okay. Denies any headache. No blurred visions, no earache. She has runny nose for the last 2 weeks. No sore throat. No abdominal pain. Normal bowel and bladder movements. She says she has noticed some blood in the urine today morning. No blood in the stools or black stools. No swelling in the legs. Currently, resting comfortably, requiring 4 liters oxygen She has temp spike in the ER. She lives alone and son lives next door. She did not had COVID vaccine. ALLERGIES: SULFA ANTIBIOTICS, SEMAGLUTIDE, CRESTOR, CEPHALEXIN, GABAPENTIN, RISEDRONATE. PAST MEDICAL HISTORY: As mentioned above. PAST SURGICAL HISTORY: Colonoscopy, removal of ruptured appendix. MEDICATIONS: The patient is on albuterol 2 puffs q. 4 hours p.r.n., aspirin 81 mg p.o. daily, Centrum Silver one tablet p.o. daily, gabapentin 200 mg p.o. at bedtime, metoprolol succinate 25 mg p.o. daily, omeprazole 20 mg p.o. daily, warfarin as directed. FAMILY HISTORY: Significant for mother has arthritis; father has prostate cancer, emphysema; mother has hypertension; sister has emphysema. SOCIAL HISTORY: , lives alone. Son lives next door. Smoked in high school. No alcohol use. No drug use. REVIEW OF SYSTEMS: As per HPI. Rest of the review of systems is negative. PHYSICAL EXAMINATION: GENERAL: The patient is old and frail, not in acute distress. VITAL SIGNS: Temperature T-max 37.9, pulse 82, respiratory rate 23, blood pressure 103/64, oxygen 96% on 4 liters. HEENT: Pupils equal, round and reactive to light. Oral mucosa moist. NECK: No JVD, no neck masses. CARDIOVASCULAR: S1 and S2 heard. Regular rate and rhythm. No murmur, no gallop. RESPIRATORY SYSTEM: Normal AP diameter. No accessory muscle use. Bilateral coarse rhonchi heard. No wheezing. ABDOMEN: Soft, bowel sounds present, nontender, no distention. CENTRAL NERVOUS SYSTEM: Cranial nerves II-XII grossly intact, nonfocal. EXTREMITIES: No edema, no erythema. LABORATORY DATA: WBC 15.9, hemoglobin 11.8, hematocrit 35.8, platelets 249. PT 19.8, INR 2.1, APTT 27.9. Sodium 134, potassium 3.8, chloride 101, bicarbonate 27, BUN 20, creatinine 0.8, serum glucose 150. Lactate 1.3, calcium 8.7, magnesium 1.9, total bilirubin 0.4, AST 24, ALT 26, alkaline phosphatase 87. Troponin 1 of 0.25. BNP 3600. Procalcitonin 0.2. Urinalysis, trace leukocyte esterase, +2 protein. SARS-CoV-2 PCR negative. IMAGING DATA: Chest x-ray, bilateral congestion versus infiltrates. EKG: Normal sinus rhythm at a rate of 90, nonspecific T-wave abnormalities. ASSESSMENT AND PLAN: This is an 86-year-old female who presents with shortness of breath. 1. Shortness of breath: Kevpa-gq-klmlrrd respiratory failure, interstitial lung disease flare. The patient had recently PFTs showing severe interstitial lung disease. She is chronically on 2 liters oxygen, currently requiring 4 liters. Possible pneumonia. The patient had a temperature spike and also leukocytosis. Empirically starting on rocephin and doxycycline. Will also do nebs around the clock and consult pulmonary in the a.m. for further recommendations. 2. Possible iuzql-at-fgzocij diastolic congestive heart failure: The patient does not have any lower extremity edema, but possible congestion on CXR. ER gave [address] on IV Lasix 20 b.i.d. and follow echocardiogram. Consult cardiology in the a.m. 3. Elevated troponin: Probably non-ST elevated secondary to demand ischemia. Will follow serial enzymes and follow echocardiogram. The patient currently does not complain of chest pain, asymptomatic. 4. Paroxysmal atrial fibrillation: On Toprol-XL and Coumadin. INR therapeutic, follow the PT/INR. 5. Gastroesophageal reflux disease: Continue omeprazole. 6. Prediabetes: Follow HbA1c levels. 7. Chronic kidney disease stage III: Baseline creatinine at 1 to 1.1, currently creatinine of 0.8. The patient is getting diuretics. We will follow the labs. 8. Deep venous thrombosis prophylaxis: On Coumadin. INR therapeutic. DISPOSITION: Closely monitor in the tele floor. PT/OT prior to discharge. Social service to help with discharge planning. CODE STATUS: DNR/DNI as per my discussion with the patient. The patient wanted to be DNR even if there was a chance of recovery as per my discussion with the patient. Addendum: Started on Cardizem drip as patient went into rapid a fib but was stopped a she converted back to sinus rhythm. Holding Lasix until further evaluation in am. Job ID[facility] [id number] [facility]
[2021-07-05] MEDS ORDERED: STAT IV Infusion **Titration per Protocol STA (03:25)
[2021-07-05] MEDS ORDERED: dilTIAZem HCl 5 MG/ML 5 ML VIAL IV STA (03:25)
[2021-07-05] MEDS ORDERED: dilTIAZem HCL 125 MG in DEXTROSE 5% 100 ML IV SCH (03:35)
[2021-07-05 05:56] LABS: Basophils # (auto) 0.06 K/uL (0-0.2); Basophils % (auto) 0.6 %; Eosinophils # (auto) 0.31 K/uL (0-0.5); Eosinophils % (auto) 2.8 %; Hemoglobin 12.8 g/dL (12.0-16.0); Immature Granulocytes # (auto) 0.01 K/uL (0.00-0.02); Immature Granulocytes % (auto) 0.1 %; Lymphocytes # (auto) 1.36 K/uL (1.2-3.4); Lymphocytes % (auto) 12.5 %; Mean Corpuscular Hemoglobin 30.5 pg (25-34); Mean Corpuscular Hgb Conc 32.8 g/dL (32-36); Mean Corpuscular Volume 93.1 fL (80-100); Mean Platelet Volume 9.7 fL (7.4-10.4); Monocytes # (auto) 1.89 K/uL (0.11-0.59); Monocytes % (auto) 17.4 %; Neutrophils # (auto) 7.26 K/uL (1.4-6.5); Neutrophils % (auto) 66.6 %; Platelet Count 250 K/uL (130-400); Red Blood Count 4.19 M/uL (4.2-5.4); White Blood Count 10.89 K/uL (4.8-10.8)
[2021-07-05 06:05] LABS: INR 2.4 (0.9-1.1); Prothrombin Time 23.1 Seconds (9.0-12.0)
[2021-07-05 06:14] LABS: BUN Creatinine Ratio 19.4 (10-20); Calcium 8.3 mg/dl (8.5-10.1); Creatinine Clr Calc Pharmacy 21.5 ml/min; Est GFR (African American) 66.3 ml/min; Est GFR (Non-African American) 57.2 ml/min; Magnesium 2.5 mg/dl (1.8-2.4); Potassium 3.7 mmol/L (3.5-5.1)
[2021-07-05 06:32] LABS: Troponin I 0.403 ng/ml (0-0.045)
--- NOTE | 2021-07-05 07:12 | XRay Report ---
XR chest 1V portable HISTORY: 86 years-old Female SEPSIS acute sepsis COMPARISON: Chest radiograph 11/21/2019, chest CT 06/23/2008 TECHNIQUE: Portable AP view of the chest FINDINGS: Cardiac silhouette is enlarged. Calcified plaque of the thoracic aorta. Chronic interstitial coarseni ng with progressively worsened bilateral reticular opacities, left greater than right. Blunting of th e costophrenic angles with asymmetric left lung base opacities. Degenerative changes of the shoulders and spine. IMPRESSION: 1. Chronic interstitial lung disease with new/progressive reticular interstitial opacities, left grea ter than right. Findings may represent progression of fibrosis, pulmonary edema or superimposed pneum onia. Follow-up recommended. 2. Cardiomegaly. ACT 112: Negative or not required by law. The above report was generated using voice recognition software. It may contain grammatical, syntax o r spelling errors. Electronically signed by: Dutch Abbott M.D. 07/05/2021 7:10 AM
[2021-07-05 07:50] LABS: Estimated Average Glucose 120 mg/dl; Hemoglobin A1C 5.8 % (4.5-5.6)
[2021-07-05] MEDS: PANTOprazole 40 MG TAB PO SCH ×2 (08:03→11:48)
[2021-07-05] MEDS ORDERED: NITROGLYCERIN SL 0.4 MG/TAB TAB ONE (08:27)
--- NOTE | 2021-07-05 08:33 | Hospitalist Progress Note ---
Date of Service July 05, 2021 Assessment & Plan (1) Atypical chest pain: Plan: Chest pain this morning EKG changes showing TWI in lateral leads Elevated trop on admission Consulted Cardiology and discussed patient extensively with Dr Holman Patient on aspirin and warfarin with therapeutic INR. Due to patient's age and comorbidities, advanced lung disease, she is very high risk for cardiac catheterization. Hence, we will manage medically. Chest pain though atypical, is likely due to NSTEMI vs possible due to aspiration Continue aspirin. Trop trend noted Echo showed preserved EF. There is also concern for difficulty swallowing ? aspiration CXR done after onset of chest pain reports increased left lung opacity Unasyn added for possible aspiration pneumonitis. [employer] eval noted Full liquid diet with aspiration precautions (2) Interstitial lung disease: (3) Leukocytosis: (4) Acute and chronic respiratory failure with hypoxia: Plan: Possibly due to interstitial lung disease +/- posssible acute on chronic diastolic heart failure Also concern for aspiration now due to episode this morning Continue oxygen supplementation Pulm recs appreciated (5) Elevated troponin: Plan: As above (6) CHF (congestive heart failure): Plan: As above (7) Paroxysmal atrial fibrillation: Plan: Patient also had paroxysmal A. fib overnight and converted to sinus after Cardizem IV. Continue metoprolol for now. Cardiology recommendation appreciated (8) DVT prophylaxis: Plan: On coumadin PT/OT eval CM consult. Patient reports she lives alone Palliative consult for goals of care due to patient's comorbidities and guarded prognosis Admission and Anticipated Discharge Date Admission Date: July 05, 2021 Subjective 86-year-old female with past medical history significant for prediabetes, paroxysmal atrial fibrillation, diastolic CHF, irritable bowel syndrome, GERD, history of protein calorie malnutrition, history of gallbladder stones, history of chronic kidney disease stage III, history of cystocele, uterine prolapse, senile osteoporosis, sensorineural hearing loss on the right side, history of pathological fracture of the vertebra, history of TIA. Presents with shortness of breath Was admitted overnight Had paroxysmal Afib and got IV Cardizem with conversion to sinus. Called by RN this morning Patient is complaining of chest pain. This started after breakfast. Patient describes chest pain as left-sided associated with possible difficulty with swallowing. EKG at the time showed some TWI in lateral leads, a change from EKG from yesterday night in ER. Also EKG done at 3am also show the same changes. Review of Systems Constitutional: no fever and no chills Eyes: no problem reported Ear, Nose, Mouth, Throat: + dysphagia Respiratory: + dyspnea; no cough Cardiovascular: + chest pain and + dyspnea; no palpitations and no lightheadedness Gastrointestinal: no abdominal pain, no nausea, no vomiting and no diarrhea/loose stools Genitourinary: no dysuria and no urinary frequency Musculoskeletal: Reports "pain all over" Neurologic: no dizziness, no headache(s) and no confusion Psychiatric: no depression and no anxiety Physical Exam Constitutional: + well hydrated; no acute distress Thin frail elderly woman Eyes: PERRL, conjunctivae normal, anicteric sclerae ENMT: external ear and nose normal, oropharynx normal Respiratory: Diminished breath sounds bilaterally Mild crackles Cardiovascular: Rate/Rhythm: regular rate and regular rhythm Vessels: no JVD S1-S2. No pedal edema Gastrointestinal (Abdomen): normal bowel sounds, soft, nontender, no hepatosplenomegaly Musculoskeletal: No pedal edema Neurologic: PERRL, EOMI, accommodation nl, no face palsy, no dysarthria Psychiatric: A+Ox3, euthymic affect Results & Data Results & Data ([facility]) Vital Signs (Past 12 Hours) Vital Signs Temp Pulse Pulse Resp BP BP Pulse Ox 07/05/21 08:02 36.4 C L 84 18 100/63 95 07/05/21 08:00 78 07/05/21 05:08 36.6 C 83 18 103/62 95 07/05/21 03:28 147 H 123/64 97 07/05/21 02:17 76 20 96 07/05/21 02:02 88 07/05/21 01:35 36.6 C 89 28 H 131/75 95 07/05/21 01:00 82 23 103/64 96 07/05/21 00:30 86 21 96/60 L 97 07/05/21 00:00 94 H 31 H 109/57 L 97 07/04/21 23:48 84 24 98 07/04/21 23:30 83 27 H 107/64 99 07/04/21 23:00 88 42 H 111/63 97 07/04/21 22:30 91 H 35 H 117/62 95 07/04/21 22:00 94 H 37 H 125/68 93 07/04/21 21:30 95 H 42 H 130/71 94 07/04/21 21:27 37.9 C H 95 H 38 H 130/71 93 07/04/21 21:13 85 26 H 123/90 94 Laboratory Results Abnormal lab results 07/04/21 07/04/21 07/04/21 Range/Units 21:26 21:26 21:29 WBC 15.97 H (4.8-10.8) K/uL RBC 3.87 L (4.2-5.4) M/uL Hgb 11.8 L (12.0-16.0) g/dL Hct 35.8 L (37-47) % RDW Std Deviation 47.6 H (36.4-46.3) fL Neut # (Auto) 11.37 H (1.4-6.5) K/uL [place] # (Auto) 2.47 H (0.11-0.59) K/uL Eos # (Auto) 0.56 H (0-0.5) K/uL Immature Gran # (Auto) 0.06 H (0.00-0.02) K/uL PT (9.0-12.0) Seconds INR (0.9-1.1) APTT (21.0-31.0) Seconds ABG pH (7.35-7.45) ABG pO2 (80-95) mmHg ABG HCO3 (19-24) mmol/L ABG O2 Saturation (90-95) % ABG Base Excess (-9-1.8) mEq/L Sodium 134 L (136-145) mmol/L BUN 20 H (7-18) mg/dl BUN/Creatinine Ratio 24.6 H (10-20) Glucose 150 H (70-99) mg/dl Hemoglobin A1c (4.5-5.6) % Lactate (0.4-2.0) mmol/L Calcium (8.5-10.1) mg/dl Magnesium (1.8-2.4) mg/dl Troponin I 0.253 H* (0-0.045) ng/ml NT-Pro-B Natriuret Pep 3633 H (0-1800) pg/ml Albumin 2.1 L (3.4-5.0) gm/dl Globulin 4.4 H (2.5-4.0) gm/dl Albumin/Globulin Ratio 0.5 L (0.9-2) Urine Protein 2+ H (Negative) Ur Leukocyte Esterase Trace H (Negative) Urine WBC (Auto) 5-10 H (0-5) /hpf U Epithel Cells (Auto) >30 H (0-5) /lpf 07/04/21 07/04/21 07/05/21 Range/Units 22:06 22:54 05:28 WBC 10.89 H (4.8-10.8) K/uL RBC 4.19 L (4.2-5.4) M/uL Hgb (12.0-16.0) g/dL Hct (37-47) % RDW Std Deviation 48.0 H (36.4-46.3) fL Neut # (Auto) 7.26 H (1.4-6.5) K/uL [place] # (Auto) 1.89 H (0.11-0.59) K/uL Eos # (Auto) (0-0.5) K/uL Immature Gran # (Auto) (0.00-0.02) K/uL PT 19.8 H (9.0-12.0) Seconds INR 2.1 H (0.9-1.1) APTT 37.9 H (21.0-31.0) Seconds ABG pH (7.35-7.45) ABG pO2 (80-95) mmHg ABG HCO3 (19-24) mmol/L ABG O2 Saturation (90-95) % ABG Base Excess (-9-1.8) mEq/L Sodium (136-145) mmol/L BUN (7-18) mg/dl BUN/Creatinine Ratio (10-20) Glucose (70-99) mg/dl Hemoglobin A1c (4.5-5.6) % Lactate 2.2 H* (0.4-2.0) mmol/L Calcium (8.5-10.1) mg/dl Magnesium (1.8-2.4) mg/dl Troponin I (0-0.045) ng/ml NT-Pro-B Natriuret Pep (0-1800) pg/ml Albumin (3.4-5.0) gm/dl Globulin (2.5-4.0) gm/dl Albumin/Globulin Ratio (0.9-2) Urine Protein (Negative) Ur Leukocyte Esterase (Negative) Urine WBC (Auto) (0-5) /hpf U Epithel Cells (Auto) (0-5) /lpf 07/05/21 07/05/21 07/05/21 Range/Units 05:28 05:28 05:28 WBC (4.8-10.8) K/uL RBC (4.2-5.4) M/uL Hgb (12.0-16.0) g/dL Hct (37-47) % RDW Std Deviation (36.4-46.3) fL Neut # (Auto) (1.4-6.5) K/uL [place] # (Auto) (0.11-0.59) K/uL Eos # (Auto) (0-0.5) K/uL Immature Gran # (Auto) (0.00-0.02) K/uL PT 23.1 H (9.0-12.0) Seconds INR 2.4 H (0.9-1.1) APTT (21.0-31.0) Seconds ABG pH (7.35-7.45) ABG pO2 (80-95) mmHg ABG HCO3 (19-24) mmol/L ABG O2 Saturation (90-95) % ABG Base Excess (-9-1.8) mEq/L Sodium (136-145) mmol/L BUN (7-18) mg/dl BUN/Creatinine Ratio (10-20) Glucose 120 H (70-99) mg/dl Hemoglobin A1c 5.8 H (4.5-5.6) % Lactate (0.4-2.0) mmol/L Calcium 8.3 L (8.5-10.1) mg/dl Magnesium 2.5 H (1.8-2.4) mg/dl Troponin I 0.403 H* (0-0.045) ng/ml NT-Pro-B Natriuret Pep (0-1800) pg/ml Albumin (3.4-5.0) gm/dl Globulin (2.5-4.0) gm/dl Albumin/Globulin Ratio (0.9-2) Urine Protein (Negative) Ur Leukocyte Esterase (Negative) Urine WBC (Auto) (0-5) /hpf U Epithel Cells (Auto) (0-5) /lpf 07/05/21 07/05/21 Range/Units 09:34 11:00 WBC (4.8-10.8) K/uL RBC (4.2-5.4) M/uL Hgb (12.0-16.0) g/dL Hct (37-47) % RDW Std Deviation (36.4-46.3) fL Neut # (Auto) (1.4-6.5) K/uL [place] # (Auto) (0.11-0.59) K/uL Eos # (Auto) (0-0.5) K/uL Immature Gran # (Auto) (0.00-0.02) K/uL PT (9.0-12.0) Seconds INR (0.9-1.1) APTT (21.0-31.0) Seconds ABG pH 7.47 H (7.35-7.45) ABG pO2 79 L (80-95) mmHg ABG HCO3 27 H (19-24) mmol/L ABG O2 Saturation 96.4 H (90-95) % ABG Base Excess 3.2 H (-9-1.8) mEq/L Sodium (136-145) mmol/L BUN (7-18) mg/dl BUN/Creatinine Ratio (10-20) Glucose (70-99) mg/dl Hemoglobin A1c (4.5-5.6) % Lactate (0.4-2.0) mmol/L Calcium (8.5-10.1) mg/dl Magnesium (1.8-2.4) mg/dl Troponin I 0.283 H* (0-0.045) ng/ml NT-Pro-B Natriuret Pep (0-1800) pg/ml Albumin (3.4-5.0) gm/dl Globulin (2.5-4.0) gm/dl Albumin/Globulin Ratio (0.9-2) Urine Protein (Negative) Ur Leukocyte Esterase (Negative) Urine WBC (Auto) (0-5) /hpf U Epithel Cells (Auto) (0-5) /lpf (1) CHF (congestive heart failure) Heart failure chronicity: acute Heart failure type: unspecified Qualified Code(s): I50.9 - Heart failure, unspecified (2) Leukocytosis Leukocytosis type: unspecified Qualified Code(s): D72.829 - Elevated white blood cell count, unspecified
--- NOTE | 2021-07-05 08:38 | XRay Report ---
XR chest 1V portable CLINICAL HISTORY: Assess for aspiration COMPARISON STUDY: Chest radiograph November 21, 2019 and July 04, 2021. FINDINGS: Lung volumes are diminished. There is no pneumothorax. There is a small left pleural effusi on. There may be a trace right pleural effusion. Cardiomediastinal silhouette is stable. Left basilar opacity persists. There is diffuse interstitial thickening. IMPRESSION: 1. Progression of left basilar opacity. This may reflect pneumonia or aspiration pneumonitis. Small l eft pleural effusion. 2. Interstitial thickening which may reflect pulmonary edema or an infectious process superimposed up on chronic interstitial lung disease. ACT 112: Negative or not required by law. Electronically signed by: Stanford Moore M.D. 07/05/2021 8:36 AM
[2021-07-05] MEDS ORDERED: NITROGLYCERIN SL 0.4 MG/TAB TAB SL STA (08:44)
[2021-07-05] MEDS ORDERED: NITROGLYCERIN SL 0.4 MG/TAB TAB SL PRN (08:45)
[2021-07-05] MEDS ORDERED: FUROSEMIDE 40 MG/4 ML VIAL IV SCH (09:00)
[2021-07-05] MEDS ORDERED: FUROSEMIDE 20 MG in SYRINGE 0 ML IV SCH (09:00)
[2021-07-05] MEDS ORDERED: METOPROLOL SUCC 25MG EXT REL TAB PO SCH (09:00)
[2021-07-05] MEDS ORDERED: CEFEPIME 2,000 MG in SYRINGE 0 ML IV SCH (09:00)
[2021-07-05] MEDS ORDERED: cefTRIAXone SODIUM 1,000 MG in DEXTROSE 5% 50 ML IV SCH (09:00)
[2021-07-05] MEDS ORDERED: HEPARIN SOD 5,000 UNIT/0.5 ML VIAL SQ SCH (09:00)
[2021-07-05 09:52] LABS: Base Excess ABG 3.2 mEq/L (-9-1.8); HCO3 ABG 27 mmol/L (19-24); Oxygen Saturation ABG 96.4 % (90-95); PCO2 ABG 37 mmHg (35-46); PO2 ABG 79 mmHg (80-95); pH ABG 7.47 (7.35-7.45)
[2021-07-05 10:04] LABS: Allen Test Pos (Pos)
[2021-07-05] MEDS: MULTIVITAMIN TAB PO SCH (10:29)
--- NOTE | 2021-07-05 10:36 | Cardiology Consultation ---
Date of Consultation July 05, 2021 Assessment & Plan (1) Atypical chest pain: (2) Elevated troponin: (3) Paroxysmal atrial fibrillation: (4) Interstitial lung disease: (5) Hypoxia: Patient is an 86-year-old female with complex constellation of issues which include progressive interstitial lung disease by her recent pulmonary function testing and review of chest x-rays, O2 dependent with recent increasing O2 demands and hypoxia. She carries an underlying history of paroxysmal atrial fibrillation, hypertension/LVH with diastolic dysfunction. She presents this admission having been observed to have worsening O2 saturations despite oxygen supplementation at home during physical therapy and at rest. Transient atrial fibrillation since admission. Laboratory studies notable for elevated troponin, elevated white cell count, elevated BNP but no acute evidence of heart failure by exam. Patient this morning with substernal chest pain while attempting to eat with associated marked dysphagia EKG with inferolateral lateral ST segment change abnormalities Troponins are elevated secondary to demands of acute illness, hypoxia, and paroxysmal atrial fibrillation Plan: No indications for acute diagnostic cardiac studies. Echocardiogram demonstrates preserved LV function. Current symptoms atypical for angina and patient high risk for cardiac catheterization, fully anticoagulated. Patient unable to take a.m. medications including metoprolol succinate. Will begin metoprolol titrate 2.5 mg IV every 4 hours for heart rate, arrhythmia and ischemic control. Patient's overall prognosis is limited with findings reflecting progressive pulmonary disease superimposed on chronic cardiac disease. Would maintain oxygen supplementation History of Present Illness Reason for Consultation: Chest pressure pain, elevated troponin Requesting Physician: Nedra Encinas MD Attending Physician: Nedra Encinas MD History of Present Illness Patient is an 86-year-old female whose history is notable for 1. Paroxysmal atrial fibrillation and atrial tachycardia on chronic anticoagulation 2. Chronic interstitial lung disease O2 dependent 3. Hypertension with diastolic LV dysfunction 4. Gastroesophageal reflux Patient presents this admission having been noted to have significant drop in oxygen saturations with activity at home as well as hypoxia at rest. O2 saturations did not initially respond to oxygen supplementation and patient was referred for further evaluation. Overnight patient had salvos of paroxysmal atrial fibrillation asymptomatic. Treated with single dose of diltiazem in the ER with conversion This morning patient while eating developed sensation of severe chest discomfort, inability to swallow. Laboratory studies demonstrate mild elevation in troponin EKG with subtle T wave inversion in lateral leads. Patient is referred now for further evaluation. Currently complaint of hurting "all over." Significant dysphagia afraid to try swallowing liquids or food No sensed tachypalpitations. No recent bleeding difficulties. Weight is continued to trend downward as an outpatient per patient with dyspnea and fatigue is main complaint She has received IV diuretics in the emergency room last evening. This morning unable to take oral medications due to dysphagia Allergies Allergy/AdvReac Type Severity Reaction Status Date / Time Sulfa (Sulfonamide Allergy Mild rash Verified 07/04/21 22:17 Antibiotics) Macrolide Antibiotics Allergy Unknown Unknown Verified 07/04/21 22:17 niacin Allergy Unknown Unknown Verified 07/04/21 22:17 rosuvastatin [From Crestor] Allergy Unknown Unknown Verified 07/04/21 22:17 cephalexin AdvReac Intermediate Weakness Verified 07/04/21 22:17 gabapentin AdvReac Intermediate unknown Verified 07/04/21 22:17 risedronate sodium AdvReac Intermediate unknown Verified 07/04/21 22:17 Home Medications Medication Instructions Recorded Confirmed Type aspirin 81 mg tablet,delayed 81 mg PO DAILY 11/16/19 07/04/21 History release (Aspirin Low Dose) gabapentin 100 mg capsule 200 mg PO HS 11/16/19 07/04/21 History dxhfhhyi-wwy-yhmzt acid 0.4 1 tab PO DAILY 11/16/19 07/04/21 History mg-lycopene 300 mcg-lutein 250 mcg tablet (Centrum Silver) omeprazole 20 mg capsule,delayed 20 mg PO DAILY 11/16/19 07/04/21 History release metoprolol succinate 25 mg 25 mg PO DAILY 30 Days #30 tab 11/22/19 07/04/21 Rx tablet,extended release 24 hr albuterol sulfate 90 mcg/actuation 2 puff INHALATION Q4H PRN 07/04/21 07/04/21 History aerosol inhaler warfarin 2.5 mg tablet See Rx Instructions .ROUTE .COMPLEX 07/04/21 07/04/21 History Patient History Medical History (Updated 07/05/21 @ 10:36 by Bowen Holman MD) GERD (gastroesophageal reflux disease) History of TIA (transient ischemic attack) Paroxysmal atrial fibrillation Stroke-like symptoms Surgical History History of appendectomy Family History Other Family history non-contributory Social History Smoking Status: Never smoker Second Hand Exposure: No; Do You Dip or Chew Tobacco: No; Hx Alcohol Use: No Hx Substance Use: No Preferred Language: Swiss Communication Ability: Effective Butcher Scullion Required: No Beliefs That Will Affect Care: None marital status: / Current Living Situation: Alone How many Children do You have: 2 Other Information That Helps Us Care for You: No Feels Safe at Home: Yes Safety Concerns: Feels Safe At This Time Assistive Devices: Glasses and Oxygen - Continuous Review of Systems Review of Systems: All systems reviewed & are unremarkable except as noted in HPI & below Physical Exam Constitutional: + thin and + frail appearing Eyes: PERRL, conjunctivae normal, anicteric sclerae ENMT: external ear and nose normal, oropharynx normal Neck: trachea midline, no thyromegaly Respiratory: Auscultation: + vesicular breath sounds Cardiovascular: Rate/Rhythm: regular rate and regular rhythm Heart Sounds: + murmur (Grade 1/6 systolic murmur no diastolic) Palpation: no heave Vessels: no JVD Extremities: no edema Gastrointestinal (Abdomen): normal bowel sounds, soft, nontender, no hepatosplenomegaly Musculoskeletal: no cyanosis or clubbing, extremities motor strength 5/5 Skin: no rashes, warm and dry Neurologic: PERRL, EOMI, accommodation nl, no face palsy, no dysarthria Results & Data ([facility]) Vital Signs (Past 12 Hours) Vital Signs Temp Pulse Pulse Resp BP BP Pulse Ox 07/05/21 08:46 80 117/67 90 07/05/21 08:43 84 116/67 89 L 07/05/21 08:41 83 123/60 88 L 07/05/21 08:02 36.4 C L 84 18 100/63 95 07/05/21 08:00 78 07/05/21 05:08 36.6 C 83 18 103/62 95 07/05/21 03:28 147 H 123/64 97 07/05/21 02:17 76 20 96 07/05/21 02:02 88 07/05/21 01:35 36.6 C 89 28 H 131/75 95 07/05/21 01:00 82 23 103/64 96 07/05/21 00:30 86 21 96/60 L 97 07/05/21 00:00 94 H 31 H 109/57 L 97 07/04/21 23:48 84 24 98 07/04/21 23:30 83 27 H 107/64 99 07/04/21 23:00 88 42 H 111/63 97 07/04/21 22:30 91 H 35 H 117/62 95 Laboratory Results Laboratory Results - last 24 hr 07/04/21 07/04/21 07/04/21 21:26 21:26 21:29 WBC 15.97 H RBC 3.87 L Hgb 11.8 L Hct 35.8 L MCV 92.5 MCH 30.5 MCHC 33.0 RDW Std Deviation 47.6 H RDW Coeff of [place] 14.0 Plt Count 249 MPV 10.0 Immature Gran % (Auto) 0.4 Neut % (Auto) 71.1 Lymph % (Auto) 9.2 [place] % (Auto) 15.5 Eos % (Auto) 3.5 Baso % (Auto) 0.3 Neut # (Auto) 11.37 H Lymph # (Auto) 1.47 [place] # (Auto) 2.47 H Eos # (Auto) 0.56 H Baso # (Auto) 0.04 Immature Gran # (Auto) 0.06 H PT INR APTT PTT Ratio ABG pH ABG pCO2 ABG pO2 ABG HCO3 ABG O2 Saturation ABG Base Excess [place] Test Barometric Pressure Oxygen Given Sodium 134 L Potassium 3.8 Chloride 101 Carbon Dioxide 27 Anion Gap 6.0 BUN 20 H Creatinine 0.80 Est Cr Clr Drug Dosing Not Reportable Est GFR ( Amer) 78.5 Est GFR (Non-Af Amer) 67.7 BUN/Creatinine Ratio 24.6 H Glucose 150 H Estimat Average Glucose Hemoglobin A1c Lactate Calcium 8.7 Magnesium 1.9 Total Bilirubin 0.4 AST 24 ALT 16 Alkaline Phosphatase 87 Troponin I 0.253 H* NT-Pro-B Natriuret Pep 3633 H Total Protein 6.5 Albumin 2.1 L Globulin 4.4 H Albumin/Globulin Ratio 0.5 L Procalcitonin Urine Color Dark Yellow Urine Appearance Clear Urine pH 6.5 Ur Specific [place] 1.020 Urine Protein 2+ H Urine Glucose (UA) Negative Urine Ketones Negative Urine Blood Negative Urine Nitrite Negative Urine Bilirubin Negative Urine Urobilinogen Negative Ur Leukocyte Esterase Trace H Urine WBC (Auto) 5-10 H Urine RBC (Auto) 0-4 U Hyaline Cast (Auto) 1-5 U Epithel Cells (Auto) >30 H Urine Bacteria (Auto) Negative Ur Renal Epithelial Cell 0-5 COVID-19 Eval Order SARS-CoV-2 (PCR) 07/04/21 07/04/21 07/04/21 21:51 21:51 22:06 WBC RBC Hgb Hct MCV MCH MCHC RDW Std Deviation RDW Coeff of [place] Plt Count MPV Immature Gran % (Auto) Neut % (Auto) Lymph % (Auto) [place] % (Auto) Eos % (Auto) Baso % (Auto) Neut # (Auto) Lymph # (Auto) [place] # (Auto) Eos # (Auto) Baso # (Auto) Immature Gran # (Auto) PT INR APTT PTT Ratio ABG pH ABG pCO2 ABG pO2 ABG HCO3 ABG O2 Saturation ABG Base Excess [place] Test Barometric Pressure Oxygen Given Sodium Potassium Chloride Carbon Dioxide Anion Gap BUN Creatinine Est Cr Clr Drug Dosing Est GFR ( Amer) Est GFR (Non-Af Amer) BUN/Creatinine Ratio Glucose Estimat Average Glucose Hemoglobin A1c Lactate 2.2 H* Calcium Magnesium Total Bilirubin AST ALT Alkaline Phosphatase Troponin I NT-Pro-B Natriuret Pep Total Protein Albumin Globulin Albumin/Globulin Ratio Procalcitonin Urine Color Urine Appearance Urine pH Ur Specific [place] Urine Protein Urine Glucose (UA) Urine Ketones Urine Blood Urine Nitrite Urine Bilirubin Urine Urobilinogen Ur Leukocyte Esterase Urine WBC (Auto) Urine RBC (Auto) U Hyaline Cast (Auto) U Epithel Cells (Auto) Urine Bacteria (Auto) Ur Renal Epithelial Cell COVID-19 Eval Order Covid19 at [facility] SARS-CoV-2 (PCR) NEGATIVE 07/04/21 07/04/21 07/05/21 22:54 22:54 00:35 WBC RBC Hgb Hct MCV MCH MCHC RDW Std Deviation RDW Coeff of [place] Plt Count MPV Immature Gran % (Auto) Neut % (Auto) Lymph % (Auto) [place] % (Auto) Eos % (Auto) Baso % (Auto) Neut # (Auto) Lymph # (Auto) [place] # (Auto) Eos # (Auto) Baso # (Auto) Immature Gran # (Auto) PT 19.8 H INR 2.1 H APTT 37.9 H PTT Ratio 1.4 ABG pH ABG pCO2 ABG pO2 ABG HCO3 ABG O2 Saturation ABG Base Excess [place] Test Barometric Pressure Oxygen Given Sodium Potassium Chloride Carbon Dioxide Anion Gap BUN Creatinine Est Cr Clr Drug Dosing Est GFR ( Amer) Est GFR (Non-Af Amer) BUN/Creatinine Ratio Glucose Estimat Average Glucose Hemoglobin A1c Lactate 1.3 Calcium Magnesium Total Bilirubin AST ALT Alkaline Phosphatase Troponin I NT-Pro-B Natriuret Pep Total Protein Albumin Globulin Albumin/Globulin Ratio Procalcitonin 0.20 Urine Color Urine Appearance Urine pH Ur Specific [place] Urine Protein Urine Glucose (UA) Urine Ketones Urine Blood Urine Nitrite Urine Bilirubin Urine Urobilinogen Ur Leukocyte Esterase Urine WBC (Auto) Urine RBC (Auto) U Hyaline Cast (Auto) U Epithel Cells (Auto) Urine Bacteria (Auto) Ur Renal Epithelial Cell COVID-19 Eval Order SARS-CoV-2 (PCR) 07/05/21 07/05/21 07/05/21 05:28 05:28 05:28 WBC 10.89 H RBC 4.19 L Hgb 12.8 Hct 39.0 MCV 93.1 MCH 30.5 MCHC 32.8 RDW Std Deviation 48.0 H RDW Coeff of [place] 14.0 Plt Count 250 MPV 9.7 Immature Gran % (Auto) 0.1 Neut % (Auto) 66.6 Lymph % (Auto) 12.5 [place] % (Auto) 17.4 Eos % (Auto) 2.8 Baso % (Auto) 0.6 Neut # (Auto) 7.26 H Lymph # (Auto) 1.36 [place] # (Auto) 1.89 H Eos # (Auto) 0.31 Baso # (Auto) 0.06 Immature Gran # (Auto) 0.01 PT INR APTT PTT Ratio ABG pH ABG pCO2 ABG pO2 ABG HCO3 ABG O2 Saturation ABG Base Excess Kendall Test Barometric Pressure Oxygen Given Sodium 136 Potassium 3.7 Chloride 102 Carbon Dioxide 30 Anion Gap 4.0 BUN 18 Creatinine 0.92 Est Cr Clr Drug Dosing 21.5 Est GFR ( Amer) 66.3 Est GFR (Non-Af Amer) 57.2 BUN/Creatinine Ratio 19.4 Glucose 120 H Estimat Average Glucose 120 Hemoglobin A1c 5.8 H Lactate Calcium 8.3 L Magnesium 2.5 H Total Bilirubin AST ALT Alkaline Phosphatase Troponin I 0.403 H* NT-Pro-B Natriuret Pep Total Protein Albumin Globulin Albumin/Globulin Ratio Procalcitonin Urine Color Urine Appearance Urine pH Ur Specific [place] Urine Protein Urine Glucose (UA) Urine Ketones Urine Blood Urine Nitrite Urine Bilirubin Urine Urobilinogen Ur Leukocyte Esterase Urine WBC (Auto) Urine RBC (Auto) U Hyaline Cast (Auto) U Epithel Cells (Auto) Urine Bacteria (Auto) Ur Renal Epithelial Cell COVID-19 Eval Order SARS-CoV-2 (PCR) 07/05/21 07/05/21 05:28 09:34 WBC RBC Hgb Hct MCV MCH MCHC RDW Std Deviation RDW Coeff of [place] Plt Count MPV Immature Gran % (Auto) Neut % (Auto) Lymph % (Auto) [place] % (Auto) Eos % (Auto) Baso % (Auto) Neut # (Auto) Lymph # (Auto) [place] # (Auto) Eos # (Auto) Baso # (Auto) Immature Gran # (Auto) PT 23.1 H INR 2.4 H APTT PTT Ratio ABG pH 7.47 H ABG pCO2 37 ABG pO2 79 L ABG HCO3 27 H ABG O2 Saturation 96.4 H ABG Base Excess 3.2 H Kendall Test Pos Barometric Pressure 736.6 Oxygen Given 2 Sodium Potassium Chloride Carbon Dioxide Anion Gap BUN Creatinine Est Cr Clr Drug Dosing Est GFR ( Amer) Est GFR (Non-Af Amer) BUN/Creatinine Ratio Glucose Estimat Average Glucose Hemoglobin A1c Lactate Calcium Magnesium Total Bilirubin AST ALT Alkaline Phosphatase Troponin I NT-Pro-B Natriuret Pep Total Protein Albumin Globulin Albumin/Globulin Ratio Procalcitonin Urine Color Urine Appearance Urine pH Ur Specific [place] Urine Protein Urine Glucose (UA) Urine Ketones Urine Blood Urine Nitrite Urine Bilirubin Urine Urobilinogen Ur Leukocyte Esterase Urine WBC (Auto) Urine RBC (Auto) U Hyaline Cast (Auto) U Epithel Cells (Auto) Urine Bacteria (Auto) Ur Renal Epithelial Cell COVID-19 Eval Order SARS-CoV-2 (PCR) Diagnostic Findings Echocardiogram 07/05/2021 Moderate left hypertrophy with normal left ventricular systolic function, grade 1 diastolic dysfunction minimal elevation in pulmonary pressures with mildly dilated right ventricle
--- NOTE | 2021-07-05 11:41 | Pulmonary Consultation ---
Date of Consultation July 05, 2021 Assessment & Plan (1) Interstitial lung disease: (2) Pulmonary fibrosis: (3) Acute and chronic respiratory failure with hypoxia: Chest x-ray 07/05/2021 personally reviewed: Portable film, rotated to the left, poor inspiratory effort, bilateral interstitial thickening appreciated, retrocardiac opacity cannot be ruled out No significant change compared to chest x-ray done 07/04/2021 but significantly worse compared to chest x-ray October 2019 --Acute on chronic hypoxic respiratory failure Multifactorial Diastolic CHF along with an stable angina/NSTEMI Chronic underlying ILD/pulmonary fibrosis BNP 3633 COVID-19 PCR negative Procalcitonin 0.2 --ILD/pulmonary fibrosis I did look at the CT chest done back in 2007 where she had some interstitial thickening but no honeycombing appreciated Latest chest x-ray that shows significant progression of her underlying ILD In an 86-year-old I do not think doing a biopsy would be the right thing to do. Conservative management with oxygen supplementation Patients with ILD/pulmonary fibrosis do have associated GERD. Would recommend PPI on a daily basis Plan: Try to keep the patient negative balance. Continue with atypical coverage for the antibiotics. Overall prognosis of the patient is guarded I would recommend getting palliative care involved as well Pulmonary will continue to follow Case discussed with Dr. Encinas Please note the above document was generated using voice recognition software. It may contain grammatical, syntax or spelling errors.Any formal questions or concerns about the content, text or information contained within the body of this dictation should be directly addressed to the provider for clarification. History of Present Illness Attending Physician: Nedra Encinas MD History of Present Illness 86-year-old female past medical history of chronic hypoxic respiratory failure on 2 L oxygen during the day, paroxysmal A. fib, diastolic CHF, IBS, GERD, pu lmonary fibrosis, CKD 3 present to the hospital with worsening shortness of breath going on since last week or so. Pulmonary consulted for the same. Just prior to me seeing the patient patient was complaining of chest pain radiating to the left neck this was followed after a choking episode when she was having her breakfast. She had an EKG and showed T wave inversions in the lateral leads At the time of examination patient was still complaining of chest discomfort radiating to the left neck. Denies any reflux-like symptoms. No nausea or vomiting. Denies any fever or chills. No dysuria, no diarrhea. He does complain of sciatica pain especially in the lower back left side. Patient denies any personal or family history of any autoimmune disease like lupus, sarcoid, Sjogren's, rheumatoid arthritis. No Raynaud's phenomena. Patient never had biopsy of her lungs done. Social history: Non-smoker, no illicit drug use, no alcohol use Pets: No birds or poultry nearby Allergies Allergy/AdvReac Type Severity Reaction Status Date / Time Sulfa (Sulfonamide Allergy Mild rash Verified 07/04/21 22:17 Antibiotics) Macrolide Antibiotics Allergy Unknown Unknown Verified 07/04/21 22:17 niacin Allergy Unknown Unknown Verified 07/04/21 22:17 rosuvastatin [From Crestor] Allergy Unknown Unknown Verified 07/04/21 22:17 cephalexin AdvReac Intermediate Weakness Verified 07/04/21 22:17 gabapentin AdvReac Intermediate unknown Verified 07/04/21 22:17 risedronate sodium AdvReac Intermediate unknown Verified 07/04/21 22:17 Home Medications Medication Instructions Recorded Confirmed Type aspirin 81 mg tablet,delayed 81 mg PO DAILY 11/16/19 07/04/21 History release (Aspirin Low Dose) gabapentin 100 mg capsule 200 mg PO HS 11/16/19 07/04/21 History xuyrlolf-amh-frxzv acid 0.4 1 tab PO DAILY 11/16/19 07/04/21 History mg-lycopene 300 mcg-lutein 250 mcg tablet (Centrum Silver) omeprazole 20 mg capsule,delayed 20 mg PO DAILY 11/16/19 07/04/21 History release metoprolol succinate 25 mg 25 mg PO DAILY 30 Days #30 tab 11/22/19 07/04/21 Rx tablet,extended release 24 hr albuterol sulfate 90 mcg/actuation 2 puff INHALATION Q4H PRN 07/04/21 07/04/21 History aerosol inhaler warfarin 2.5 mg tablet See Rx Instructions .ROUTE .COMPLEX 07/04/21 07/04/21 History Patient History Medical History (Updated 07/05/21 @ 11:32 by Kerry Cotto MD) GERD (gastroesophageal reflux disease) History of TIA (transient ischemic attack) Paroxysmal atrial fibrillation Stroke-like symptoms Surgical History History of appendectomy Family History Other Family history non-contributory Social History Smoking Status: Never smoker Second Hand Exposure: No; Do You Dip or Chew Tobacco: No; Hx Alcohol Use: No Hx Substance Use: No Preferred Language: Macedonian Communication Ability: Effective Machine Stapler Required: No Beliefs That Will Affect Care: None marital status: / Current Living Situation: Alone How many Children do You have: 2 Other Information That Helps Us Care for You: No Feels Safe at Home: Yes Safety Concerns: Feels Safe At This Time Assistive Devices: Glasses and Oxygen - Continuous Review of Systems Review of Systems: All systems reviewed & are unremarkable except as noted in HPI & below Physical Exam Physical Exam: Constitutional: No acute distress HEENT: EOMI, PERRLA, no JVD Respiratory system: Decreased air entry bilaterally, no wheeze, no rhonchi, positive Velcro-like crackles appreciated bilaterally CVS: S1-S2 positive, no murmurs or gallops Abdomen: Soft, nontender, nondistended, positive bowel sounds x4 Extremities: +2 pulses bilaterally radialis/ dorsalis pedis, no cyanosis, no ed kimmie, no clubbing Neuro: Awake alert oriented x3 Psych: Normal mood and affect G/U: No De La Cruz Results & Data Results & Data ([facility]) Vital Signs (Past 12 Hours) Vital Signs Temp Pulse Pulse Resp BP BP Pulse Ox 07/05/21 08:46 80 117/67 90 07/05/21 08:43 84 116/67 89 L 07/05/21 08:41 83 123/60 88 L 07/05/21 08:02 36.4 C L 84 18 100/63 95 07/05/21 08:00 78 07/05/21 05:08 36.6 C 83 18 103/62 95 07/05/21 03:28 147 H 123/64 97 07/05/21 02:17 76 20 96 07/05/21 02:02 88 07/05/21 01:35 36.6 C 89 28 H 131/75 95 07/05/21 01:00 82 23 103/64 96 07/05/21 00:30 86 21 96/60 L 97 07/05/21 00:00 94 H 31 H 109/57 L 97 07/04/21 23:48 84 24 98 07/04/21 23:30 83 27 H 107/64 99 07/05/21 05:28 07/05/21 05:28 PG Care Time/CCT Total # of Minutes Spent Total Time Spent with Patient: Total time spent is greater than 50% in coordination of care (as documented) at patient's floor/unit and/or counseling patient: Coding Level of Care Code 67839 Initial Inpt Care Lvl 3 Diagnoses Interstitial lung disease J84.9 Pulmonary fibrosis J84.10 Acute and chronic respiratory failure with hypoxia J96.21
[2021-07-05] MEDS: ASPIRIN 81 MG ECTAB PO SCH ×2 (11:48→13:16)
[2021-07-05] MEDS ORDERED: METOPROLOL TARTRATE 1 MG/ML VIAL IV SCH (12:00)
[2021-07-05] MEDS ORDERED: AMPICILLIN/SULBACTAM SOD 1,500 MG in 0.9 % SODIUM CHLORIDE 100 ML IV SCH (14:00)
[2021-07-05] MEDS: AMPICILLIN/SULBACTAM SOD 1,500 MG in 0.9 % SODIUM CHLORIDE 100 ML IV SCH (15:00)
[2021-07-05] MEDS ORDERED: WARFARIN SOD 2.5 MG TAB PO SCH (16:00)
[2021-07-05] MEDS: METOPROLOL SUCC 25MG EXT REL TAB PO SCH (16:03)
[2021-07-05] MEDS ORDERED: Nursing to Pharmacy Communication SCH (16:15)
[2021-07-05] MEDS: GABAPENTIN 100 MG CAP PO SCH (21:49)
--- NOTE | 2021-07-05 23:08 | Electrocardiogram Report ---
Test Reason : Blood Pressure : / mmHG Vent. Rate : 090 BPM Atrial Rate : 090 BPM P-R Int : 134 ms QRS Dur : 082 ms QT Int : 398 ms P-R-T Axes : 026 061 000 degrees QTc Int : 486 ms Normal sinus rhythm Possible Left atrial enlargement Septal infarct , age undetermined Nonspecific T wave abnormality Abnormal ECG When compared with ECG of 16-NOV-2019 06:53, Septal infarct is now Present Inverted T waves have replaced nonspecific T wave abnormality in Inferior leads Nonspecific T wave abnormality now evident in Anterior leads Confirmed by Oscar Harrison ([id number]) on 07/05/2021 11:08:29 PM Referred By: REFERRED SELF Confirmed By:Oscar Harrison
--- NOTE | 2021-07-05 23:13 | Electrocardiogram Report ---
Test Reason : Blood Pressure : / mmHG Vent. Rate : 158 BPM Atrial Rate : 166 BPM P-R Int : 000 ms QRS Dur : 084 ms QT Int : 310 ms P-R-T Axes : 000 020 196 degrees QTc Int : 502 ms Poor data quality, interpretation may be adversely affected Atrial fibrillation with rapid ventricular response Inferior infarct , possibly acute ACUTE AK / STEMI Consider right ventricular involvement in acute inferior infarct Nonspecific T wave abnormality Marked ST abnormality, possible lateral subendocardial injury Abnormal ECG When compared with ECG of 04-JUL-2021 22:27, ST elevation now present in Inferior leads ST now depressed in Lateral leads Atrial fibrillation has replaced Sinus rhythm Confirmed by Oscar Harrison ([id number]) on 07/05/2021 11:13:04 PM Referred By: REFERRED SELF Confirmed By:Oscar Harrison
--- NOTE | 2021-07-05 23:14 | Electrocardiogram Report ---
Test Reason : Blood Pressure : / mmHG Vent. Rate : 089 BPM Atrial Rate : 089 BPM P-R Int : 148 ms QRS Dur : 078 ms QT Int : 402 ms P-R-T Axes : 020 049 -19 degrees QTc Int : 489 ms Normal sinus rhythm Possible Left atrial enlargement Septal infarct , age undetermined T wave abnormality, consider inferior ischemia T wave abnormality, consider anterior ischemia Abnormal ECG When compared with ECG of 05-JUL-2021 03:23, Sinus rhythm has replaced Atrial fibrillation ST no longer elevated in Inferior leads ST no longer depressed in Lateral leads Confirmed by Oscar Harrison ([id number]) on 07/05/2021 11:14:38 PM Referred By: REFERRED SELF Confirmed By:Oscar Harrison
--- NOTE | 2021-07-05 23:16 | Electrocardiogram Report ---
Test Reason : Blood Pressure : / mmHG Vent. Rate : 083 BPM Atrial Rate : 083 BPM P-R Int : 110 ms QRS Dur : 078 ms QT Int : 404 ms P-R-T Axes : -43 076 -39 degrees QTc Int : 475 ms Unusual P axis, possible ectopic atrial rhythm Abnormal ECG When compared with ECG of 05-JUL-2021 06:45, Ectopic atrial rhythm has replaced Sinus rhythm Confirmed by Oscar Harrison ([id number]) on 07/05/2021 11:16:32 PM Referred By: REFERRED SELF Confirmed By:Oscar Harrison
[2021-07-06] MEDS: IPRATROPIUM BROMIDE NEB SOLN 0.02% 2.5 ML VIAL INH SCH ×4 (01:18→19:17)
[2021-07-06] MEDS: LEVALBUTEROL 1.25MG/0.5ML NEB INH SCH ×4 (01:18→19:17)
[2021-07-06] MEDS: AMPICILLIN/SULBACTAM SOD 1,500 MG in 0.9 % SODIUM CHLORIDE 100 ML IV SCH ×3 (01:39→19:40)
[2021-07-06 05:57] LABS: Hematocrit (blood only) 34.2 % (37-47); Hemoglobin 11.2 g/dL (12.0-16.0); Mean Corpuscular Hgb Conc 32.7 g/dL (32-36); Mean Corpuscular Volume 91.7 fL (80-100); Mean Platelet Volume 9.6 fL (7.4-10.4); Platelet Count 265 K/uL (130-400); RDW Coefficient of Variation 13.9 % (11.5-14.5); RDW Standard Deviation 46.9 fL (36.4-46.3); Red Blood Count 3.73 M/uL (4.2-5.4)
[2021-07-06 06:16] LABS: INR 3.7 (0.9-1.1); Prothrombin Time 34.1 Seconds (9.0-12.0)
[2021-07-06 06:24] LABS: BUN Creatinine Ratio 23.7 (10-20); Creatinine Clr Calc Pharmacy 47.5 ml/min; Est GFR (Non-African American) 82.8 ml/min; Magnesium 2.3 mg/dl (1.8-2.4); Phosphorus 3.8 mg/dl (2.5-4.9); Potassium 3.9 mmol/L (3.5-5.1)
[2021-07-06] MEDS: DOXYCYCLINE HYCLATE 100 MG in DEXTROSE 5% 100 ML IV SCH ×2 (09:23→20:28)
[2021-07-06] MEDS: ASPIRIN 81 MG CHEW PO SCH (09:23)
[2021-07-06] MEDS: LANSOPRAZOLE 30 MG SOLTAB PO SCH (09:23)
[2021-07-06] MEDS: METOPROLOL SUCC 25MG EXT REL TAB PO SCH (09:24)
[2021-07-06] MEDS: MULTIVITAMIN TAB PO SCH (09:24)
--- NOTE | 2021-07-06 12:08 | Hospitalist Progress Note ---
Date of Service July 06, 2021 Assessment & Plan (1) Atypical chest pain: Plan: Chest pain yesterday, resolved EKG changes showing TWI in lateral leads Elevated trop on admission Cardiology evaluation noted. Conservative management Patient on aspirin and warfarin. Due to patient's age and comorbidities, advanced lung disease, she is very high risk for cardiac catheterization. Hence, we will manage medically. Chest pain though atypical, is likely due to NSTEMI vs possible due to aspiration chest pain is currently resolved Continue aspirin. Trop trend noted. Troponin peaked at 0.4 and trended down Echo showed preserved EF. Possible aspiration into the airway CXR done after onset of chest pain reports increased left lung opacity continue Unasyn for now [employer] CEMENT[employer] eval noted tolerating minced and moist diet with aspiration precautions (2) Interstitial lung disease: (3) Leukocytosis: (4) Acute and chronic respiratory failure with hypoxia: Plan: Possibly due to interstitial lung disease +/- posssible acute on chronic diastolic heart failure Also concern for aspiration Continue oxygen supplementation. Wean oxygen as tolerated Pulm recs appreciated (5) Elevated troponin: Plan: As above (6) CHF (congestive heart failure): Plan: As above (7) Paroxysmal atrial fibrillation: Plan: Patient also had paroxysmal A. fib on admission and converted to sinus after Cardizem IV. Continue metoprolol for now. Cardiology recommendation appreciated (8) DVT prophylaxis: Plan: Was on coumadin INR is supratherapeutic today at 3.7. Hold Coumadin for now and monitor INR PT/OT eval CM consult. Patient reports she lives alone Palliative consult for goals of care Admission and Anticipated Discharge Date Admission Date: July 05, 2021 Subjective 86-year-old female with past medical history significant for prediabetes, paroxysmal atrial fibrillation, diastolic CHF, irritable bowel syndrome, GERD, history of protein calorie malnutrition, history of gallbladder stones, history of chronic kidney disease stage III, history of cystocele, uterine prolapse, senile osteoporosis, sensorineural hearing loss on the right side, history of pathological fracture of the vertebra, history of TIA. Presents with shortness of breath On day of admission, she had paroxysmal Afib and got IV Cardizem with conversion to sinus had chest pain yesterday that started after eating breakfast. Was noted to have possible aspiration into the airway and NSTEMI Patient seen and examined this morning. Reports cough, weakness. States that she is anxious of being in the hospital. Denies any chest pain, nausea, vomiting or difficulty swallowing or eating breakfast Review of Systems Constitutional: no fever and no chills Eyes: no problem reported Ear, Nose, Mouth, Throat: no dysphagia Respiratory: + cough; no dyspnea Cardiovascular: no chest pain, no dyspnea, no palpitations and no lightheadedness Gastrointestinal: no abdominal pain, no nausea, no vomiting and no diarrhea/loose stools Genitourinary: no dysuria and no urinary frequency Neurologic: no dizziness, no headache(s) and no confusion Psychiatric: + anxiety; no depression Physical Exam Constitutional: + well hydrated; no acute distress Eyes: PERRL, conjunctivae normal, anicteric sclerae ENMT: external ear and nose normal, oropharynx normal Respiratory: no respiratory distress Auscultation: + crackles On 4 L/min nasal oxygen [baseline is 2.5 L/min at home] Cardiovascular: Rate/Rhythm: regular rate and regular rhythm S1-S2 no pedal edema Gastrointestinal (Abdomen): normal bowel sounds, soft, nontender, no hepatosplenomegaly Musculoskeletal: No pedal edema. Neurologic: PERRL, EOMI, accommodation nl, no face palsy, no dysarthria Psychiatric: A+Ox3, euthymic affect Results & Data Results & Data ([facility]) Vital Signs (Past 12 Hours) Vital Signs Temp Pulse Pulse Resp BP Pulse Ox 07/06/21 11:48 36.9 C 88 20 120/70 96 07/06/21 09:31 94 H 35 H 95 07/06/21 09:29 36 H 95 07/06/21 09:10 36.9 C 102 H 143/79 H 07/06/21 08:00 88 07/06/21 07:44 36.8 C 96 H 19 108/62 90 07/06/21 07:24 87 18 97 07/06/21 03:43 37.0 C 100 H 20 147/73 H 95 07/06/21 01:18 96 H 22 90 Laboratory Results Abnormal lab results 07/05/21 07/06/21 07/06/21 Range/Units 17:56 05:35 05:35 RBC 3.73 L (4.2-5.4) M/uL Hgb 11.2 L (12.0-16.0) g/dL Hct 34.2 L (37-47) % RDW Std Deviation 46.9 H (36.4-46.3) fL PT 34.1 H (9.0-12.0) Seconds INR 3.7 H (0.9-1.1) BUN/Creatinine Ratio (10-20) Calcium (8.5-10.1) mg/dl Troponin I 0.203 H* (0-0.045) ng/ml 07/06/21 Range/Units 05:35 RBC (4.2-5.4) M/uL Hgb (12.0-16.0) g/dL Hct (37-47) % RDW Std Deviation (36.4-46.3) fL PT (9.0-12.0) Seconds INR (0.9-1.1) BUN/Creatinine Ratio 23.7 H (10-20) Calcium 8.0 L (8.5-10.1) mg/dl Troponin I (0-0.045) ng/ml (1) Leukocytosis Leukocytosis type: unspecified Qualified Code(s): D72.829 - Elevated white blood cell count, unspecified (2) CHF (congestive heart failure) Heart failure chronicity: acute Heart failure type: unspecified Qualified Code(s): I50.9 - Heart failure, unspecified
--- NOTE | 2021-07-06 13:42 | Pulmonology Progress Note ---
Date of Service July 06, 2021 Assessment & Plan (1) Interstitial lung disease: (2) Pulmonary fibrosis: (3) Acute and chronic respiratory failure with hypoxia: Plan: Chest x-ray 07/05/2021 personally reviewed: Portable film, rotated to the left, poor inspiratory effort, bilateral interstitial thickening appreciated, retrocardiac opacity cannot be ruled out No significant change compared to chest x-ray done 07/04/2021 but significantly worse compared to chest x-ray October 2019 --Acute on chronic hypoxic respiratory failure Multifactorial Diastolic CHF along with an stable angina/NSTEMI Chronic underlying ILD/pulmonary fibrosis BNP 3633 COVID-19 PCR negative Procalcitonin 0.2 --ILD/pulmonary fibrosis I did look at the CT chest done back in 2007 where she had some interstitial thickening but no honeycombing appreciated Latest chest x-ray that shows significant progression of her underlying ILD In an 86-year-old I do not think doing a biopsy would be the right thing to do. Conservative management with oxygen supplementation Patients with ILD/pulmonary fibrosis do have associated GERD. Continue with PPI on a daily basis Plan: In/out: +683, urine output 250 Try to keep the patient negative balance. Continue with atypical coverage for the antibiotics for total of 5 days. Overall prognosis of the patient is guarded I would recommend getting palliative care involved as well Add incentive spirometry. Case discussed with Dr. Encinas Please note the above document was generated using voice recognition software. It may contain grammatical, syntax or spelling errors.Any formal questions or concerns about the content, text or information contained within the body of this dictation should be directly addressed to the provider for clarification. Admission and Anticipated Discharge Date Admission Date: July 05, 2021 Subjective Patient seen and examined at bedside. No acute distress, no adverse events overnight. Patient looks more comfortable compared to when I saw her yesterday. Denies any significant shortness of breath. She says she is feeling better compared to yesterday. No chest pain, no headache, no nausea, no vomiting. No dizziness. Poor appetite. Review of Systems Review of Systems: All systems reviewed & are unremarkable except as noted in Subjective Physical Exam Physical Exam: Constitutional: No acute distress, frail-appearing HEENT: EOMI, PERRLA, no JVD Respiratory system: Decreased air entry bilaterally, no wheeze, no rhonchi, positive Velcro-like crackles appreciated bilaterally CVS: S1-S2 positive, no murmurs or gallops Abdomen: Soft, nontender, nondistended, positive bowel sounds x4 Extremities: +2 pulses bilaterally radialis/ dorsalis pedis, no cyanosis, no edema, no clubbing Neuro: Awake alert oriented x3 Psych: Normal mood and affect G/U: No De La Cruz Lymphatic: no cervical or axillary lymphadenopathy Results & Data Results & Data ([facility]) Vital Signs (Past 12 Hours) Vital Signs Temp Pulse Pulse Resp BP Pulse Ox 07/06/21 13:06 87 20 91 07/06/21 11:48 36.9 C 88 20 120/70 96 07/06/21 09:31 94 H 35 H 95 07/06/21 09:29 36 H 95 07/06/21 09:10 36.9 C 102 H 143/79 H 07/06/21 08:00 88 07/06/21 07:44 36.8 C 96 H 19 108/62 90 07/06/21 07:24 87 18 97 07/06/21 03:43 37.0 C 100 H 20 147/73 H 95 07/06/21 05:35 07/06/21 05:35 PG Care Time/CCT Total # of Minutes Spent Total Time Spent with Patient: Total time spent is greater than 50% in coordination of care (as documented) at patient's floor/unit and/or counseling patient: Coding Level of Care Code 84525 Subseq Hosp Care Lvl 3 Diagnoses Interstitial lung disease J84.9 Pulmonary fibrosis J84.10 Acute and chronic respiratory failure with hypoxia J96.21
[2021-07-06] MEDS: GABAPENTIN 100 MG CAP PO SCH (19:42)
[2021-07-07] MEDS: LEVALBUTEROL 1.25MG/0.5ML NEB INH SCH ×4 (01:16→19:14)
[2021-07-07] MEDS: IPRATROPIUM BROMIDE NEB SOLN 0.02% 2.5 ML VIAL INH SCH ×4 (01:16→19:13)
[2021-07-07] MEDS: AMPICILLIN/SULBACTAM SOD 1,500 MG in 0.9 % SODIUM CHLORIDE 100 ML IV SCH ×4 (02:29→19:34)
[2021-07-07 06:55] LABS: Hematocrit (blood only) 34.9 % (37-47); Hemoglobin 11.5 g/dL (12.0-16.0); Mean Corpuscular Hemoglobin 29.9 pg (25-34); Mean Corpuscular Volume 90.9 fL (80-100); Mean Platelet Volume 9.4 fL (7.4-10.4); Platelet Count 263 K/uL (130-400); RDW Coefficient of Variation 13.9 % (11.5-14.5); RDW Standard Deviation 46.2 fL (36.4-46.3); Red Blood Count 3.84 M/uL (4.2-5.4); White Blood Count 10.72 K/uL (4.8-10.8)
[2021-07-07 07:02] LABS: INR 2.5 (0.9-1.1)
[2021-07-07 07:26] LABS: BUN Creatinine Ratio 24.2 (10-20); Calcium 8.3 mg/dl (8.5-10.1); Creatinine Clr Calc Pharmacy 57.7 ml/min; Est GFR (African American) 102.3 ml/min; Est GFR (Non-African American) 88.3 ml/min; Magnesium 2.3 mg/dl (1.8-2.4); Phosphorus 3.7 mg/dl (2.5-4.9); Potassium 4.1 mmol/L (3.5-5.1)
[2021-07-07] MEDS: METOPROLOL TARTRATE 1 MG/ML VIAL IV PRN (08:15)
[2021-07-07] MEDS: METOPROLOL SUCC 25MG EXT REL TAB PO SCH ×2 (08:19→19:34)
[2021-07-07] MEDS: ASPIRIN 81 MG CHEW PO SCH (08:20)
[2021-07-07] MEDS: MULTIVITAMIN TAB PO SCH (08:23)
[2021-07-07] MEDS: LANSOPRAZOLE 30 MG SOLTAB PO SCH (08:23)
[2021-07-07] MEDS: DOXYCYCLINE HYCLATE 100 MG in DEXTROSE 5% 100 ML IV SCH ×2 (09:06→20:43)
[2021-07-07] MEDS ORDERED: METOPROLOL TARTRATE 1 MG/ML VIAL IV STA (09:08)
--- NOTE | 2021-07-07 11:02 | Cardiology Progress Note ---
Date of Service July 07, 2021 Assessment & Plan (1) Atypical chest pain: (2) Elevated troponin: (3) Paroxysmal atrial fibrillation: (4) Interstitial lung disease: (5) Hypoxia: Plan: The patient is currently clinically stable. She did have a run of SVT this morn ing which was treated with IV Lopressor. I will increase her oral metoprolol dose to 25 mg twice daily. Admission and Anticipated Discharge Date Admission Date: July 05, 2021 Subjective The patient has no complaints today. She went into an SVT this morning that broke after she was given 2.5 mg of IV Lopressor. Review of Systems Review of Systems: Review of Systems: See HPI for pertinent positives. All other 10 point review of systems are negative. Physical Exam Physical Exam: General: no acute distress and stated age Head: normocephalic, no masses, lesions, tenderness or abnormalities Eyes: conjunctiva are pink and non-injected, sclera clear Neck: supple, no adenopathy, no bruits, normal jugular venous pulse, no hepatojugular reflux Chest: normal shape and normal respiratory effort Lungs: clear to auscultation and percussion Cardiac Exam: - regular rate & rhythm, no murmurs gallops or rubs - normal S1, normal S2 Pulses: 2(+) throughout Abdomen: abdomen soft, non-tender, no abnormal masses and no hepatosplenomegaly Musculoskeletal: no gait disturbance, no joint inflammation, no deforming arthritis Extremities: no edema and no cyanosis Neuro: grossly normal exam Results & Data ([facility]) Vital Signs (Past 12 Hours) Vital Signs Temp Pulse Pulse Resp BP BP Pulse Ox 07/07/21 09:44 123 H 110/69 95 07/07/21 09:29 139 H 103/68 07/07/21 09:23 163 H 92/60 L 07/07/21 08:15 167 H 07/07/21 08:00 94 H 07/07/21 07:08 93 H 23 92 07/07/21 06:37 36.6 C 93 H 18 132/77 91 07/07/21 06:06 36.7 C 92 07/07/21 03:49 100 H 18 125/65 90 07/07/21 01:17 98 H 20 96 07/06/21 23:59 96 H Laboratory Results Laboratory Results - last 24 hr 07/07/21 07/07/2107/07/21 06:26 06:26 06:26 WBC 10.72 RBC 3.84 L Hgb 11.5 L Hct 34.9 L MCV 90.9 MCH 29.9 MCHC 33.0 RDW Std Deviation 46.2 RDW Coeff of Lobo 13.9 Plt Count 263 MPV 9.4 PT 24.0 H INR 2.5 H Sodium 133 L Potassium 4.1 Chloride 100 Carbon Dioxide 28 Anion Gap 5.0 BUN 12 Creatinine 0.51 L Est Cr Clr Drug Dosing 57.7 Est GFR ( Amer) 102.3 Est GFR (Non-Af Amer) 88.3 BUN/Creatinine Ratio 24.2 H Glucose 93 Calcium 8.3 L Phosphorus 3.7 Magnesium 2.3 Medications Administered Current Inpatient Medications Albuterol (Albuterol Hfa 8 Gm Inhaler) 2 puffs INH Q4R PRN PRN Reason: Shortness Of Breath Stop: 08/04/21 01:50 Last Admin: 07/06/21 09:31 Dose: 2 puffs Documented by: Aspirin (Aspirin 81 Mg Chew) 81 mg PO DAILY JOSH Stop: 08/05/21 08:59 Last Admin: 07/07/21 08:20 Dose: 81 mg Documented by: Gabapentin (Gabapentin 100 Mg Cap) 200 mg PO HS JOSH Stop: 08/04/21 20:59 Last Admin: 07/06/21 19:42 Dose: 200 mg Documented by: Doxycycline Hyclate 100 mg/ (Dextrose) 110 mls @ 50 mls/hr IV Q12 JOSH; Protocol Stop: 07/12/21 02:29 Last Admin: 07/07/21 09:06 Dose: 50 mls/hr Documented by: Ampicillin Sodium/Sulbactam Sodium 1,500 mg/ Sodium Chloride 104 mls @ 200 mls/hr IV Q6H JOSH; Protocol Stop: 07/12/21 13:59 Last Infusion: 07/07/21 08:54 Dose: Infused Documented by: Ipratropium [place] (Ipratropium [place] Neb Soln 0.02% 2.5 Ml Vial) 0.5 mg INH Q6R JOSH Stop: 08/04/21 01:59 Last Admin: 07/07/21 07:07 Dose: 0.5 mg Documented by: Lansoprazole (Lansoprazole 30 Mg Soltab) 30 mg PO DAILY JOSH; Protocol Stop: 08/05/21 08:59 Last Admin: 07/07/21 08:23 Dose: 30 mg Documented by: Levalbuterol HCl (Levalbuterol 1.25mg/0.5ml Neb) 1.25 mg INH Q6R [facility] Stop: 08/04/21 01:59 Last Admin: 07/07/21 07:07 Dose: 1.25 mg Documented by: Metoprolol Succinate (Metoprolol Succ 25mg Ext Rel Tab) 25 mg PO BID [facility] Stop: 08/06/21 20:59 Metoprolol Tartrate (Metoprolol Tartrate 1 Mg/Ml Vial) 2.5 mg IV Q4 [facility] Stop: 08/04/21 11:59 Last Admin: 07/05/21 13:14 Dose: 2.5 mg Documented by: Metoprolol Tartrate (Metoprolol Tartrate 1 Mg/Ml Vial) 2.5 mg IV Q4 PRN PRN Reason: HR>120 Stop: 08/06/21 11:59 Last Admin: 07/07/21 08:15 Dose: 2.5 mg Documented by: Multivitamins (Multivitamin Tab) 1 tab PO QAM [facility] Stop: 08/04/21 08:59 Last Admin: 07/07/21 08:23 Dose: 1 tab Documented by: Nitroglycerin (Nitroglycerin Sl 0.4 Mg/Tab Tab) 0.4 mg SL PRN PRN PRN Reason: Chest Pain Stop: 08/04/21 08:44 Last Admin: 07/05/21 08:40 Dose: 0.4 mg Documented by:
--- NOTE | 2021-07-07 11:40 | Palliative Care Consultation ---
Date of Consultation July 07, 2021 Assessment & Plan (1) Dyspnea: with minimal exertion. She is very frail and would not be able to be independent at home at this time. (2) Palliative care encounter: I talked with Gerri about her illness. She voices understanding but at times does not seem to have full insight into her illness. She tells me that she does not have an advance directive and has never really thought about the care that she would want if she were very ill. She does confirm that she would not want intubation or CPR. She tells me that being at home is very important to her though she would not be opposed to hospitalization for treatment if needed. She tells me that her son, Seven Graham, would be her surrogate decision maker but she has never really talked with him about what her wishes would be. I offered to call him but she asked that I not do that today. She is agreeable to further discussion with palliative care during her hospital stay. Discussed with Dr. Encinas. (3) Pulmonary fibrosis: (4) Interstitial lung disease: (5) CHF (congestive heart failure): Heart failure chronicity: acute Heart failure type: unspecified Qualified Code(s): I50.9 - Heart failure, unspecified (6) Paroxysmal atrial fibrillation: (7) Pneumonia: Laterality: left Lung location: lower lobe of lung Pneumonia type: due to unspecified organism Qualified Code(s): J18.9 - Pneumonia, unspecified organism History of Present Illness Reason for Consultation: goals of care Requesting Physician: Dr. Encinas Attending Physician: Nedra Encinas MD History of Present Illness 86 yo lady with history of atrial fibrillation and diastolic heart failure. She has also had progressive interstitial lung disease and has been on baseline 2L oxygen at home. Comparison of chest xrays from 2019 to present shows progressive interstitial fibrosis. She lives at home alone with her son living next door and caregiver help two days a week. She tells me that she had been managing well prior to admission for shortness of breath. History and physical documentation indicates that she had dyspnea with little exertion. She is currently resting comfortably in bed though she does appear to be short of breath with conversation. She had chest pain and elevated troponin on admission with troponin peak at 0.4. She did have an episode of SVT this morning which resolved with IV metoprolol. She denies feeling short of breath or having chest pain. Allergies Allergy/AdvReac Type Severity Reaction Status Date / Time Sulfa (Sulfonamide Allergy Mild rash Verified 07/04/21 22:17 Antibiotics) Macrolide Antibiotics Allergy Unknown Unknown Verified 07/04/21 22:17 niacin Allergy Unknown Unknown Verified 07/04/21 22:17 rosuvastatin [From Crestor] Allergy Unknown Unknown Verified 07/04/21 22:17 cephalexin AdvReac Intermediate Weakness Verified 07/04/21 22:17 gabapentin AdvReac Intermediate unknown Verified 07/04/21 22:17 risedronate sodium AdvReac Intermediate unknown Verified 07/04/21 22:17 Home Medications Medication Instructions Recorded Confirmed Type aspirin 81 mg tablet,delayed 81 mg PO DAILY 11/16/19 07/04/21 History release (Aspirin Low Dose) gabapentin 100 mg capsule 200 mg PO HS 11/16/19 07/04/21 History bsgilxgi-bxo-yevcf acid 0.4 1 tab PO DAILY 11/16/19 07/04/21 History mg-lycopene 300 mcg-lutein 250 mcg tablet (Centrum Silver) omeprazole 20 mg capsule,delayed 20 mg PO DAILY 11/16/19 07/04/21 History release metoprolol succinate 25 mg 25 mg PO DAILY 30 Days #30 tab 11/22/19 07/04/21 Rx tablet,extended release 24 hr albuterol sulfate 90 mcg/actuation 2 puff INHALATION Q4H PRN 07/04/21 07/04/21 History aerosol inhaler warfarin 2.5 mg tablet See Rx Instructions .ROUTE .COMPLEX 07/04/21 07/04/21 History Patient History Medical History (Updated 07/07/21 @ 11:49 by Azul Lee MD) GERD (gastroesophageal reflux disease) History of TIA (transient ischemic attack) Paroxysmal atrial fibrillation Stroke-like symptoms Surgical History History of appendectomy Family History Other Family history non-contributory Social History Smoking Status: Never smoker Second Hand Exposure: No; Do You Dip or Chew Tobacco: No; Hx Alcohol Use: No Hx Substance Use: No Preferred Language: Tongan Communication Ability: Unable 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 Mixer 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 Required: No Beliefs That Will Affect Care: None marital status: / Current Living Situation: Alone How many Children do You have: 2 Other Information That Helps Us Care for You: No Feels Safe at Home: Yes Safety Concerns: Feels Safe At This Time Assistive Devices: Glasses and Oxygen - Continuous Review of Systems Review of Systems: [place] Symptom Assessment Scale Pain 0/3 Dyspnea 1/3 Anxiety 2/3 Fatigue 2/3 Nausea 0/3 Anorexia 2/3 Drowsiness 0/3 Palliative Performance Score 30% Physical Exam Constitutional: + thin and + frail appearing Respiratory: + uses accessory muscles and + tachypneic Cardiovascular: Rate/Rhythm: regular rate and regular rhythm Extremities: no edema Gastrointestinal (Abdomen): nontender Musculoskeletal: Extremities: + muscle atrophy Neurologic: awake; no focal motor deficits Results & Data ([facility]) Vital Signs (Past 12 Hours) Vital Signs Temp Pulse Pulse Resp BP BP Pulse Ox 07/07/21 11:27 85 118/73 91 07/07/21 09:44 123 H 110/69 95 07/07/21 09:29 139 H 103/68 07/07/21 09:23 163 H 92/60 L 07/07/21 08:15 167 H 07/07/21 08:00 94 H 07/07/21 07:08 93 H 23 92 07/07/21 06:37 97.9 F 93 H 18 132/77 91 07/07/21 06:06 98.1 F 92 07/07/21 03:49 100 H 18 125/65 90 07/07/21 01:17 98 H 20 96 07/06/21 23:59 96 H PG Care Time/CCT Total # of Minutes Spent Total Time Spent: 60 Total Time Spent with Patient: Total time spent is greater than 50% in coordination of care (as documented) at patient's floor/unit and/or counseling patient: goals of care, code status, surrogate decision maker Coding Level of Care Code 83183 Initial Inpt Care Lvl 2 Diagnoses Dyspnea R06.00 Palliative care encounter Z51.5 Pulmonary fibrosis J84.10 Interstitial lung disease J84.9 CHF (congestive heart failure) I50.9 Heart failure chronicity: acute Heart failure type: unspecified Paroxysmal atrial fibrillation I48.0 Pneumonia J18.9 Laterality: left Lung location: lower lobe of lung Pneumonia type: due to unspecified organism
--- NOTE | 2021-07-07 13:10 | Hospitalist Progress Note ---
Date of Service July 07, 2021 Assessment & Plan (1) Atypical chest pain: Plan: Chest pain on 07/05/2005/19/2021, resolved EKG changes showing TWI in lateral leads Elevated trop on admission Cardiology evaluation noted. Patient on aspirin and warfarin. Due to patient's age and comorbidities, advanced lung disease, she is very high risk for cardiac catheterization. Hence, we will manage medically. Chest pain though atypical, is likely due to NSTEMI vs possible due to aspiration Chest pain has since resolved Continue aspirin. Trop trend noted. Troponin peaked at 0.4 and trended down Echo showed preserved EF. 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 Wean oxygen as tolerated Pulm recs appreciated (5) Elevated troponin: Plan: As above (6) CHF (congestive heart failure): Plan: As above (7) Paroxysmal atrial fibrillation: Plan: Patient also had paroxysmal A. fib on admission and converted to sinus after Cardizem IV. Went into SVT this morning. Converted back to sinus rhythm after 2 doses of Lopressor. Discussed with global implementation manager. Metoprolol succinate increased to 25 mg twice daily Monitor (8) DVT prophylaxis: Plan: Was on coumadin INR was supratherapeutic yesterday at 3.7. Coumadin was held yesterday, is down to 2.5 today Patient home Coumadin dose is 5 mg on Mondays and and 2.5 mg on other days. We will resume at 2.5 mg daily for now and monitor PT/OT eval CM consult. Patient reports she lives alone Palliative care on board for goals of care. Evaluation today noted Admission and Anticipated Discharge Date Admission Date: July 05, 2021 Subjective 86-year-old female with past medical history significant for prediabetes, paroxysmal atrial fibrillation, diastolic CHF, irritable bowel syndrome, GERD, history of protein calorie malnutrition, history of gallbladder stones, history of chronic kidney disease stage III, history of cystocele, uterine prolapse, senile osteoporosis, sensorineural hearing loss on the right side, history of pathological fracture of the vertebra, history of TIA. Presents with shortness of breath On day of admission, she had paroxysmal Afib and got IV Cardizem with conversion to sinus had chest pain yesterday that started after eating breakfast. Was noted to have possible aspiration into the airway and NSTEMI Patient seen and examined this morning. Patient has no new complaints today except for cough. This morning, patient's heart rhythm went into SVT and required IV Lopressor 2.5 and 5 mg before reverting back to sinus. Review of Systems Constitutional: no fever and no chills Eyes: no problem reported Ear, Nose, Mouth, Throat: no dysphagia Respiratory: + cough; no dyspnea Cardiovascular: no chest pain, no dyspnea, no palpitations and no lig htheadedness Gastrointestinal: no abdominal pain, no nausea, no vomiting and no diarrhea/loose stools Genitourinary: no dysuria and no urinary frequency Neurologic: no dizziness, no headache(s) and no confusion Psychiatric: no depression and no anxiety Physical Exam Constitutional: + well hydrated; no acute distress Eyes: PERRL, conjunctivae normal, anicteric sclerae ENMT: external ear and nose normal, oropharynx normal Respiratory: no respiratory distress Auscultation: + crackles Cardiovascular: Rate/Rhythm: regular rate and regular rhythm Vessels: no JVD S1-S2 Gastrointestinal (Abdomen): normal bowel sounds, soft, nontender, no hepatosplenomegaly Musculoskeletal: No pedal edema Neurologic: PERRL, EOMI, accommodation nl, no face palsy, no dysarthria Psychiatric: A+Ox3, euthymic affect Results & Data Results & Data ([facility]) Vital Signs (Past 12 Hours) Vital Signs Temp Pulse Pulse Resp BP BP BP 07/07/21 12:48 91 H 07/07/21 12:09 36.3 C L 89 19 118/71 07/07/21 11:27 85 118/73 07/07/21 09:44 123 H 110/69 07/07/21 09:29 139 H 103/68 07/07/21 09:23 163 H 92/60 L 07/07/21 08:15 167 H 07/07/21 08:00 94 H 07/07/21 07:08 93 H 23 07/07/21 06:37 36.6 C 93 H 18 132/77 07/07/21 06:06 36.7 C 07/07/21 03:49 100 H 18 125/65 07/07/21 01:17 98 H 20 Pulse Ox 07/07/21 12:48 90 07/07/21 12:09 89 L 07/07/21 11:27 91 07/07/21 09:44 95 07/07/21 09:29 07/07/21 09:23 07/07/21 08:15 07/07/21 08:00 07/07/21 07:08 92 07/07/21 06:37 91 07/07/21 06:06 92 07/07/21 03:49 90 07/07/21 01:17 96 Laboratory Results Abnormal lab results 07/07/21 07/07/21 07/07/21 Range/Units 06:26 06:26 06:26 RBC 3.84 L (4.2-5.4) M/uL Hgb 11.5 L (12.0-16.0) g/dL Hct 34.9 L (37-47) % PT 24.0 H (9.0-12.0) Seconds INR 2.5 H (0.9-1.1) Sodium 133 L (136-145) mmol/L Creatinine 0.51 L (0.6-1.2) mg/dl BUN/Creatinine Ratio 24.2 H (10-20) Calcium 8.3 L (8.5-10.1) mg/dl (1) Leukocytosis Leukocytosis type: unspecified Qualified Code(s): D72.829 - Elevated white blood cell count, unspecified (2) CHF (congestive heart failure) Heart failure chronicity: acute Heart failure type: unspecified Qualified Code(s): I50.9 - Heart failure, unspecified
--- NOTE | 2021-07-07 14:25 | Pulmonology Progress Note ---
Date of Service July 07, 2021 Assessment & Plan (1) Interstitial lung disease: (2) Pulmonary fibrosis: (3) Acute and chronic respiratory failure with hypoxia: Plan: Chest x-ray 07/05/2021 personally reviewed: Portable film, rotated to the left, poor inspiratory effort, bilateral interstitial thickening appreciated, retrocardiac opacity cannot be ruled out No significant change compared to chest x-ray done 07/04/2021 but significantly worse compared to chest x-ray October 2019 --Acute on chronic hypoxic respiratory failure Multifactorial Diastolic CHF along with an stable angina/NSTEMI Chronic underlying ILD/pulmonary fibrosis BNP 3633 COVID-19 PCR negative Procalcitonin 0.2 --ILD/pulmonary fibrosis I did look at the CT chest done back in 2007 where she had some interstitial thickening but no honeycombing appreciated Latest chest x-ray that shows significant progression of her underlying ILD In an 86-year-old I do not think doing a biopsy would be the right thing to do. Conservative management with oxygen supplementation Patients with ILD/pulmonary fibrosis do have associated GERD. Continue with PPI on a daily basis Plan: In/out: -604, urine output 1400 mL Try to keep the patient negative balance. Continue with atypical coverage for the antibiotics for total of 5 days. Continue with spirometry Palliative care is already seen the patient. Overall prognosis is poor Case discussed with Dr. Encinas No further recommend pulmonary perspective. Please call directly with any questions. Please note the above document was generated using voice recognition software. It may contain grammatical, syntax or spelling errors.Any formal questions or concerns about the content, text or information contained within the body of this dictation should be directly addressed to the provider for clarification. Admission and Anticipated Discharge Date Admission Date: July 05, 2021 Subjective Patient seen and examined at bedside. No acute distress, no adverse events overnight. Patient was saturating 94% on 6 L, her heart rate in the 116 Denies any chest pain. States she has fair appetite. Denies any difficulty swallowing. Has been afebrile. Review of Systems Review of Systems: All systems reviewed & are unremarkable except as noted in Subjective Physical Exam Physical Exam: Constitutional: No acute distress, frail-appearing HEENT: EOMI, PERRLA, no JVD Respiratory system: Decreased air entry bilaterally, no wheeze, no rhonchi, positive Velcro-like crackles appreciated bilaterally CVS: S1-S2 positive, no murmurs or gallops, accentuated P2 Abdomen: Soft, nontender, nondistended, positive bowel sounds x4 Extremities: +2 pulses bilaterally radialis/ dorsalis pedis, no cyanosis, no edema, no clubbing Neuro: Awake alert oriented x3 Psych: Normal mood and affect G/U: No [place] Lymphatic: no cervical or axillary lymphadenopathy Results & Data Results & Data ([facility]) Vital Signs (Past 12 Hours) Vital Signs Temp Pulse Pulse Resp BP BP BP 07/07/21 12:59 91 H 27 H 07/07/21 12:48 91 H 07/07/21 12:09 36.3 C L 89 19 118/71 07/07/21 11:27 85 118/73 07/07/21 09:44 123 H 110/69 07/07/21 09:29 139 H 103/68 07/07/21 09:23 163 H 92/60 L 07/07/21 08:15 167 H 07/07/21 08:00 94 H 07/07/21 07:08 93 H 23 07/07/21 06:37 36.6 C 93 H 18 132/77 07/07/21 06:06 36.7 C 07/07/21 03:49 100 H 18 125/65 Pulse Ox 07/07/21 12:59 94 07/07/21 12:48 90 07/07/21 12:09 89 L 07/07/21 11:27 91 07/07/21 09:44 95 07/07/21 09:29 07/07/21 09:23 07/07/21 08:15 07/07/21 08:00 07/07/21 07:08 92 07/07/21 06:37 91 07/07/21 06:06 92 07/07/21 03:49 90 07/07/21 06:26 07/07/21 06:26 PG Care Time/CCT Total # of Minutes Spent Total Time Spent with Patient: Total time spent is greater than 50% in coordination of care (as documented) at patient's floor/unit and/or counseling patient: Coding Level of Care Code 31048 Subseq Hosp Care Lvl 2 Diagnoses Interstitial lung disease J84.9 Pulmonary fibrosis J84.10 Acute and chronic respiratory failure with hypoxia J96.21
[2021-07-07] MEDS ORDERED: POLYETHYLENE (MIRALAX) 17 GM PACK PO PRN (15:12)
[2021-07-07] MEDS: WARFARIN SOD 2.5 MG TAB PO SCH (15:52)
[2021-07-07] MEDS: GABAPENTIN 100 MG CAP PO SCH (19:35)
[2021-07-08] MEDS: LEVALBUTEROL 1.25MG/0.5ML NEB INH SCH ×4 (01:06→18:54)
[2021-07-08] MEDS: IPRATROPIUM BROMIDE NEB SOLN 0.02% 2.5 ML VIAL INH SCH ×4 (01:06→18:54)
[2021-07-08] MEDS: AMPICILLIN/SULBACTAM SOD 1,500 MG in 0.9 % SODIUM CHLORIDE 100 ML IV SCH ×4 (03:00→22:11)
[2021-07-08] MEDS: METOPROLOL TARTRATE 1 MG/ML VIAL IV PRN ×3 (06:52→15:32)
[2021-07-08 07:43] LABS: Hemoglobin 11.2 g/dL (12.0-16.0); Mean Corpuscular Hemoglobin 29.9 pg (25-34); Mean Corpuscular Hgb Conc 32.9 g/dL (32-36); Mean Corpuscular Volume 90.9 fL (80-100); Mean Platelet Volume 9.7 fL (7.4-10.4); Platelet Count 301 K/uL (130-400); RDW Coefficient of Variation 13.9 % (11.5-14.5); RDW Standard Deviation 46.3 fL (36.4-46.3); Red Blood Count 3.74 M/uL (4.2-5.4); White Blood Count 12.68 K/uL (4.8-10.8)
[2021-07-08 07:51] LABS: Prothrombin Time 19.5 Seconds (9.0-12.0)
[2021-07-08 08:03] LABS: BUN Creatinine Ratio 29.7 (10-20); Calcium 8.8 mg/dl (8.5-10.1); Creatinine Clr Calc Pharmacy 50.7 ml/min; Est GFR (African American) 98.1 ml/min; Est GFR (Non-African American) 84.6 ml/min; Potassium 4.1 mmol/L (3.5-5.1)
[2021-07-08] MEDS: DOXYCYCLINE HYCLATE 100 MG in DEXTROSE 5% 100 ML IV SCH ×2 (10:00→22:12)
--- NOTE | 2021-07-08 10:07 | Cardiology Progress Note ---
Date of Service July 08, 2021 Assessment & Plan (1) Atypical chest pain: (2) Elevated troponin: (3) Paroxysmal atrial fibrillation: (4) Interstitial lung disease: (5) Hypoxia: Plan: The patient had a few short bursts of PSVT this morning. Mostly sinus on the te lemetry. At this point I think the best option for this patient is continued conservative management and utilization of beta-blockers. Antiarrhythmics are not a good option, most likely the best would be amiodarone however, with the patient's underlying lung disease and elevated liver enzymes this drug would be contraindicated. Admission and Anticipated Discharge Date Admission Date: July 05, 2021 Subjective Status unchanged. Review of Systems Review of Systems: Review of systems not obtainable due to cognitive. Physical Exam Physical Exam: General: no acute distress and stated age Head: normocephalic, no masses, lesions, tenderness or abnormalities Eyes: conjunctiva are pink and non-injected, sclera clear Neck: supple, no adenopathy, no bruits, normal jugular venous pulse, no hepatojugular reflux Chest: normal shape and normal respiratory effort Lungs: clear to auscultation and percussion Cardiac Exam: - regular rate & rhythm, no murmurs gallops or rubs - normal S1, normal S2 Pulses: 2(+) throughout Abdomen: abdomen soft, non-tender, no abnormal masses and no hepatosplenomegaly Musculoskeletal: no gait disturbance, no joint inflammation, no deforming arthritis Extremities: no edema and no cyanosis Neuro: grossly normal exam Results & Data ([facility]) Vital Signs (Past 12 Hours) Vital Signs Temp Pulse Pulse Resp BP BP Pulse Ox 07/08/21 08:39 164 H 113/67 07/08/21 07:50 36.8 C 92 H 16 119/71 93 07/08/21 07:36 89 18 93 07/08/21 03:37 36.8 C 91 H 22 110/62 91 07/08/21 01:07 91 H 20 94 07/07/21 23:53 104 H 07/07/21 22:56 36.6 C 103 H 20 112/68 90 Laboratory Results Laboratory Results - last 24 hr 07/08/21 07/08/21 07/08/21 07:13 07:13 07:13 WBC 12.68 H RBC 3.74 L Hgb 11.2 L Hct 34.0 L MCV 90.9 MCH 29.9 MCHC 32.9 RDW Std Deviation 46.3 RDW Coeff of Lobo 13.9 Plt Count 301 MPV 9.7 PT 19.5 H INR 2.0 H Sodium 134 L Potassium 4.1 Chloride 101 Carbon Dioxide 27 Anion Gap 6.0 BUN 17 Creatinine 0.58 L Est Cr Clr Drug Dosing 50.7 Est GFR ( Amer) 98.1 Est GFR (Non-Af Amer) 84.6 BUN/Creatinine Ratio 29.7 H Glucose 86 Calcium 8.8 Medications Administered Current Inpatient Medications Albuterol (Albuterol Hfa 8 Gm Inhaler) 2 puffs INH Q4R PRN PRN Reason: Shortness Of Breath Stop: 08/04/21 01:50 Last Admin: 07/06/21 09:31 Dose: 2 puffs Documented by: Aspirin (Aspirin 81 Mg Chew) 81 mg PO DAILY JOSH Stop: 08/05/21 08:59 Last Admin: 07/07/21 08:20 Dose: 81 mg Documented by: Gabapentin (Gabapentin 100 Mg Cap) 200 mg PO HS JOSH Stop: 08/04/21 20:59 Last Admin: 07/07/21 19:35 Dose: 200 mg Documented by: Doxycycline Hyclate 100 mg/ (Dextrose) 110 mls @ 50 mls/hr IV Q12 JOSH; Protocol Stop: 07/12/21 02:29 Last Infusion: 07/08/21 00:09 Dose: Infused Documented by: Ampicillin Sodium/Sulbactam Sodium 1,500 mg/ Sodium Chloride 104 mls @ 200 mls/hr IV Q6H JOSH; Protocol Stop: 07/12/21 13:59 Last Admin: 07/08/21 09:22 Dose: 200 mls/hr Documented by: Ipratropium Modale (Ipratropium [place] Neb Soln 0.02% 2.5 Ml Vial) 0.5 mg INH Q6R JOSH Stop: 08/04/21 01:59 Last Admin: 07/08/21 07:35 Dose: 0.5 mg Documented by: Lansoprazole (Lansoprazole 30 Mg Soltab) 30 mg PO DAILY JOSH; Protocol Stop: 08/05/21 08:59 Last Admin: 07/07/21 08:23 Dose: 30 mg Documented by: Levalbuterol HCl (Levalbuterol 1.25mg/0.5ml Neb) 1.25 mg INH Q6R [facility] Stop: 08/04/21 01:59 Last Admin: 07/08/21 07:35 Dose: 1.25 mg Documented by: Metoprolol Succinate (Metoprolol Succ 25mg Ext Rel Tab) 25 mg PO BID [facility] Stop: 08/06/21 20:59 Last Admin: 07/07/21 19:34 Dose: 25 mg Documented by: Metoprolol Tartrate (Metoprolol Tartrate 1 Mg/Ml Vial) 2.5 mg IV Q4 PRN PRN Reason: HR>120 Stop: 08/06/21 11:59 Last Admin: 07/08/21 08:39 Dose: 2.5 mg Documented by: Multivitamins (Multivitamin Tab) 1 tab PO QAM [facility] Stop: 08/04/21 08:59 Last Admin: 07/07/21 08:23 Dose: 1 tab Documented by: Nitroglycerin (Nitroglycerin Sl 0.4 Mg/Tab Tab) 0.4 mg SL PRN PRN PRN Reason: Chest Pain Stop: 08/04/21 08:44 Last Admin: 07/05/21 08:40 Dose: 0.4 mg Documented by: Polyethylene Glycol (Polyethylene (Miralax) 17 Gm Pack) 17 gm PO DAILY PRN PRN Reason: Constipation Stop: 08/06/21 15:11 Senna/Docusate Sodium (Docusate Sodium/Senna 50/8.6mg Tab) 1 tab PO QAM [facility] Stop: 08/07/21 08:59 Warfarin Sodium (Warfarin Sod 2.5 Mg Tab) 2.5 mg PO DAILY@1600 [facility] Stop: 08/06/21 15:59 Last Admin: 07/07/21 15:52 Dose: 2.5 mg Documented by:
[2021-07-08] MEDS: METOPROLOL SUCC 25MG EXT REL TAB PO SCH ×2 (10:10→18:30)
[2021-07-08] MEDS: LANSOPRAZOLE 30 MG SOLTAB PO SCH (10:10)
[2021-07-08] MEDS: ASPIRIN 81 MG CHEW PO SCH (10:11)
[2021-07-08] MEDS: MULTIVITAMIN TAB PO SCH (10:12)
[2021-07-08] MEDS: DOCUSATE SODIUM/SENNA 50/8.6MG TAB PO SCH (10:12)
--- NOTE | 2021-07-08 12:21 | Hospitalist Progress Note ---
Date of Service July 08, 2021 Assessment & Plan (1) Atypical chest pain: Plan: Chest pain on 07/05/2005/19/2021, resolved EKG changes showing TWI in lateral leads Elevated trop on admission Cardiology evaluation noted. Patient on aspirin and warfarin. Due to patient's age and comorbidities, advanced lung disease, she is very high risk for cardiac catheterization. Hence, we will manage medically. Chest pain though atypical, is likely due to NSTEMI vs possible due to aspiration Chest pain has since resolved Continue aspirin. Trop trend noted. Troponin peaked at 0.4 and trended down Echo showed preserved EF. Possible aspiration into the airway CXR done after onset of chest pain reports increased left lung opacity Continue Unasyn and doxycycline for now to complete 5 days treatment MANAGER DATA eval noted Tolerating minced and moist diet with aspiration precautions (2) Interstitial lung disease: (3) Leukocytosis: (4) Acute and chronic respiratory failure with hypoxia: Plan: Possibly due to interstitial lung disease +/- posssible acute on chronic diastolic heart failure Also concern for aspiration Continue oxygen supplementation. (5) Elevated troponin: Plan: As above (6) CHF (congestive heart failure): Plan: As above (7) Paroxysmal atrial fibrillation: Plan: Patient also had paroxysmal A. fib on admission and converted to sinus after Cardizem IV. Has been flipping from sinus to SVT to a flutter on telemetry monitoring Metoprolol succinate increased to 25 mg twice daily (8) DVT prophylaxis: Plan: On Coumadin Plan: Patient wanted me to update son who helps her make decision Discussed with son who reported that they would like to proceed with working towards hospice care CM notified We will transfer to [facility] and remove telemetry. Continue current medications. Continue oxygen supplementation Admission and Anticipated Discharge Date Admission Date: July 05, 2021 Subjective 86-year-old female with past medical history significant for prediabetes, paroxysmal atrial fibrillation, diastolic CHF, irritable bowel syndrome, GERD, history of protein calorie malnutrition, history of gallbladder stones, history of chronic kidney disease stage III, history of cystocele, uterine prolapse, senile osteoporosis, sensorineural hearing loss on the right side, history of pathological fracture of the vertebra, history of TIA. Presents with shortness of breath On day of admission, she had paroxysmal Afib and got IV Cardizem with conversion to sinus had chest pain yesterday that started after eating breakfast. Was noted to have possible aspiration into the airway and NSTEMI Patient seen and examined this morning. Patient has no new complaints today Review of Systems Constitutional: no fever and no chills Eyes: no problem reported Ear, Nose, Mouth, Throat: no dysphagia Respiratory: no cough and no dyspnea Cardiovascular: no chest pain, no dyspnea, no palpitations and no lightheadedness Gastrointestinal: no abdominal pain, no nausea, no vomiting and no diarrhea/loose stools Genitourinary: no dysuria and no urinary frequency Neurologic: no dizziness, no headache(s) and no confusion Psychiatric: no depression and no anxiety Physical Exam Constitutional: + well hydrated, + frail appearing and + malnourished; no acute distress Eyes: PERRL, conjunctivae normal, anicteric sclerae ENMT: external ear and nose normal, oropharynx normal Respiratory: no respiratory distress Auscultation: + crackles On venti mask Cardiovascular: Rate/Rhythm: regular rate and regular rhythm Vessels: no JVD S1 S2 Gastrointestinal (Abdomen): normal bowel sounds, soft, nontender, no hepatosplenomegaly Musculoskeletal: No pedal edema Neurologic: PERRL, EOMI, accommodation nl, no face palsy, no dysarthria Psychiatric: A+Ox3, euthymic affect Results & Data Results & Data ([facility]) Vital Signs (Past 12 Hours) Vital Signs Temp Pulse Pulse Resp BP BP BP 07/08/21 10:57 36.9 C 84 17 107/71 07/08/21 10:08 90 121/73 07/08/21 08:55 95 H 110/80 07/08/21 08:39 164 H 113/67 07/08/21 07:50 36.8 C 92 H 16 119/71 07/08/21 07:36 89 18 07/08/21 03:37 36.8 C 91 H 22 110/62 07/08/21 01:07 91 H 20 Pulse Ox 07/08/21 10:57 91 07/08/21 10:08 07/08/21 08:55 07/08/21 08:39 07/08/21 07:50 93 07/08/21 07:36 93 07/08/21 03:37 91 07/08/21 01:07 94 Laboratory Results Abnormal lab results 08/09/21 08/09/21 08/09/21 Range/Units 07:13 07:13 07:13 WBC 12.68 H (4.8-10.8) K/uL RBC 3.74 L (4.2-5.4) M/uL Hgb 11.2 L (12.0-16.0) g/dL Hct 34.0 L (37-47) % PT 19.5 H (9.0-12.0) Seconds INR 2.0 H (0.9-1.1) Sodium 134 L (136-145) mmol/L Creatinine 0.58 L (0.6-1.2) mg/dl BUN/Creatinine Ratio 29.7 H (10-20) (1) Leukocytosis Leukocytosis type: unspecified Qualified Code(s): D72.829 - Elevated white blood cell count, unspecified (2) CHF (congestive heart failure) Heart failure chronicity: acute Heart failure type: unspecified Qualified Code(s): I50.9 - Heart failure, unspecified
--- NOTE | 2021-07-08 13:21 | Palliative Care Progress Note ---
Date of Service July 08, 2021 Assessment & Plan (1) Palliative care encounter: Plan: Mrs. Peña is not capable for decision making today and has seemed overwhelmed with the previous discussion. She did give me permission to speak with her son today. I spoke to her son, Seven, on the phone and reviewed her current status. He asked about her prognosis and what the recommendation would be for her plan of care. We talked about her prognosis being poor and that she is unfortunately not likely to improve and will probably decline. We talked about her repeatedly telling me that she wanted to be at home. He would like her to have hospice at home. We discussed the hospice benefit and what would be covered. Case management and Dr. Encinas updated. (2) Acute and chronic respiratory failure with hypoxia: (3) Pulmonary fibrosis: (4) CHF (congestive heart failure): (5) Paroxysmal atrial fibrillation: Admission and Anticipated Discharge Date Admission Date: July 05, 2021 Subjective More confused this morning. Appears anxious and short of breath, but denies these symptoms. She does have her O2 off to eat lunch. She has had some subsequent episodes of SVT since yesterday but rate is currently controlled with metoprolol. Review of Systems Review of Systems: [place] Symptom Assessment Scale Pain 0/3 Anxiety 0/3 per patient report Dyspnea 0/3 per patient report Anorexia 0/3 per patient report, eating only a few bites of lunch Nausea 0/3 Drowsiness 0/3 Palliative Performance Score 30% Physical Exam Constitutional: + thin and + frail appearing Respiratory: + uses accessory muscles Cardiovascular: Extremities: no edema Musculoskeletal: Extremities: + muscle atrophy Neurologic: awake and + confused Results & Data ([facility]) Vital Signs (Past 12 Hours) Vital Signs Temp Pulse Pulse Resp BP BP BP 07/08/21 12:58 91 H 20 07/08/21 10:57 98.4 F 84 17 107/71 07/08/21 10:08 90 121/73 07/08/21 08:55 95 H 110/80 07/08/21 08:39 164 H 113/67 07/08/21 07:50 98.2 F 92 H 16 119/71 07/08/21 07:36 89 18 07/08/21 03:37 98.2 F 91 H 22 110/62 Pulse Ox 07/08/21 12:58 92 07/08/21 10:57 91 07/08/21 10:08 07/08/21 08:55 07/08/21 08:39 07/08/21 07:50 93 07/08/21 07:36 93 07/08/21 03:37 91 PG Care Time/CCT Total # of Minutes Spent Total Time Spent with Patient: Total time spent is greater than 50% in coordination of care (as documented) at patient's floor/unit and/or counseling patient: Coding Level of Care Code 52131 Subseq Hosp Care Lvl 2 Diagnoses Palliative care encounter Z51.5 Acute and chronic respiratory failure with hypoxia J96.21 Pulmonary fibrosis J84.10 CHF (congestive heart failure) I50.9 Heart failure chronicity: acute Heart failure type: unspecified Paroxysmal atrial fibrillation I48.0 (1) CHF (congestive heart failure) Heart failure chronicity: acute Heart failure type: unspecified Qualified Code(s): I50.9 - Heart failure, unspecified
[2021-07-08] MEDS: WARFARIN SOD 2.5 MG TAB PO SCH (15:31)
[2021-07-08] MEDS ORDERED: WARFARIN SOD 5 MG TAB PO SCH (16:00)
--- NOTE | 2021-07-08 17:38 | Electrocardiogram Report ---
Test Reason : Blood Pressure : / mmHG Vent. Rate : 169 BPM Atrial Rate : 187 BPM P-R Int : 000 ms QRS Dur : 080 ms QT Int : 300 ms P-R-T Axes : 000 082 172 degrees QTc Int : 503 ms Atrial fibrillation with rapid ventricular response Low voltage QRS Cannot rule out Anteroseptal infarct , age undetermined Abnormal ECG When compared with ECG of 05-JUL-2021 08:33, Atrial fibrillation has replaced Ectopic atrial rhythm Vent. rate has increased BY 86 BPM Minimal criteria for Anteroseptal infarct are now Present ST now depressed in Lateral leads Nonspecific T wave abnormality has replaced inverted T waves in Inferior leads Confirmed by George Beth ([id number]) on 07/08/2021 5:38:11 PM Referred By: REFERRED SELF Confirmed By:Kvng Beth
[2021-07-08] MEDS: ACETAMINOPHEN 325 MG TAB PO PRN (18:30)
[2021-07-08] MEDS ORDERED: ZOLPIDEM TARTRATE 5 MG TAB PO STA (20:34)
[2021-07-08] MEDS: GABAPENTIN 100 MG CAP PO SCH (20:42)
[2021-07-09] MEDS: IPRATROPIUM BROMIDE NEB SOLN 0.02% 2.5 ML VIAL INH SCH ×4 (00:29→19:05)
[2021-07-09] MEDS: LEVALBUTEROL 1.25MG/0.5ML NEB INH SCH ×4 (00:29→19:05)
[2021-07-09] MEDS: AMPICILLIN/SULBACTAM SOD 1,500 MG in 0.9 % SODIUM CHLORIDE 100 ML IV SCH ×4 (03:23→20:46)
[2021-07-09 07:42] LABS: INR 2.6 (0.9-1.1); Prothrombin Time 24.3 Seconds (9.0-12.0)
[2021-07-09] MEDS: DOXYCYCLINE HYCLATE 100 MG in DEXTROSE 5% 100 ML IV SCH ×2 (08:30→20:46)
[2021-07-09] MEDS: LANSOPRAZOLE 30 MG SOLTAB PO SCH (08:30)
[2021-07-09] MEDS: DOCUSATE SODIUM/SENNA 50/8.6MG TAB PO SCH (08:30)
[2021-07-09] MEDS: ASPIRIN 81 MG CHEW PO SCH (08:30)
[2021-07-09] MEDS: MULTIVITAMIN TAB PO SCH (08:31)
[2021-07-09] MEDS: METOPROLOL SUCC 25MG EXT REL TAB PO SCH ×2 (08:31→20:46)
--- NOTE | 2021-07-09 11:16 | Hospitalist Progress Note ---
Date of Service July 09, 2021 Assessment & Plan (1) Atypical chest pain: Plan: Chest pain on 07/05/2005/19/2021, resolved EKG changes showing TWI in lateral leads Elevated trop on admission Cardiology evaluation noted. Patient on aspirin and warfarin. Due to patient's age and comorbidities, advanced lung disease, she is very high risk for cardiac catheterization. Hence, managed medically Chest pain though atypical, is likely due to NSTEMI vs possible due to aspira tion Chest pain has since resolved Continue aspirin. Trop trend noted. Troponin peaked at 0.4 and trended down Echo showed preserved EF. Possible aspiration into the airway CXR done after onset of chest pain reports increased left lung opacity Continue Unasyn and doxycycline for now. 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 (5) Elevated troponin: Plan: As above (6) CHF (congestive heart failure): Plan: As above (7) Paroxysmal atrial fibrillation: Plan: Patient also had paroxysmal A. fib on admission and converted to sinus after Cardizem IV. Metoprolol succinate increased to 25 mg twice daily (8) DVT prophylaxis: Plan: On Coumadin (9) Moderate malnutrition: Plan: Palliative on board Patient's son wants to transition to hospice CM working on it Continue metoprolol even on hospice Medical Reception recommends it is prudent to continue anticoagulation for now even on hospice except if patient decides otherwise Admission and Anticipated Discharge Date Admission Date: July 05, 2021 Subjective 86-year-old female with past medical history significant for prediabetes, paroxysmal atrial fibrillation, diastolic CHF, irritable bowel syndrome, GERD, history of protein calorie malnutrition, history of gallbladder stones, history of chronic kidney disease stage III, history of cystocele, uterine prolapse, senile osteoporosis, sensorineural hearing loss on the right side, history of pathological fracture of the vertebra, history of TIA. Presents with shortness of breath On day of admission, she had paroxysmal Afib and got IV Cardizem with conversion to sinus had chest pain yesterday that started after eating breakfast. Was noted to have possible aspiration into the airway and NSTEMI Patient seen and examined this morning. Patient has no new complaints today On oxymask with sats in low 90s Review of Systems Constitutional: no fever and no chills Eyes: no problem reported Ear, Nose, Mouth, Throat: no dysphagia Respiratory: no cough and no dyspnea Cardiovascular: no chest pain, no dyspnea, no palpitations and no lightheadedness Gastrointestinal: no abdominal pain, no nausea, no vomiting and no diarrhea/loose stools Genitourinary: no dysuria and no urinary frequency Neurologic: no dizziness, no headache(s) and no confusion Psychiatric: no depression and no anxiety Physical Exam Constitutional: + well hydrated, + frail appearing and + malnourished; no acute distress Eyes: PERRL, conjunctivae normal, anicteric sclerae ENMT: external ear and nose normal, oropharynx normal Respiratory: no respiratory distress Auscultation: + crackles On oxyemask Cardiovascular: Rate/Rhythm: regular rate and regular rhythm Vessels: no JVD S1 S2 Gastrointestinal (Abdomen): normal bowel sounds, soft, nontender, no hepatosplenomegaly Musculoskeletal: No pedal edema Neurologic: PERRL, EOMI, accommodation nl, no face palsy, no dysarthria Psychiatric: Orientation: alert, oriented to person, oriented to place and cooperative Results & Data Results & Data ([facility]) Vital Signs (Past 12 Hours) Vital Signs Pulse Resp Pulse Ox 07/09/21 07:12 79 19 91 07/09/21 00:29 60 24 94 Laboratory Results Abnormal lab results 07/08/21 07/09/21 Range/Units 20:39 06:38 PT 24.3 H (9.0-12.0) Seconds INR 2.6 H (0.9-1.1) POC Glucose 122 H (70-99) mg/dl (1) Leukocytosis Leukocytosis type: unspecified Qualified Code(s): D72.829 - Elevated white blood cell count, unspecified (2) CHF (congestive heart failure) Heart failure chronicity: acute Heart failure type: unspecified Qualified Code(s): I50.9 - Heart failure, unspecified
[2021-07-09] MEDS: WARFARIN SOD 2.5 MG TAB PO SCH (16:28)
[2021-07-09] MEDS: GABAPENTIN 100 MG CAP PO SCH (20:46)
[2021-07-09] MEDS: ACETAMINOPHEN 325 MG TAB PO PRN (20:49)
[2021-07-09] MEDS ORDERED: LEVALBUTEROL HCL 1.25 MG/3 ML NEB NEB STA (21:05)
[2021-07-09] MEDS ORDERED: METOPROLOL TARTRATE 1 MG/ML VIAL IV PRN (22:34)
[2021-07-10] MEDS ORDERED: dilTIAZem HCl 5 MG/ML 5 ML VIAL IV STA (00:10)
[2021-07-10] MEDS ORDERED: STAT IV Infusion **Titration per Protocol STA (00:10)
[2021-07-10] MEDS ORDERED: dilTIAZem HCL 125 MG in DEXTROSE 5% 100 ML IV SCH (00:15)
[2021-07-10] MEDS: IPRATROPIUM BROMIDE NEB SOLN 0.02% 2.5 ML VIAL INH SCH ×2 (00:47→07:12)
[2021-07-10] MEDS: LEVALBUTEROL 1.25MG/0.5ML NEB INH SCH ×2 (00:47→07:12)
[2021-07-10] MEDS: AMPICILLIN/SULBACTAM SOD 1,500 MG in 0.9 % SODIUM CHLORIDE 100 ML IV SCH ×4 (01:41→18:44)
[2021-07-10] MEDS ORDERED: SODIUM CHLORIDE 0.9% 500 ML IV SCH (02:00)
[2021-07-10] MEDS ORDERED: DIGOXIN 125 MCG in SYRINGE 9.5 ML IV STA (02:03)
[2021-07-10] MEDS ORDERED: MoRPHine SULFATE 2 MG/ML CARP IV STA ×2 (02:51→09:01)
[2021-07-10] MEDS ORDERED: MoRPHine SULFATE 2 MG/ML CARP ONE ×2 (02:54→09:05)
--- NOTE | 2021-07-10 06:50 | XRay Report ---
XR chest 1V portable HISTORY: 86 years-old Female hypoxia acute hypoxia with shortness of breath COMPARISON: 07/05/2021 TECHNIQUE: AP view of the chest FINDINGS: Cardiac silhouette is enlarged. Extensive left greater than right bilateral airspace opacities have p rogressed within the left lung. Trace right and small left pleural effusions. No pneumothorax. Backgr ound reticular interstitial opacities are redemonstrated. Degenerative changes of the shoulders and s pine. IMPRESSION: 1. Chronic interstitial lung disease with progressively worsened left greater than right bilateral ai rspace opacities suggestive of asymmetric pulmonary edema versus multifocal pneumonia. 2. Trace right and small left pleural effusions. ACT 112: Negative or not required by law. The above report was generated using voice recognition software. It may contain grammatical, syntax o r spelling errors. Electronically signed by: Dutch Abbott M.D. 07/10/2021 6:48 AM
[2021-07-10] MEDS: METOPROLOL SUCC 25MG EXT REL TAB PO SCH ×2 (08:05→22:04)
[2021-07-10] MEDS: DOXYCYCLINE HYCLATE 100 MG in DEXTROSE 5% 100 ML IV SCH ×2 (08:05→22:02)
[2021-07-10] MEDS: ASPIRIN 81 MG CHEW PO SCH (08:05)
[2021-07-10 09:08] LABS: INR 3.8 (0.9-1.1)
[2021-07-10] MEDS: DOCUSATE SODIUM/SENNA 50/8.6MG TAB PO SCH (09:08)
[2021-07-10] MEDS: MULTIVITAMIN TAB PO SCH (09:08)
[2021-07-10] MEDS: LANSOPRAZOLE 30 MG SOLTAB PO SCH (09:08)
[2021-07-10] MEDS ORDERED: LEVALBUTEROL 1.25MG/0.5ML NEB INH PRN (10:29)
[2021-07-10] MEDS ORDERED: IPRATROPIUM BROMIDE NEB SOLN 0.02% 2.5 ML VIAL INH PRN (10:30)
[2021-07-10] MEDS: MoRPHine SULFATE 2 MG/ML CARP IV PRN ×4 (11:20→18:39)
[2021-07-10] MEDS: LORazepam 0.5 MG/1 ML VIAL IV PRN ×2 (11:20→15:32)
--- NOTE | 2021-07-10 12:13 | Palliative Care Progress Note ---
Date of Service July 10, 2021 Assessment & Plan (1) Dyspnea: Plan: She had one 2mg dose of morphine earlier this morning which was effective for her dyspnea. Will order prn dosing and monitor for symptom relief and opioid toxicity. (2) Anxiety: Plan: Lorazepam added prn. (3) Palliative care encounter: Plan: I spoke with her son, Seven, on the phone and updated him. He understands that her prognosis is poor and had been planning on hospice care after discharge. At this time transition to comfort measures wit most consistent with family wishes and would be in Gerri's best interest. Family will be coming in to see her shortly. Discussed with Dr. Carreon. We will continue diltiazem and bipap for now until family arrives. She is DNR/DNI. (4) Acute and chronic respiratory failure with hypoxia: (5) Pulmonary fibrosis: (6) Interstitial lung disease: (7) CHF (congestive heart failure): (8) Paroxysmal atrial fibrillation: Admission and Anticipated Discharge Date Admission Date: July 05, 2021 Subjective Lethargic. Anxious. Increased hypoxia this morning. Now on bipap with sats dropping into the 60s when removed for med administration. She does respond when her name is called. Denies pain or dyspnea but appears to be confused. Review of Systems Review of Systems: Unobtainable due to cognitive status [place] Symptom Assessment Scale Pain 0/3 Dyspnea 1/3 Anxiety 1/3 Drowsiness 2/3 Palliative Performance Score 20% Physical Exam Constitutional: + ill appearing and + thin ENMT: Mouth: + dry oral mucous membranes Respiratory: + uses accessory muscles Cardiovascular: Rate/Rhythm: + tachycardic and + irregularly irregular Gastrointestinal (Abdomen): nontender Musculoskeletal: Extremities: + muscle atrophy Neurologic: + confused Results & Data ([facility]) Vital Signs (Past 12 Hours) Vital Signs Temp Pulse Pulse Resp BP BP Pulse Ox 07/10/21 11:15 98.6 F 79 33 H 101/64 95 07/10/21 10:51 92 H 26 H 96 07/10/21 08:00 115 H 07/10/21 07:25 97.5 F L 124 H 35 H 103/67 95 07/10/21 07:12 109 H 109 H 31 H 92 07/10/21 06:10 89 L 08/11/21 04:28 122 H 90 07/10/21 04:15 104 H 07/10/21 02:50 97.9 F 142 H 30 H 105/72 92 07/10/21 02:24 140 H 31 H 94 07/10/21 01:34 141 H 100/66 07/10/21 00:47 138 H 34 H 93 PG Care Time/CCT Total # of Minutes Spent Total Time Spent with Patient: Total time spent is greater than 50% in coordination of care (as documented) at patient's floor/unit and/or counseling patient: Coding Level of Care Code 55251 Subseq Hosp Care Lvl 2 Diagnoses Dyspnea R06.00 Anxiety F41.9 Palliative care encounter Z51.5 Acute and chronic respiratory failure with hypoxia J96.21 Pulmonary fibrosis J84.10 Interstitial lung disease J84.9 CHF (congestive heart failure) I50.9 Heart failure chronicity: acute Heart failure type: unspecified Paroxysmal atrial fibrillation I48.0 (1) CHF (congestive heart failure) Heart failure chronicity: acute Heart failure type: unspecified Qualified Code(s): I50.9 - Heart failure, unspecified
[2021-07-10] MEDS: METOPROLOL TARTRATE 1 MG/ML VIAL IV PRN ×2 (13:04→16:59)
[2021-07-10] MEDS ORDERED: DIGOXIN 125 MCG in SYRINGE 9.5 ML IV ONE (18:15)
--- NOTE | 2021-07-10 19:02 | Hospitalist Progress Note ---
Date of Service July 10, 2021 Assessment & Plan (1) Atypical chest pain: Plan: Chest pain on 07/05/2005/19/2021, resolved EKG changes showing TWI in lateral leads Elevated trop on admission Cardiology evaluation noted. Patient on aspirin and warfarin. Due to patient's age and comorbidities, advanced lung disease, she is very high risk for cardiac catheterization. Hence, managed medically Chest pain though atypical, is likely due to NSTEMI vs possible due to aspira tion Chest pain has since resolved Continue aspirin. Trop trend noted. Troponin peaked at 0.4 and trended down Echo showed preserved EF. Possible aspiration into the airway CXR done after onset of chest pain reports increased left lung opacity Continue Unasyn and doxycycline for now. 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 (5) Elevated troponin: Plan: As above (6) CHF (congestive heart failure): Plan: As above (7) Paroxysmal atrial fibrillation: Plan: Patient also had paroxysmal A. fib on admission and converted to sinus after Cardizem IV. Metoprolol succinate increased to 25 mg twice daily (8) DVT prophylaxis: Plan: On Coumadin (9) Moderate malnutrition: Plan: Palliative on board Patient's son wants to transition to hospice CM working on it Continue metoprolol even on hospice [employer] [place] recommends it is prudent to continue anticoagulation for now even on hospice except if patient decides otherwise Admission and Anticipated Discharge Date Admission Date: July 05, 2021 Subjective Pt was seen and examined She was transition to hospice very frail and week Physical Exam Physical Exam: Constitutional: + well hydrated, + frail appearing and + malnourished; no acute distress Eyes: PERRL, conjunctivae normal, anicteric sclerae ENMT: external ear and nose normal, oropharynx normal Respiratory: no respiratory distress Auscultation: + crackles On oxyemask Cardiovascular: regular rate and regular rhythm Vessels: no JVD S1 S2 Gastrointestinal: normal bowel sounds, soft, nontender, no hepatosplenomegaly Musculoskeletal: No pedal edema Neurologic: PERRL, EOMI, accommodation nl, no face palsy, no dysarthria Psychiatric: Orientation: alert, oriented to person, oriented to place and cooperative Results & Data Results & Data ([facility]) Vital Signs (Past 12 Hours) Vital Signs Temp Pulse Pulse Resp BP BP BP 07/10/21 18:17 145 H 07/10/21 16:59 136 H 91/57 L 07/10/21 15:51 36.4 C L 125 H 26 H 113/67 07/10/21 15:12 92 H 07/10/21 15:08 89 24 07/10/21 13:04 115 H 07/10/21 11:15 37 C 79 33 H 101/64 07/10/21 10:51 92 H 26 H 07/10/21 08:00 115 H 07/10/21 07:25 36.4 C L 124 H 35 H 103/67 07/10/21 07:12 109 H 109 H 31 H Pulse Ox 07/10/21 18:17 07/10/21 16:59 07/10/21 15:51 93 07/10/21 15:12 07/10/21 15:08 95 07/10/21 13:04 07/10/21 11:15 95 07/10/21 10:51 96 07/10/21 08:00 07/10/21 07:25 95 07/10/21 07:12 92 (1) CHF (congestive heart failure) Heart failure chronicity: acute Heart failure type: unspecified Qualified Code(s): I50.9 - Heart failure, unspecified (2) Leukocytosis Leukocytosis type: unspecified Qualified Code(s): D72.829 - Elevated white blood cell count, unspecified
[2021-07-10] MEDS: METOPROLOL TARTRATE 1 MG/ML VIAL IV SCH (20:21)
[2021-07-10] MEDS: GABAPENTIN 100 MG CAP PO SCH (22:04)
[2021-07-10] MEDS ORDERED: ALBUMIN 25% 12.5 GM/50 ML VIAL IV ONE (22:31)
[2021-07-10] MEDS ORDERED: DIGOXIN 250 MCG in SYRINGE 9 ML IV STA (22:40)
[2021-07-10 22:54] LABS: Basophils # (auto) 0.08 K/uL (0-0.2); Basophils % (auto) 0.6 %; Eosinophils # (auto) 0.64 K/uL (0-0.5); Eosinophils % (auto) 4.6 %; Hemoglobin 11.7 g/dL (12.0-16.0); Immature Granulocytes # (auto) 0.04 K/uL (0.00-0.02); Immature Granulocytes % (auto) 0.3 %; Lymphocytes # (auto) 1.21 K/uL (1.2-3.4); Lymphocytes % (auto) 8.7 %; Mean Corpuscular Hgb Conc 32.5 g/dL (32-36); Mean Corpuscular Volume 95.2 fL (80-100); Mean Platelet Volume 9.4 fL (7.4-10.4); Monocytes # (auto) 1.84 K/uL (0.11-0.59); Monocytes % (auto) 13.2 %; Neutrophils # (auto) 10.16 K/uL (1.4-6.5); Neutrophils % (auto) 72.6 %; Platelet Count 379 K/uL (130-400); RDW Coefficient of Variation 14.2 % (11.5-14.5); Red Blood Count 3.78 M/uL (4.2-5.4); White Blood Count 13.97 K/uL (4.8-10.8)
[2021-07-10 23:12] LABS: BUN Creatinine Ratio 34.2 (10-20); Creatinine Clr Calc Pharmacy 36.8 ml/min; Est GFR (African American) 78.5 ml/min; Est GFR (Non-African American) 67.7 ml/min; Potassium 4.7 mmol/L (3.5-5.1)
[2021-07-10 23:24] LABS: RBC Morphology Unremarkable
[2021-07-11] MEDS ORDERED: ALBUMIN 25% 12.5 GM/50 ML VIAL IV ONE (00:40)
[2021-07-11] MEDS: METOPROLOL TARTRATE 1 MG/ML VIAL IV SCH ×3 (00:59→10:14)
[2021-07-11] MEDS: AMPICILLIN/SULBACTAM SOD 1,500 MG in 0.9 % SODIUM CHLORIDE 100 ML IV SCH ×2 (01:08→09:28)
[2021-07-11] MEDS ORDERED: DIGOXIN 250 MCG in SYRINGE 9 ML IV STA (01:14)
[2021-07-11 07:43] LABS: Prothrombin Time 60.7 Seconds (9.0-12.0)
[2021-07-11] MEDS: DOCUSATE SODIUM/SENNA 50/8.6MG TAB PO SCH (09:22)
[2021-07-11] MEDS: ASPIRIN 81 MG CHEW PO SCH (09:22)
[2021-07-11] MEDS: LANSOPRAZOLE 30 MG SOLTAB PO SCH (09:22)
[2021-07-11] MEDS: MULTIVITAMIN TAB PO SCH (09:22)
[2021-07-11] MEDS: MoRPHine SULFATE 2 MG/ML CARP IV PRN ×2 (09:28→11:10)
[2021-07-11] MEDS ORDERED: METOPROLOL TARTRATE 1 MG/ML VIAL IV SCH (10:00)
[2021-07-11] MEDS: DOXYCYCLINE HYCLATE 100 MG in DEXTROSE 5% 100 ML IV SCH (10:09)
[2021-07-11] MEDS ORDERED: MoRPHine SULFATE 2 MG/ML CARP IV PRN (11:16)
--- NOTE | 2021-07-11 11:18 | Palliative Care Progress Note ---
Date of Service July 11, 2021 Assessment & Plan (1) Dyspnea: Plan: Remains on bipap due to concerns of imminent if withdrawn. At this point, family has been in to visit with her and understands that her prognosis is terminal. I spoke with her son, Seven, on the phone. His wish is for her to be comfortable. We will remove bipap and titrate nasal cannula for comfort. Continue prn morphine. Frequency increased to q 30 minutes prn (2) Anxiety: Plan: Continue lorazepam (3) Palliative care encounter: Plan: She is likely to within hours. Her son is aware. Her daughter is due to arrive at any time. Goal is comfort care and peaceful . Medications other than comfort medications discontinued. Discussed with RN. (4) Acute and chronic respiratory failure with hypoxia: (5) CHF (congestive heart failure): (6) Pulmonary fibrosis: (7) Interstitial lung disease: (8) Sepsis: (9) Paroxysmal atrial fibrillation: Admission and Anticipated Discharge Date Admission Date: July 05, 2021 Subjective Lethargic. Labored breathing. Continues on bipap with 100% FiO2. Review of Systems Review of Systems: Unobtainable due to reduced consciousness [place] Symptom Assessment Scale PainAD 0/3 Dyspnea by observation 1/3 Palliative Performance Score 10% Physical Exam Constitutional: no acute distress ENMT: Mouth: + dry oral mucous membranes Respiratory: + uses accessory muscles; no respiratory distress Cardiovascular: Rate/Rhythm: + tachycardic and + irregularly irregular upper extremity edema Musculoskeletal: Extremities: + muscle atrophy Neurologic: + obtunded Results & Data ([facility]) Vital Signs (Past 12 Hours) Vital Signs Temp Pulse Pulse Resp BP BP Pulse Ox 07/11/21 10:54 101 H 23 89 L 07/11/21 09:23 120 H 172/91 H 07/11/21 08:00 96 H 07/11/21 07:04 98.6 F 120 H 22 172/91 H 90 07/11/21 06:53 113 H 38 H 89 L 07/11/21 04:25 94 H 126/79 07/11/21 04:11 98.2 F 128 H 22 122/76 90 07/11/21 02:37 129 H 31 H 91 07/11/21 02:20 133 H 07/11/21 00:59 138 H 99/66 L 07/11/21 00:42 29 H 07/10/21 23:59 139 H PG Care Time/CCT Total # of Minutes Spent Total Time Spent: 40 Total Time Spent with Patient: Total time spent is greater than 50% in coordination of care (as documented) at patient's floor/unit and/or counseling patient: goals of care, prognosis, symptom management, family support Coding Level of Care Code 22921 Subseq Hosp Care Lvl 3 Diagnoses Dyspnea R06.00 Anxiety F41.9 Palliative care encounter Z51.5 Acute and chronic respiratory failure with hypoxia J96.21 CHF (congestive heart failure) I50.9 Heart failure chronicity: acute Heart failure type: unspecified Pulmonary fibrosis J84.10 Interstitial lung disease J84.9 Sepsis A41.9 Paroxysmal atrial fibrillation I48.0 (1) CHF (congestive heart failure) Heart failure chronicity: acute Heart failure type: unspecified Qualified Code(s): I50.9 - Heart failure, unspecified
[2021-07-11] MEDS: LORazepam 0.5 MG/1 ML VIAL IV PRN (11:26)
--- NOTE | 2021-07-11 12:25 | Communication Note ---
Date of Service: July 11, 2021 note note Called from Nurse that pt ceased to breath. Pt was unresponsive with eyes closed No heart sound, no lung sound noted on auscultation No pulse and no tactile stimuli Pupils no reactive to light, dilated Time of 11:58AM Nurse notified family certificate will be complete and sign by me Lauri MD
--- NOTE | 2021-07-24 07:54 | Discharge Summary ---
Date of Service July 11, 2021 Admission HPI Per Admitting Provider CHIEF COMPLAINT: Shortness of breath and weakness. HISTORY OF PRESENT ILLNESS: This is an 86-year-old female with past medical history significant for prediabetes, paroxysmal atrial fibrillation, diastolic CHF, irritable bowel syndrome, GERD, history of protein calorie malnutrition, history of gallbladder stones, history of chronic kidney disease stage III, history of cystocele, uterine prolapse, senile osteoporosis, sensorineural hearing loss on the right side, history of pathological fracture of the vertebra, history of TIA. Presents with shortness of breath. The patient's outpatient records show she recently had PFTs and showed severe interstitial lung disease and she was supposed to follow up with pulmonary. She says she uses oxygen 2 liters all the time at home, sometimes 2.5 liters. She says she ambulates with a walker. The last 2 days she is getting more short of breath. She is not able to walk more than few feet. Denies any cough, denies any fever or chills. Denies any chest pain. No nausea, no abdominal pain. Says appetite is good and she is eating fine and she swallows okay. Denies any headache. No blurred visions, no earache. She has runny nose for the last 2 weeks. No sore throat. No abdominal pain. Normal bowel and bladder movements. She says she has noticed some blood in the urine today morning. No blood in the stools or black stools. No swelling in the legs. Currently, resting comfortably, requiring 4 liters oxygen She has temp spike in the ER. She lives alone and son lives next door. She did not had COVID vaccine. Admission Exam Per Admitting Provider GENERAL: The patient is old and frail, not in acute distress. VITAL SIGNS: Temperature T-max 37.9, pulse 82, respiratory rate 23, blood pressure 103/64, oxygen 96% on 4 liters. HEENT: Pupils equal, round and reactive to light. Oral mucosa moist. NECK: No JVD, no neck masses. CARDIOVASCULAR: S1 and S2 heard. Regular rate and rhythm. No murmur, no gallop. RESPIRATORY SYSTEM: Normal AP diameter. No accessory muscle use. Bilateral coarse rhonchi heard. No wheezing. ABDOMEN: Soft, bowel sounds present, nontender, no distention. CENTRAL NERVOUS SYSTEM: Cranial nerves II-XII grossly intact, nonfocal. EXTREMITIES: No edema, no erythema. Principal Diagnosis Interstitial lung disease: Leukocytosis: Acute and chronic respiratory failure with hypoxia: Elevated troponin: CHF (congestive heart failure): Paroxysmal atrial fibrillation: Discharge Exam Pt was unresponsive with eyes closed No heart sound, no lung sound noted on auscultation No pulse and no tactile stimuli Pupils no reactive to light, dilated Discharge Data Allergies Allergy/AdvReac Type Severity Reaction Status Date / Time Sulfa (Sulfonamide Allergy Mild rash Verified 07/04/21 22:17 Antibiotics) Macrolide Antibiotics Allergy Unknown Unknown Verified 07/04/21 22:17 niacin Allergy Unknown Unknown Verified 07/04/21 22:17 rosuvastatin [From Crestor] Allergy Unknown Unknown Verified 07/04/21 22:17 cephalexin AdvReac Intermediate Weakness Verified 07/04/21 22:17 gabapentin AdvReac Intermediate unknown Verified 07/04/21 22:17 risedronate sodium AdvReac Intermediate unknown Verified 07/04/21 22:17 Consultations 07/04/21 23:39 ED Decision to Admit Stat 07/05/21 08:00 Consult Pulmonology Routine 07/05/21 08:40 Consult Cardiology Stat 07/05/21 14:27 Consult Palliative Care Routine Hospital Course (1) Atypical chest pain: (2) Interstitial lung disease: (3) Leukocytosis: (4) Acute and chronic respiratory failure with hypoxia: (5) Elevated troponin: (6) CHF (congestive heart failure): (7) Paroxysmal atrial fibrillation: note note Called from Nurse that pt ceased to breath. Pt was unresponsive with eyes closed No heart sound, no lung sound noted on auscultation No pulse and no tactile stimuli Pupils no reactive to light, dilated Time of 11:58AM Nurse notified family certificate will be complete and sign by me Lauri MD Total Time Total Time Spent Total Time Spent (In Minutes): 30 Discharge Plan Discharge Items Patient Disposition: Discharge Diagnosis: Interstitial lung disease: Leukocytosis: Acute and chronic respiratory failure with hypoxia: Addtl Attending Provider Instructions: Time of 11:58 AM
--- NOTE | 2021-07-28 08:31 | Coding Query ---
CODING QUERY To promote full compliance with coding requirements relating to patient care, provider participation is requested in all cases of recruiting operations consultant uncertainty. Please assist us with the question(s) below: Coding Question(s): Patient admitted with shortness of breath - also atypical chest pain. Rising troponins... Please document, if known or suspected, the etiology of the atypical chest pain. Thanks for your help! Ashwin Catalan RECTIFICATION PRINTER [facility] Physician's Response(s): likely due to NSTEMI vs possible due to aspiration Principal Diagnosis: "that condition established after study, to be chiefly responsible for occasioning the admission of the patient to the hospital for care." Co-Existing Principal Diagnosis: "when two or more diagnoses equally meet the criteria for principal diagnosis as determined by the circumstances of admission, diagnostic work up, and/or therapy provided, and the Alphabetic Index, Tabular List, or another coding guideline does not provide sequencing direction, any one of the diagnoses may be sequenced first." "When the physician has documented what appears to be a current diagnosis in the body of the record, but has not included the diagnosis in the final diagnostic statement, the physician should be asked whether the diagnosis should be added." (Source [facility] 2 QTR90. p3-4) EVELINE
--- NOTE | 2021-07-28 08:34 | Coding Query ---
CODING QUERY To promote full compliance with coding requirements relating to patient care, provider participation is requested in all cases of health center associate uncertainty. Please assist us with the question(s) below: Coding Question(s): Patient admitted with shortness of breath and atypical chest pain. Progress mention pneumonia . Please check the phrase that describes the pneumonia. Thanks for your help! Ashwin Catalan EXECUTIVE KITCHEN MANAGER [facility] Physician's Response(s): Patient was treated for Pneumonia , POA Patient did not have Pneumonia Cannot Clinically Correlate if patient had Pneunonia x____ Other: Please document: Possible pneumonia Principal Diagnosis: "that condition established after study, to be chiefly responsible for occasioning the admission of the patient to the hospital for care." Co-Existing Principal Diagnosis: "when two or more diagnoses equally meet the criteria for principal diagnosis as determined by the circumstances of admission, diagnostic work up, and/or therapy provided, and the Alphabetic Index, Tabular List, or another coding guideline does not provide sequencing direction, any one of the diagnoses may be sequenced first." "When the physician has documented what appears to be a current diagnosis in the body of the record, but has not included the diagnosis in the final diagnostic statement, the physician should be asked whether the diagnosis should be added." (Source [facility]oding [facility] 2 QTR90. p3-4) EVELINE
== END 2021-07-11 11:58 | disposition expired ==
LOC: ED 21:19 → SUATTDRO 07-05 00:35 → 2S 07-05 00:35 → 3N 07-08 17:39 → 2S 07-09 22:17